=== PATIENT | male | born 1960 | race African-American/Black ===

== ENCOUNTER 2016-11-10 17:10 | Inpatient (IN) | payer MEDICARE, OTHER ==
[~2016-11-10] VITALS: Ht 170.2 cm; Wt 74.1 kg
[~2016-11-10 17:10] MED LIST: ALBU8.5H IH; AMLO10TA55 PO; ASPI-1061 PO; BECL8.7A6 IH; CARV12 PO; DOCU-119 PO; LISI-661 PO; MULT-1238 PO; PRAV20TA4 PO
[2016-11-10 17:45] LABS: ABG A-A DIFF O2 50.5 mmHg (10-20.0); ABG BASE EXCESS -3.5 mmol/L (-2.0-3.0); ABG HCO3 21.4 mmol/L (22.0-26.0); ABG OXYHEMOGLOBIN 92.8 % (94.0-100.0); ABG PCO2 45 mmHg (35-45); ABG PH 7.316 (7.35-7.450)
[2016-11-10] MEDS ORDERED: MethylPREDNISolone SOD SUCC 125 MG/2 ML VIAL IVP ONE (17:45)
[2016-11-10 17:46] LABS: ALLEN TEST, BLOOD GAS Positive; IPAP, BG 14 cm H2O
[2016-11-10 17:49] LABS: BASOPHILS # (AUTO) 0.07 K/uL (0.00-0.20); BASOPHILS % (AUTO) 0.9 % (0.0-2.0); EOSINOPHILS # (AUTO) 0.06 K/uL (0.00-0.70); EOSINOPHILS % (AUTO) 0.79 % (1.0-6.0); HEMATOCRIT 48.5 % (41-53); LYMPHOCYTES # (AUTO) 2.3 K/uL (1.0-4.8); LYMPHOCYTES % (AUTO) 30.1 % (22.0-44.0); MEAN CORPUSCULAR HEMOGLOBIN 32.2 pg (26.0-34.0); MEAN CORPUSCULAR HGB CONC 33.1 G/dL (31.0-37.0); MEAN CORPUSCULAR VOLUME 97 fL (80-100); MONOCYTES # (AUTO) 0.8 K/uL (0.1-1.0); MONOCYTES % (AUTO) 10.6 % (2.0-9.0); NEUTROPHILS # (AUTO) 4.4 K/uL (1.8-7.7); NEUTROPHILS % (AUTO) 57.6 % (40.0-70.0); PLATELET COUNT (AUTO) 282 K/uL (150-450); RED BLOOD CELL COUNT(AUTO) 4.98 MIL/uL (4.50-5.90); RED CELL DISTRIBUTION WIDTH 16.1 % (11.5-14.5); WHITE BLOOD COUNT (AUTO) 7.6 K/uL (4.5-11.0)
[2016-11-10 18:08] LABS: INR 0.9 (0.9-1.1)
[2016-11-10 18:15] LABS: B-TYPE NATRIURETIC PEPTIDE 6 pg/mL (0-100)
[2016-11-10 18:33] LABS: ALANINE AMINOTRANSFERASE 38 U/L (12-78); ALBUMIN 3.7 g/dL (3.4-5.0); ANION GAP 14 mmol/L (8-16); ASPARTATE AMINOTRANSFERASE 37 U/L (15-37); BILIRUBIN,TOTAL 0.3 mg/dL (0.1-1.0); CALCIUM, TOTAL 8.7 mg/dL (8.8-10.5); CARBON DIOXIDE 25 mmol/L (22-29); CHLORIDE 103 mmol/L (98-107); CREATINE KINASE MB 8.5 ng/mL (0-5); CREATINE KINASE, TOTAL 660 U/L (39-308); CREATININE 1.02 mg/dL (0.60-1.30); GLOMERULAR FILTR. RATE CALC > 60 mL/min (>60); SODIUM SERUM 142 mmol/L (136-145); TOTAL PROTEIN, SERUM 7.3 g/dL (6.4-8.2); UREA NITROGEN, BLOOD 7 mg/dL (7-18)
[2016-11-10 18:41] LABS: POTASSIUM 2.9 mmol/L (3.5-5.1)
[2016-11-10 19:51] LABS: APPEARANCE,URINE SLIGHTLY CLOUDY (CLEAR)
[2016-11-10 19:52] LABS: GLUCOSE, URINE (UA) NEGATIVE (NEGATIVE); KETONES,URINE NEGATIVE (NEGATIVE); OCCULT BLOOD,URINE SMALL (NEGATIVE); PROTEIN,URINE POS 1+ (NEGATIVE)
[2016-11-10 19:53] LABS: ADD UA MICROSCOPIC YES; LEUKOCYTE ESTERASE ,URINE NEGATIVE (NEGATIVE)
[2016-11-10 19:55] LABS: SQUAMOUS EPITHELIAL CELL,UR Few /LPF (None Seen)
[2016-11-10] MEDS ORDERED: ACETAMINOPHEN 325 MG TABLET PO PRN ×2 (20:00→20:30)
[2016-11-10] MEDS ORDERED: ONDANSETRON HCL 4 MG/2 ML VIAL IVP PRN ×2 (20:00→20:30)
[2016-11-10] MEDS ORDERED: 0.9% SODIUM CHLORIDE 10 ML SYRINGE IVP PRN (20:00)
[2016-11-10] MEDS: POTASSIUM CHL 10 MEQ/WATER 50 ML IV SCH ×4 (20:18→23:20)
[2016-11-10] MEDS ORDERED: BISACODYL 10 MG RECTAL RECTAL SUPPOSITORY PR PRN (20:30)
[2016-11-10] MEDS ORDERED: MAGNESIUM SULFATE 2 GM in DEXTROSE 5%-WATER 50 ML IV PRN (20:30)
[2016-11-10] MEDS ORDERED: ALBUTEROL SULFATE 2.5 MG/0.5 ML NEB SOLUTION NEB PRN (20:30)
[2016-11-10] MEDS ORDERED: MAGNESIUM OXIDE 400 MG TABLET PO PRN (20:30)
[2016-11-10] MEDS ORDERED: MAGNESIUM HYDROXIDE SUSPENSION 30 ML UDCUP PO PRN (20:30)
[2016-11-10] MEDS ORDERED: POTASSIUM CHLORIDE 20 MEQ ER TABLET PO PRN ×2 (20:30)
[2016-11-10] MEDS ORDERED: CloNIDine HCL 0.1 MG TABLET PO PRN (20:30)
[2016-11-10] MEDS ORDERED: MAGNESIUM SULFATE 4 GM/WATER 100 ML IV PRN (20:30)
[2016-11-10] MEDS ORDERED: IPRATROPIUM BROMIDE 0.5 MG/2.5 ML NEB SOLUTION NEB PRN (20:30)
[2016-11-10] MEDS ORDERED: POTASSIUM CHL 10 MEQ/WATER 50 ML IV PRN (20:30)
[2016-11-10] MEDS ORDERED: ZOLPIDEM TARTRATE 5 MG TABLET PO PRN (20:30)
[2016-11-10] MEDS: CARVEDILOL 12.5 MG TABLET PO SCH (22:15)
[2016-11-10] MEDS: PRAVASTATIN SODIUM 20 MG TABLET PO SCH (22:15)
[2016-11-10] MEDS: BECLOMETHASONE DIPR 40 MCG/PUFF 8.7 GM INHALER IH SCH (22:15)
[2016-11-10] MEDS: HEPARIN SODIUM,PORCINE 5,000 UNITS/ML VIAL SQ SCH (22:16)
[2016-11-11 07:43] LABS: EOSINOPHILS % (AUTO) 0 % (1.0-6.0); HEMATOCRIT 50.1 % (41-53); HEMOGLOBIN 16.2 g/dL (13.5-17.5); LYMPHOCYTES # (AUTO) 0.8 K/uL (1.0-4.8); LYMPHOCYTES % (AUTO) 8.2 % (22.0-44.0); MEAN CORPUSCULAR HEMOGLOBIN 31.8 pg (26.0-34.0); MEAN CORPUSCULAR HGB CONC 32.4 G/dL (31.0-37.0); MEAN CORPUSCULAR VOLUME 98 fL (80-100); MONOCYTES # (AUTO) 0.1 K/uL (0.1-1.0); NEUTROPHILS # (AUTO) 8.4 K/uL (1.8-7.7); PLATELET COUNT (AUTO) 269 K/uL (150-450); RED CELL DISTRIBUTION WIDTH 15.9 % (11.5-14.5); WHITE BLOOD COUNT (AUTO) 9.2 K/uL (4.5-11.0)
[2016-11-11 07:47] LABS: NEUTROPHILS % (AUTO) 90.8 % (40.0-70.0)
[2016-11-11 08:32] LABS: ALANINE AMINOTRANSFERASE 39 U/L (12-78); ALBUMIN 3.4 g/dL (3.4-5.0); ANION GAP 9 mmol/L (8-16); ASPARTATE AMINOTRANSFERASE 39 U/L (15-37); BILIRUBIN,TOTAL 0.7 mg/dL (0.1-1.0); CALCIUM, TOTAL 9.1 mg/dL (8.8-10.5); CARBON DIOXIDE 28 mmol/L (22-29); CHLORIDE 106 mmol/L (98-107); CHOL/HDL RATIO 1.9 (4.2-7.3); CREATININE 0.97 mg/dL (0.60-1.30); GLOMERULAR FILTR. RATE CALC > 60 mL/min (>60); POTASSIUM 4.6 mmol/L (3.5-5.1); SODIUM SERUM 143 mmol/L (136-145); THYROID STIMULATING HORMONE 0.33 uIU/mL (0.36-3.74); TOTAL PROTEIN, SERUM 7.2 g/dL (6.4-8.2); UREA NITROGEN, BLOOD 8 mg/dL (7-18)
[2016-11-11 09:01] VITALS: BP 136/79
[2016-11-11] MEDS: BECLOMETHASONE DIPR 40 MCG/PUFF 8.7 GM INHALER IH SCH ×2 (09:26→22:14)
[2016-11-11] MEDS: MethylPREDNISolone SOD SUCC 125 MG/2 ML VIAL IVP SCH ×3 (09:26→21:00)
[2016-11-11] MEDS: PANTOPRAZOLE SODIUM 40 MG DR TABLET PO SCH (09:28)
[2016-11-11] MEDS: ASPIRIN 81 MG EC TABLET PO SCH (09:28)
[2016-11-11] MEDS: AmLODIPine BESYLATE 10 MG TABLET PO SCH (09:28)
[2016-11-11] MEDS: CARVEDILOL 12.5 MG TABLET PO SCH ×2 (09:30→22:13)
[2016-11-11] MEDS: HEPARIN SODIUM,PORCINE 5,000 UNITS/ML VIAL SQ SCH ×2 (12:00→22:14)
[2016-11-11 14:05] VITALS: BP 141/92
[2016-11-11 18:55] VITALS: BP 132/81
[2016-11-11 21:46] VITALS: BP 144/86
[2016-11-11] MEDS: PRAVASTATIN SODIUM 20 MG TABLET PO SCH (22:13)
[2016-11-11 23:29] VITALS: BP 142/87
[2016-11-12 04:08] VITALS: BP 130/80
[2016-11-12 07:16] VITALS: BP 150/98
[2016-11-12] MEDS: BECLOMETHASONE DIPR 40 MCG/PUFF 8.7 GM INHALER IH SCH ×2 (07:29→21:27)
[2016-11-12] MEDS: OxyCODONE HCL/ACETAMINOPHEN 5-325 MG TABLET PO PRN ×2 (07:30→21:28)
[2016-11-12] MEDS: HEPARIN SODIUM,PORCINE 5,000 UNITS/ML VIAL SQ SCH ×2 (07:32→21:28)
[2016-11-12] MEDS: MethylPREDNISolone SOD SUCC 125 MG/2 ML VIAL IVP SCH ×3 (07:32→21:27)
[2016-11-12] MEDS: LISINOPRIL 10 MG TABLET PO SCH ×2 (09:00→11:54)
[2016-11-12 09:12] VITALS: BP 147/98
[2016-11-12] MEDS: AmLODIPine BESYLATE 10 MG TABLET PO SCH (09:13)
[2016-11-12] MEDS: PANTOPRAZOLE SODIUM 40 MG DR TABLET PO SCH (09:13)
[2016-11-12] MEDS: CARVEDILOL 12.5 MG TABLET PO SCH ×2 (09:13→21:27)
[2016-11-12] MEDS: ASPIRIN 81 MG EC TABLET PO SCH (09:14)
[2016-11-12 11:10] VITALS: BP 120/76
[2016-11-12 15:20] VITALS: BP 140/85
[2016-11-12 19:45] VITALS: BP 157/95
[2016-11-12] MEDS: PRAVASTATIN SODIUM 20 MG TABLET PO SCH (21:27)
[2016-11-13 00:33] VITALS: BP 120/78
[2016-11-13 05:47] VITALS: BP 135/76
[2016-11-13 07:17] VITALS: BP 151/92
[2016-11-13] MEDS: LISINOPRIL 10 MG TABLET PO SCH ×2 (09:00→09:17)
[2016-11-13] MEDS: BECLOMETHASONE DIPR 40 MCG/PUFF 8.7 GM INHALER IH SCH (09:17)
[2016-11-13] MEDS: ASPIRIN 81 MG EC TABLET PO SCH (09:17)
[2016-11-13] MEDS: PANTOPRAZOLE SODIUM 40 MG DR TABLET PO SCH (09:17)
[2016-11-13] MEDS: MethylPREDNISolone SOD SUCC 125 MG/2 ML VIAL IVP SCH ×2 (09:17→15:38)
[2016-11-13] MEDS: CARVEDILOL 12.5 MG TABLET PO SCH (09:17)
[2016-11-13] MEDS: AmLODIPine BESYLATE 10 MG TABLET PO SCH (09:17)
[2016-11-13] MEDS: HEPARIN SODIUM,PORCINE 5,000 UNITS/ML VIAL SQ SCH (09:18)
[2016-11-13 11:13] VITALS: BP 122/81
[2016-11-13] MEDS: OxyCODONE HCL/ACETAMINOPHEN 5-325 MG TABLET PO PRN (11:45)
[2016-11-13] MEDS ORDERED: PRED20 PO ×3 (15:18→15:20)
[2016-11-13] MEDS ORDERED: PRED10 PO ×2 (15:19→15:21)
[2016-11-13 15:36] VITALS: BP 143/78
== END 2016-11-13 16:55 | disposition home or self-care (01) | DRG 190 ==
LOC: EMS 17:13 → AHU 11-11 07:53 → UNDOADMIN 11-11 08:34 → AHU 11-11 08:34 → 5S 11-11 21:35
PROVIDERS: ADMIT Internal Medicine; ATTEND Internal Medicine
DX: J44.1 Chronic obstructive pulmonary disease with (acute) exacerbation (principal); J96.20 Acute and chronic respiratory failure, unspecified whether with hypoxia or hypercapnia; E83.51 Hypocalcemia; I10 Essential (primary) hypertension; E87.6 Hypokalemia; E78.5 Hyperlipidemia, unspecified; F12.10 Cannabis abuse, uncomplicated; F10.10 Alcohol abuse, uncomplicated; K59.00 Constipation, unspecified; E03.9 Hypothyroidism, unspecified; E78.00 Pure hypercholesterolemia, unspecified; J45.909 Unspecified asthma, uncomplicated; F17.200 Nicotine dependence, unspecified, uncomplicated; I73.9 Peripheral vascular disease, unspecified; Z88.0 Allergy status to penicillin; Z79.899 Other long term (current) drug therapy; Z79.51 Long term (current) use of inhaled steroids; Z90.49 Acquired absence of other specified parts of digestive tract; Z71.6 Tobacco abuse counseling; Z98.890 Other specified postprocedural states
CPT/HCPCS: 82306; 82805; 83735; 84443; 85379; 93005; 94640; 94660; 96361; 96374; 99285; J1644; J2930; J3480; J3535

== ENCOUNTER 2016-12-03 00:28 | Inpatient (IN) | payer MEDICARE, OTHER ==
[~2016-12-03] VITALS: Ht 167.6 cm; Wt 73.5 kg
[~2016-12-03 00:28] MED LIST changes: +PRED10 PO; +PRED20 PO
[2016-12-03] MEDS ORDERED: PRED20 PO (00:43)
[2016-12-03] MEDS ORDERED: MethylPREDNISolone SOD SUCC 125 MG/2 ML VIAL IVP ONE (01:00)
[2016-12-03] MEDS ORDERED: IPRATROPIUM BROMIDE 0.5 MG/2.5 ML NEB SOLUTION NEB ONE ×3 (01:00→03:45)
[2016-12-03] MEDS ORDERED: ALBUTEROL SULFATE 5 MG/ML 20 ML NEB SOLN [BULK] NEB ONE ×3 (01:00→03:45)
[2016-12-03] MEDS ORDERED: KETOROLAC TROMETHAMINE 30 MG/ML VIAL IM ONE (02:15)
[2016-12-03] MEDS ORDERED: MAGNESIUM SULFATE 2 GM in DEXTROSE 5%-WATER 50 ML IV ONE (04:00)
[2016-12-03 05:50] LABS: EOSINOPHILS % (AUTO) 0.1 % (1.0-6.0); HEMATOCRIT 46.4 % (41-53); LYMPHOCYTES # (AUTO) 0.3 K/uL (1.0-4.8); LYMPHOCYTES % (AUTO) 4.1 % (22.0-44.0); MEAN CORPUSCULAR HEMOGLOBIN 31.8 pg (26.0-34.0); MEAN CORPUSCULAR HGB CONC 32.4 G/dL (31.0-37.0); MEAN CORPUSCULAR VOLUME 98 fL (80-100); MONOCYTES # (AUTO) 0.1 K/uL (0.1-1.0); MONOCYTES % (AUTO) 0.6 % (2.0-9.0); NEUTROPHILS # (AUTO) 7.9 K/uL (1.8-7.7); PLATELET COUNT (AUTO) 237 K/uL (150-450); RED BLOOD CELL COUNT(AUTO) 4.73 MIL/uL (4.50-5.90); RED CELL DISTRIBUTION WIDTH 15.3 % (11.5-14.5); WHITE BLOOD COUNT (AUTO) 8.3 K/uL (4.5-11.0)
[2016-12-03 05:51] LABS: NEUTROPHILS % (AUTO) 95.2 % (40.0-70.0)
[2016-12-03 05:58] LABS: ANION GAP 13 mmol/L (8-16); CARBON DIOXIDE 24 mmol/L (22-29); CHLORIDE 101 mmol/L (98-107); CREATININE 1.37 mg/dL (0.60-1.30); GLOMERULAR FILTR. RATE CALC > 60 mL/min (>60); POTASSIUM 3.5 mmol/L (3.5-5.1); SODIUM SERUM 138 mmol/L (136-145); UREA NITROGEN, BLOOD 12 mg/dL (7-18)
[2016-12-03 06:22] LABS: ALANINE AMINOTRANSFERASE 33 U/L (12-78); ALBUMIN 3.2 g/dL (3.4-5.0); ASPARTATE AMINOTRANSFERASE 27 U/L (15-37); BILIRUBIN,TOTAL 0.2 mg/dL (0.1-1.0); CREATINE KINASE, TOTAL 363 U/L (39-308); TOTAL PROTEIN, SERUM 6.9 g/dL (6.4-8.2)
[2016-12-03] MEDS ORDERED: ACETAMINOPHEN 325 MG TABLET PO PRN ×2 (07:15→11:00)
[2016-12-03] MEDS ORDERED: MORPHINE SULFATE 2 MG/ML SYRINGE IVP PRN (10:45)
[2016-12-03] MEDS ORDERED: ALBUTEROL SULFATE 2.5 MG/0.5 ML NEB SOLUTION NEB SCH (11:00)
[2016-12-03] MEDS ORDERED: ZOLPIDEM TARTRATE 5 MG TABLET PO PRN (11:00)
[2016-12-03] MEDS ORDERED: MAGNESIUM HYDROXIDE SUSPENSION 30 ML UDCUP PO PRN (11:00)
[2016-12-03] MEDS ORDERED: IPRATROPIUM BROMIDE 0.5 MG/2.5 ML NEB SOLUTION NEB PRN (11:00)
[2016-12-03] MEDS ORDERED: ALBUTEROL SULFATE 2.5 MG/0.5 ML NEB SOLUTION NEB PRN (11:00)
[2016-12-03] MEDS ORDERED: ONDANSETRON HCL 4 MG/2 ML VIAL IVP PRN (11:00)
[2016-12-03] MEDS ORDERED: BISACODYL 10 MG RECTAL RECTAL SUPPOSITORY PR PRN (11:00)
[2016-12-03] MEDS ORDERED: IPRATROPIUM BROMIDE 0.5 MG/2.5 ML NEB SOLUTION NEB SCH (11:00)
[2016-12-03] MEDS: OxyCODONE HCL/ACETAMINOPHEN 5-325 MG TABLET PO PRN ×2 (11:20→17:54)
[2016-12-03 11:39] VITALS: BP 143/66
[2016-12-03] MEDS: MethylPREDNISolone SOD SUCC 125 MG/2 ML VIAL IVP SCH ×2 (12:57→17:46)
[2016-12-03 15:10] VITALS: BP 134/73
[2016-12-03] MEDS: BENZONATATE 100 MG CAPSULE PO SCH ×2 (17:47→21:01)
[2016-12-03] MEDS: HEPARIN SODIUM,PORCINE 5,000 UNITS/ML VIAL SQ SCH (17:47)
[2016-12-03 19:37] VITALS: BP 145/86
[2016-12-03] MEDS ORDERED: PRAVASTATIN SODIUM 20 MG TABLET PO SCH (21:00)
[2016-12-03] MEDS: IPRATROPIUM BROMIDE 0.5 MG/2.5 ML NEB SOLUTION NEB SCH (21:00)
[2016-12-03] MEDS: ALBUTEROL SULFATE 2.5 MG/0.5 ML NEB SOLUTION NEB SCH (21:00)
[2016-12-03] MEDS: DOCUSATE SODIUM 100 MG CAPSULE PO SCH (21:01)
[2016-12-03] MEDS: CARVEDILOL 12.5 MG TABLET PO SCH (21:01)
[2016-12-03] MEDS: GUAIFENESIN 600 MG PO SCH (21:01)
[2016-12-03 23:52] VITALS: BP 111/64
[2016-12-04] MEDS: MethylPREDNISolone SOD SUCC 125 MG/2 ML VIAL IVP SCH ×2 (01:43→06:34)
[2016-12-04] MEDS: HEPARIN SODIUM,PORCINE 5,000 UNITS/ML VIAL SQ SCH ×2 (01:43→08:44)
[2016-12-04] MEDS: IPRATROPIUM BROMIDE 0.5 MG/2.5 ML NEB SOLUTION NEB SCH ×2 (02:18→07:18)
[2016-12-04] MEDS: ALBUTEROL SULFATE 2.5 MG/0.5 ML NEB SOLUTION NEB SCH ×2 (02:18→07:18)
[2016-12-04] MEDS: OxyCODONE HCL/ACETAMINOPHEN 5-325 MG TABLET PO PRN ×2 (02:39→08:45)
[2016-12-04 04:39] VITALS: BP 119/69
[2016-12-04 07:26] VITALS: BP 151/98
[2016-12-04] MEDS: GUAIFENESIN 600 MG PO SCH (08:44)
[2016-12-04] MEDS: DOCUSATE SODIUM 100 MG CAPSULE PO SCH (08:45)
[2016-12-04] MEDS: CARVEDILOL 12.5 MG TABLET PO SCH (08:45)
[2016-12-04] MEDS: BENZONATATE 100 MG CAPSULE PO SCH (08:46)
[2016-12-04] MEDS ORDERED: LISINOPRIL 10 MG TABLET PO SCH (09:00)
[2016-12-04] MEDS ORDERED: PANTOPRAZOLE SODIUM 40 MG DR TABLET PO SCH (09:00)
[2016-12-04] MEDS ORDERED: AmLODIPine BESYLATE 10 MG TABLET PO SCH (09:00)
[2016-12-04] MEDS ORDERED: BECLOMETHASONE DIPR 40 MCG/PUFF 8.7 GM INHALER IH SCH (09:00)
[2016-12-04] MEDS ORDERED: ASPIRIN 81 MG EC TABLET PO SCH (09:00)
[2016-12-04 11:13] VITALS: BP 142/81
[2016-12-04] MEDS ORDERED: OMEP20 PO (12:56)
[2016-12-04] MEDS ORDERED: GUAIF600 PO (12:57)
== END 2016-12-04 13:15 | disposition home or self-care (01) | DRG 192 ==
LOC: EMS 00:29 → 5S 08:33
PROVIDERS: ADMIT Internal Medicine; ATTEND Internal Medicine
DX: J44.1 Chronic obstructive pulmonary disease with (acute) exacerbation (principal); E88.09 Other disorders of plasma-protein metabolism, not elsewhere classified; I10 Essential (primary) hypertension; E78.5 Hyperlipidemia, unspecified; F17.210 Nicotine dependence, cigarettes, uncomplicated; F12.90 Cannabis use, unspecified, uncomplicated; J45.909 Unspecified asthma, uncomplicated; E78.00 Pure hypercholesterolemia, unspecified; Z98.890 Other specified postprocedural states; Z79.82 Long term (current) use of aspirin; Z79.51 Long term (current) use of inhaled steroids; Z79.899 Other long term (current) drug therapy; Z72.89 Other problems related to lifestyle; Z88.0 Allergy status to penicillin; Z90.49 Acquired absence of other specified parts of digestive tract; Z82.5 Family history of asthma and other chronic lower respiratory diseases; Z82.49 Family history of ischemic heart disease and other diseases of the circulatory system; Z84.89 Family history of other specified conditions
CPT/HCPCS: 93005; 94640; 94644; 94645; 96365; 96366; 96372; 96375; 99285; J1644; J1885; J2930; J3475; J3535; J7060

== ENCOUNTER 2016-12-08 19:28 | Inpatient (IN) | payer MEDICARE, OTHER ==
[~2016-12-08] VITALS: Ht 167.6 cm; Wt 73.9 kg
[~2016-12-08 19:28] MED LIST changes: +GUAIF600 PO; +OMEP20 PO; -PRED10 PO
[2016-12-08] MEDS ORDERED: NITROGLYCERIN 0.4 MG SUBLINGUAL TABLET #25 SL ONE (19:30)
[2016-12-08] MEDS ORDERED: ALBUTEROL SULFATE 5 MG/ML 20 ML NEB SOLN [BULK] NEB ONE ×3 (19:35→20:45)
[2016-12-08] MEDS ORDERED: IPRATROPIUM BROMIDE 0.5 MG/2.5 ML NEB SOLUTION NEB ONE ×3 (19:35→20:45)
[2016-12-08] MEDS ORDERED: 0.9% SODIUM CHLORIDE 5 ML NEB SOLUTION NEB ONE ×2 (19:36→20:50)
[2016-12-08] MEDS ORDERED: MethylPREDNISolone SOD SUCC 125 MG/2 ML VIAL IVP ONE (19:45)
[2016-12-08] MEDS ORDERED: LORazepam 2 MG/ML VIAL IVP ONE (19:45)
[2016-12-08 19:52] LABS: GLUCOSE,POINT OF CARE 143 MG/DL (70-110)
[2016-12-08 20:01] LABS: BASOPHILS % (AUTO) 0.2 % (0.0-2.0); EOSINOPHILS % (AUTO) 0 % (1.0-6.0); HEMATOCRIT 49.8 % (41-53); HEMOGLOBIN 16.1 g/dL (13.5-17.5); LYMPHOCYTES % (AUTO) 15.6 % (22.0-44.0); MEAN CORPUSCULAR HEMOGLOBIN 31.8 pg (26.0-34.0); MEAN CORPUSCULAR HGB CONC 32.4 G/dL (31.0-37.0); MEAN CORPUSCULAR VOLUME 98 fL (80-100); MONOCYTES # (AUTO) 1.1 K/uL (0.1-1.0); MONOCYTES % (AUTO) 8.4 % (2.0-9.0); NEUTROPHILS # (AUTO) 9.5 K/uL (1.8-7.7); NEUTROPHILS % (AUTO) 75.8 % (40.0-70.0); PLATELET COUNT (AUTO) 363 K/uL (150-450); RED BLOOD CELL COUNT(AUTO) 5.07 MIL/uL (4.50-5.90); RED CELL DISTRIBUTION WIDTH 15.7 % (11.5-14.5); WHITE BLOOD COUNT (AUTO) 12.6 K/uL (4.5-11.0)
[2016-12-08 20:05] LABS: ANION GAP 9 mmol/L (8-16); CALCIUM, TOTAL 9.3 mg/dL (8.8-10.5); CARBON DIOXIDE 28 mmol/L (22-29); CHLORIDE 106 mmol/L (98-107); CREATININE 1.05 mg/dL (0.60-1.30); GLOMERULAR FILTR. RATE CALC > 60 mL/min (>60); POTASSIUM 3.6 mmol/L (3.5-5.1); SODIUM SERUM 143 mmol/L (136-145); UREA NITROGEN, BLOOD 16 mg/dL (7-18)
[2016-12-08 20:29] LABS: B-TYPE NATRIURETIC PEPTIDE 17 pg/mL (0-100)
[2016-12-08 20:36] LABS: ALANINE AMINOTRANSFERASE 48 U/L (12-78); ALBUMIN 3.7 g/dL (3.4-5.0); ASPARTATE AMINOTRANSFERASE 24 U/L (15-37); BILIRUBIN,TOTAL 0.2 mg/dL (0.1-1.0); CREATINE KINASE, TOTAL 260 U/L (39-308); TOTAL PROTEIN, SERUM 7.5 g/dL (6.4-8.2)
[2016-12-08 20:43] LABS: ABG A-A DIFF O2 252.7 mmHg (10-20.0); ABG BASE EXCESS 1.5 mmol/L (-2.0-3.0); ABG HCO3 24.6 mmol/L (22.0-26.0); ABG OXYHEMOGLOBIN 97.4 % (94.0-100.0); ABG PCO2 60 mmHg (35-45); ABG PH 7.292 (7.35-7.450); ALLEN TEST, BLOOD GAS POSITIVE; TEMPERATURE, FAHRENHEIT, BG 98.6 FAHREN (96.0-98.6)
[2016-12-08 20:44] LABS: IPAP, BG 22 cm H2O
[2016-12-08 20:57] LABS: LACTIC ACID 1.5 mmol/L (0.4-2.0)
[2016-12-08 21:06] LABS: INFLUENZA TYPE B NEGATIVE FOR TYPE B (NEGATIVE)
[2016-12-08] MEDS ORDERED: ACETAMINOPHEN 325 MG TABLET PO PRN ×2 (21:15→22:00)
[2016-12-08] MEDS ORDERED: 0.9% SODIUM CHLORIDE 10 ML SYRINGE IVP PRN (21:15)
[2016-12-08] MEDS ORDERED: ONDANSETRON HCL 4 MG/2 ML VIAL IVP PRN ×2 (21:15→22:00)
[2016-12-08 21:40] VITALS: BP 137/94
[2016-12-08] MEDS ORDERED: MAGNESIUM HYDROXIDE SUSPENSION 30 ML UDCUP PO PRN (22:00)
[2016-12-08] MEDS ORDERED: BISACODYL 10 MG RECTAL RECTAL SUPPOSITORY PR PRN (22:00)
[2016-12-08] MEDS ORDERED: GuaiFENesin/D-METHORPHAN/PHENYLEPH 5 ML LIQUID ORAL.SYG PO PRN (22:00)
[2016-12-08] MEDS ORDERED: ZOLPIDEM TARTRATE 5 MG TABLET PO PRN (22:00)
[2016-12-08] MEDS ORDERED: BENZOCAINE/MENTHOL LOZENGE [8 LOZENGES/PACKET] MM PRN (22:30)
[2016-12-08] MEDS ORDERED: SODIUM CHLORIDE 0.9% 250 ML IV ONE (23:03)
[2016-12-08] MEDS: LEVOFLOXACIN 500 MG/D5% WATER 100 ML IV SCH (23:15)
[2016-12-08 23:24] LABS: ABG A-A DIFF O2 95.7 mmHg (10-20.0); ABG BASE EXCESS 3.1 mmol/L (-2.0-3.0); ABG HCO3 26.2 mmol/L (22.0-26.0); ABG OXYHEMOGLOBIN 95.1 % (94.0-100.0); ABG PCO2 52 mmHg (35-45); ABG PH 7.359 (7.35-7.450); TEMPERATURE, FAHRENHEIT, BG 98.6 FAHREN (96.0-98.6)
[2016-12-09] VITALS (11 sets, daily range): BP systolic 124–153; BP diastolic 80–103
[2016-12-09 00:38] LABS: ALLEN TEST, BLOOD GAS Positive; IPAP, BG 20 cm H2O
[2016-12-09] MEDS: ALBUTEROL SULFATE 2.5 MG/0.5 ML NEB SOLUTION NEB PRN (03:03)
[2016-12-09] MEDS: IPRATROPIUM BROMIDE 0.5 MG/2.5 ML NEB SOLUTION NEB PRN (03:03)
[2016-12-09 03:56] LABS: APPEARANCE,URINE CLEAR (CLEAR); GLUCOSE, URINE (UA) NEGATIVE (NEGATIVE); KETONES,URINE NEGATIVE (NEGATIVE); LEUKOCYTE ESTERASE ,URINE NEGATIVE (NEGATIVE); OCCULT BLOOD,URINE NEGATIVE (NEGATIVE); PH,URINE 5.5 (5.0-8.0); PROTEIN,URINE SEE CONFIRM (NEGATIVE)
[2016-12-09] MEDS: OxyCODONE HCL/ACETAMINOPHEN 5-325 MG TABLET PO PRN ×3 (03:56→15:14)
[2016-12-09 03:57] LABS: ADD UA MICROSCOPIC YES
[2016-12-09 04:06] LABS: SULFOSALICYLIC ACID,URINE 1+ (Negative)
[2016-12-09 04:07] LABS: RBC,URINE 0-2 /HPF (0-2); WBC,URINE 0-2 /HPF (0-5)
[2016-12-09 04:08] LABS: HYALINE CASTS, URINE 0-2 /LPF (None Seen); SQUAMOUS EPITHELIAL CELL,UR Rare /LPF (None Seen)
[2016-12-09 05:17] LABS: BASOPHILS % (AUTO) 0.2 % (0.0-2.0); EOSINOPHILS % (AUTO) 0 % (1.0-6.0); HEMATOCRIT 46.5 % (41-53); HEMOGLOBIN 14.7 g/dL (13.5-17.5); LYMPHOCYTES # (AUTO) 0.6 K/uL (1.0-4.8); LYMPHOCYTES % (AUTO) 3.2 % (22.0-44.0); MEAN CORPUSCULAR HEMOGLOBIN 31.4 pg (26.0-34.0); MEAN CORPUSCULAR HGB CONC 31.6 G/dL (31.0-37.0); MEAN CORPUSCULAR VOLUME 99 fL (80-100); MONOCYTES # (AUTO) 0.3 K/uL (0.1-1.0); MONOCYTES % (AUTO) 1.7 % (2.0-9.0); NEUTROPHILS # (AUTO) 17.9 K/uL (1.8-7.7); PLATELET COUNT (AUTO) 364 K/uL (150-450); RED BLOOD CELL COUNT(AUTO) 4.68 MIL/uL (4.50-5.90); RED CELL DISTRIBUTION WIDTH 15.4 % (11.5-14.5); WHITE BLOOD COUNT (AUTO) 18.9 K/uL (4.5-11.0)
[2016-12-09 06:16] LABS: ANION GAP 8 mmol/L (8-16); CALCIUM, TOTAL 9.2 mg/dL (8.8-10.5); CARBON DIOXIDE 27 mmol/L (22-29); CHLORIDE 106 mmol/L (98-107); CREATININE 1.14 mg/dL (0.60-1.30); GLOMERULAR FILTR. RATE CALC > 60 mL/min (>60); POTASSIUM 4.7 mmol/L (3.5-5.1); SODIUM SERUM 141 mmol/L (136-145); UREA NITROGEN, BLOOD 18 mg/dL (7-18)
[2016-12-09 06:17] LABS: ALANINE AMINOTRANSFERASE 41 U/L (12-78); ALBUMIN 3.2 g/dL (3.4-5.0); ASPARTATE AMINOTRANSFERASE 23 U/L (15-37); BILIRUBIN,TOTAL 0.3 mg/dL (0.1-1.0); PHOSPHORUS 3.9 mg/dL (2.5-4.9); TOTAL PROTEIN, SERUM 6.9 g/dL (6.4-8.2)
[2016-12-09 06:37] LABS: NEUTROPHILS % (AUTO) 94.9 % (40.0-70.0)
[2016-12-09] MEDS: MethylPREDNISolone SOD SUCC 125 MG/2 ML VIAL IVP SCH ×3 (08:10→23:32)
[2016-12-09] MEDS: HEPARIN SODIUM,PORCINE 5,000 UNITS/ML VIAL SQ SCH ×2 (08:10→21:56)
[2016-12-09] MEDS: LISINOPRIL 10 MG TABLET PO SCH (08:11)
[2016-12-09] MEDS: PANTOPRAZOLE SODIUM 40 MG DR TABLET PO SCH (08:11)
[2016-12-09] MEDS: AmLODIPine BESYLATE 5 MG TABLET PO SCH (08:11)
[2016-12-09] MEDS: CARVEDILOL 12.5 MG TABLET PO SCH ×2 (08:11→21:54)
[2016-12-09] MEDS: ASPIRIN 81 MG EC TABLET PO SCH (08:11)
[2016-12-09] MEDS ORDERED: BECLOMETHASONE DIPR 40 MCG/PUFF 8.7 GM INHALER IH SCH (09:00)
[2016-12-09 11:42] LABS: ABG A-A DIFF O2 75.4 mmHg (10-20.0); ABG BASE EXCESS 3.2 mmol/L (-2.0-3.0); ABG HCO3 26.7 mmol/L (22.0-26.0); ABG OXYHEMOGLOBIN 97.4 % (94.0-100.0); ABG PCO2 48 mmHg (35-45); ABG PH 7.391 (7.35-7.450); TEMPERATURE, FAHRENHEIT, BG 98.7 FAHREN (96.0-98.6)
[2016-12-09 11:43] LABS: ALLEN TEST, BLOOD GAS Positive
[2016-12-09 11:45] LABS: IPAP, BG 16 cm H2O
[2016-12-09] MEDS: NICOTINE 7 MG/24 HOUR PATCH TD SCH ×2 (12:29→12:32)
[2016-12-09] MEDS: BUDESONIDE 0.5 MG/2 ML NEB SOLUTION NEB SCH (19:33)
[2016-12-09] MEDS: LEVOFLOXACIN 500 MG/D5% WATER 100 ML IV SCH (23:20)
[2016-12-09] MEDS: PRAVASTATIN SODIUM 20 MG TABLET PO SCH (23:20)
[2016-12-09] MEDS ORDERED: SODIUM CHLORIDE 0.9% 250 ML IV ONE (23:27)
[2016-12-10 00:06] VITALS: BP 117/84
[2016-12-10 04:10] VITALS: BP 130/87
[2016-12-10 06:56] LABS: BASOPHILS % (AUTO) 0.3 % (0.0-2.0); EOSINOPHILS % (AUTO) 0 % (1.0-6.0); HEMATOCRIT 41.1 % (41-53); HEMOGLOBIN 13.3 g/dL (13.5-17.5); LYMPHOCYTES # (AUTO) 1.1 K/uL (1.0-4.8); LYMPHOCYTES % (AUTO) 6.9 % (22.0-44.0); MEAN CORPUSCULAR HEMOGLOBIN 31.7 pg (26.0-34.0); MEAN CORPUSCULAR HGB CONC 32.3 G/dL (31.0-37.0); MEAN CORPUSCULAR VOLUME 98 fL (80-100); MONOCYTES # (AUTO) 0.5 K/uL (0.1-1.0); MONOCYTES % (AUTO) 3.3 % (2.0-9.0); NEUTROPHILS # (AUTO) 14.7 K/uL (1.8-7.7); PLATELET COUNT (AUTO) 345 K/uL (150-450); RED BLOOD CELL COUNT(AUTO) 4.19 MIL/uL (4.50-5.90); RED CELL DISTRIBUTION WIDTH 15.3 % (11.5-14.5); WHITE BLOOD COUNT (AUTO) 16.4 K/uL (4.5-11.0)
[2016-12-10 06:58] LABS: ALANINE AMINOTRANSFERASE 34 U/L (12-78); ALBUMIN 2.6 g/dL (3.4-5.0); ANION GAP 5 mmol/L (8-16); ASPARTATE AMINOTRANSFERASE 20 U/L (15-37); BILIRUBIN,TOTAL 0.2 mg/dL (0.1-1.0); CALCIUM, TOTAL 8.9 mg/dL (8.8-10.5); CARBON DIOXIDE 29 mmol/L (22-29); CHLORIDE 105 mmol/L (98-107); CREATININE 0.88 mg/dL (0.60-1.30); GLOMERULAR FILTR. RATE CALC > 60 mL/min (>60); POTASSIUM 4.3 mmol/L (3.5-5.1); SODIUM SERUM 139 mmol/L (136-145); UREA NITROGEN, BLOOD 23 mg/dL (7-18)
[2016-12-10 07:26] LABS: NEUTROPHILS % (AUTO) 89.5 % (40.0-70.0)
[2016-12-10 07:36] VITALS: BP 123/74
[2016-12-10] MEDS: MethylPREDNISolone SOD SUCC 125 MG/2 ML VIAL IVP SCH ×3 (08:31→23:57)
[2016-12-10] MEDS: AmLODIPine BESYLATE 5 MG TABLET PO SCH (08:32)
[2016-12-10] MEDS: PANTOPRAZOLE SODIUM 40 MG DR TABLET PO SCH (08:32)
[2016-12-10] MEDS: HEPARIN SODIUM,PORCINE 5,000 UNITS/ML VIAL SQ SCH ×2 (08:32→20:56)
[2016-12-10] MEDS: CARVEDILOL 12.5 MG TABLET PO SCH ×2 (08:32→20:56)
[2016-12-10] MEDS: ASPIRIN 81 MG EC TABLET PO SCH (08:32)
[2016-12-10] MEDS: LISINOPRIL 10 MG TABLET PO SCH (08:32)
[2016-12-10] MEDS: OxyCODONE HCL/ACETAMINOPHEN 5-325 MG TABLET PO PRN ×3 (08:42→20:23)
[2016-12-10] MEDS: BUDESONIDE 0.5 MG/2 ML NEB SOLUTION NEB SCH ×2 (08:57→21:10)
[2016-12-10 11:38] VITALS: BP 103/76
[2016-12-10 17:01] VITALS: BP 116/68
[2016-12-10 20:16] VITALS: BP 134/76
[2016-12-10] MEDS: PRAVASTATIN SODIUM 20 MG TABLET PO SCH (20:56)
[2016-12-10] MEDS: LEVOFLOXACIN 500 MG/D5% WATER 100 ML IV SCH (23:56)
[2016-12-11] VITALS (7 sets, daily range): BP systolic 116–128; BP diastolic 76–93
[2016-12-11] MEDS: NICOTINE 7 MG/24 HOUR PATCH TD SCH (08:16)
[2016-12-11] MEDS: CARVEDILOL 12.5 MG TABLET PO SCH ×2 (08:17→21:47)
[2016-12-11] MEDS: OxyCODONE HCL/ACETAMINOPHEN 5-325 MG TABLET PO PRN ×2 (08:17→19:24)
[2016-12-11] MEDS: ASPIRIN 81 MG EC TABLET PO SCH (08:17)
[2016-12-11] MEDS: LISINOPRIL 10 MG TABLET PO SCH (08:17)
[2016-12-11] MEDS: PANTOPRAZOLE SODIUM 40 MG DR TABLET PO SCH (08:17)
[2016-12-11] MEDS: AmLODIPine BESYLATE 5 MG TABLET PO SCH (08:17)
[2016-12-11] MEDS: MethylPREDNISolone SOD SUCC 125 MG/2 ML VIAL IVP SCH (08:18)
[2016-12-11] MEDS: HEPARIN SODIUM,PORCINE 5,000 UNITS/ML VIAL SQ SCH ×2 (08:18→21:47)
[2016-12-11] MEDS: BUDESONIDE 0.5 MG/2 ML NEB SOLUTION NEB SCH ×2 (08:53→21:03)
[2016-12-11] MEDS: ALBUTEROL SULFATE 2.5 MG/0.5 ML NEB SOLUTION NEB PRN (08:53)
[2016-12-11] MEDS: IPRATROPIUM BROMIDE 0.5 MG/2.5 ML NEB SOLUTION NEB PRN (08:54)
[2016-12-11] MEDS: MethylPREDNISolone SOD SUCC 40 MG/ML VIAL IVP SCH ×2 (15:36→23:29)
[2016-12-11] MEDS: PRAVASTATIN SODIUM 20 MG TABLET PO SCH (21:47)
[2016-12-11] MEDS: LEVOFLOXACIN 500 MG/D5% WATER 100 ML IV SCH (23:29)
[2016-12-12] VITALS (7 sets, daily range): BP systolic 101–133; BP diastolic 63–89
[2016-12-12] MEDS: HEPARIN SODIUM,PORCINE 5,000 UNITS/ML VIAL SQ SCH ×2 (08:44→20:49)
[2016-12-12] MEDS: MethylPREDNISolone SOD SUCC 40 MG/ML VIAL IVP SCH ×3 (08:44→23:14)
[2016-12-12] MEDS: LISINOPRIL 10 MG TABLET PO SCH (08:45)
[2016-12-12] MEDS: CARVEDILOL 12.5 MG TABLET PO SCH ×2 (08:45→20:49)
[2016-12-12] MEDS: AmLODIPine BESYLATE 5 MG TABLET PO SCH (08:45)
[2016-12-12] MEDS: NICOTINE 7 MG/24 HOUR PATCH TD SCH (08:45)
[2016-12-12] MEDS: ASPIRIN 81 MG EC TABLET PO SCH (08:45)
[2016-12-12] MEDS: PANTOPRAZOLE SODIUM 40 MG DR TABLET PO SCH (08:45)
[2016-12-12] MEDS: OxyCODONE HCL/ACETAMINOPHEN 5-325 MG TABLET PO PRN ×2 (08:51→20:49)
[2016-12-12] MEDS: BUDESONIDE 0.5 MG/2 ML NEB SOLUTION NEB SCH ×2 (10:16→19:19)
[2016-12-12] MEDS: IPRATROPIUM BROMIDE 0.5 MG/2.5 ML NEB SOLUTION NEB PRN (10:31)
[2016-12-12] MEDS: ALBUTEROL SULFATE 2.5 MG/0.5 ML NEB SOLUTION NEB PRN (10:31)
[2016-12-12] MEDS: ALBUTEROL SULFATE 2.5 MG/0.5 ML NEB SOLUTION NEB SCH ×3 (14:02→19:15)
[2016-12-12] MEDS: IPRATROPIUM BROMIDE 0.5 MG/2.5 ML NEB SOLUTION NEB SCH ×3 (14:02→19:14)
[2016-12-12] MEDS: PRAVASTATIN SODIUM 20 MG TABLET PO SCH (20:49)
[2016-12-12] MEDS: LEVOFLOXACIN 500 MG/D5% WATER 100 ML IV SCH (23:40)
[2016-12-13 03:41] VITALS: BP 124/74
[2016-12-13] MEDS: MethylPREDNISolone SOD SUCC 40 MG/ML VIAL IVP SCH ×2 (05:08→11:49)
[2016-12-13 07:07] VITALS: BP 134/86
[2016-12-13] MEDS: ASPIRIN 81 MG EC TABLET PO SCH (08:30)
[2016-12-13] MEDS: AmLODIPine BESYLATE 5 MG TABLET PO SCH (08:30)
[2016-12-13] MEDS: HEPARIN SODIUM,PORCINE 5,000 UNITS/ML VIAL SQ SCH ×2 (08:30→20:17)
[2016-12-13] MEDS: CARVEDILOL 12.5 MG TABLET PO SCH ×2 (08:30→20:18)
[2016-12-13] MEDS: OxyCODONE HCL/ACETAMINOPHEN 5-325 MG TABLET PO PRN ×2 (08:30→20:18)
[2016-12-13] MEDS: PANTOPRAZOLE SODIUM 40 MG DR TABLET PO SCH (08:30)
[2016-12-13] MEDS: LISINOPRIL 10 MG TABLET PO SCH (08:30)
[2016-12-13] MEDS: NICOTINE 7 MG/24 HOUR PATCH TD SCH (08:34)
[2016-12-13] MEDS ORDERED: PredniSONE 20 MG TABLET PO SCH (09:00)
[2016-12-13] MEDS: BUDESONIDE 0.5 MG/2 ML NEB SOLUTION NEB SCH ×2 (10:02→19:34)
[2016-12-13] MEDS: IPRATROPIUM BROMIDE 0.5 MG/2.5 ML NEB SOLUTION NEB SCH ×3 (10:02→19:34)
[2016-12-13] MEDS: ALBUTEROL SULFATE 2.5 MG/0.5 ML NEB SOLUTION NEB SCH ×3 (10:02→19:34)
[2016-12-13 10:39] VITALS: BP 121/74
[2016-12-13 14:38] VITALS: BP 108/67
[2016-12-13 19:20] VITALS: BP 122/69
[2016-12-13] MEDS: PRAVASTATIN SODIUM 20 MG TABLET PO SCH (20:19)
[2016-12-13] MEDS ORDERED: MethylPREDNISolone SOD SUCC 40 MG/ML VIAL IVP SCH (21:00)
[2016-12-13] MEDS: LEVOFLOXACIN 500 MG/D5% WATER 100 ML IV SCH (23:09)
[2016-12-13] MEDS ORDERED: SODIUM CHLORIDE 0.9% 250 ML IV ONE (23:12)
[2016-12-13 23:43] VITALS: BP 141/89
[2016-12-14 04:21] VITALS: BP 121/70
[2016-12-14] MEDS: ALBUTEROL SULFATE 2.5 MG/0.5 ML NEB SOLUTION NEB PRN (04:42)
[2016-12-14] MEDS: IPRATROPIUM BROMIDE 0.5 MG/2.5 ML NEB SOLUTION NEB PRN (04:42)
[2016-12-14] MEDS: OxyCODONE HCL/ACETAMINOPHEN 5-325 MG TABLET PO PRN ×3 (06:24→21:23)
[2016-12-14 06:53] LABS: BASOPHILS # (AUTO) 0.01 K/uL (0.00-0.20); EOSINOPHILS % (AUTO) 0 % (1.0-6.0); HEMOGLOBIN 14.5 g/dL (13.5-17.5); LYMPHOCYTES # (AUTO) 1.8 K/uL (1.0-4.8); LYMPHOCYTES % (AUTO) 6.1 % (22.0-44.0); MEAN CORPUSCULAR HEMOGLOBIN 32.5 pg (26.0-34.0); MEAN CORPUSCULAR HGB CONC 33.6 G/dL (31.0-37.0); MEAN CORPUSCULAR VOLUME 97 fL (80-100); MONOCYTES # (AUTO) 1.4 K/uL (0.1-1.0); MONOCYTES % (AUTO) 4.7 % (2.0-9.0); NEUTROPHILS # (AUTO) 26.1 K/uL (1.8-7.7); PLATELET COUNT (AUTO) 354 K/uL (150-450); RED BLOOD CELL COUNT(AUTO) 4.45 MIL/uL (4.50-5.90); RED CELL DISTRIBUTION WIDTH 15.7 % (11.5-14.5); WHITE BLOOD COUNT (AUTO) 29.3 K/uL (4.5-11.0)
[2016-12-14 06:56] LABS: NEUTROPHILS % (AUTO) 89.2 % (40.0-70.0); RBC MORPHOLOGY COMMENT NORMAL RBC MORPH
[2016-12-14 06:57] VITALS: BP 140/76
[2016-12-14 07:24] LABS: ALANINE AMINOTRANSFERASE 78 U/L (12-78); ALBUMIN 2.5 g/dL (3.4-5.0); ANION GAP 8 mmol/L (8-16); ASPARTATE AMINOTRANSFERASE 25 U/L (15-37); BILIRUBIN,TOTAL 0.2 mg/dL (0.1-1.0); CALCIUM, TOTAL 8.5 mg/dL (8.8-10.5); CARBON DIOXIDE 27 mmol/L (22-29); CHLORIDE 105 mmol/L (98-107); CREATININE 0.94 mg/dL (0.60-1.30); GLOMERULAR FILTR. RATE CALC > 60 mL/min (>60); POTASSIUM 3.9 mmol/L (3.5-5.1); SODIUM SERUM 140 mmol/L (136-145); TOTAL PROTEIN, SERUM 5.7 g/dL (6.4-8.2); UREA NITROGEN, BLOOD 21 mg/dL (7-18)
[2016-12-14] MEDS: LISINOPRIL 10 MG TABLET PO SCH (08:05)
[2016-12-14] MEDS: CARVEDILOL 12.5 MG TABLET PO SCH ×2 (08:05→21:17)
[2016-12-14] MEDS: PredniSONE 20 MG TABLET PO SCH (08:05)
[2016-12-14] MEDS: PANTOPRAZOLE SODIUM 40 MG DR TABLET PO SCH (08:05)
[2016-12-14] MEDS: AmLODIPine BESYLATE 5 MG TABLET PO SCH (08:05)
[2016-12-14] MEDS: ASPIRIN 81 MG EC TABLET PO SCH (08:05)
[2016-12-14] MEDS: HEPARIN SODIUM,PORCINE 5,000 UNITS/ML VIAL SQ SCH ×2 (08:06→21:17)
[2016-12-14] MEDS: NICOTINE 7 MG/24 HOUR PATCH TD SCH (08:06)
[2016-12-14] MEDS: IPRATROPIUM BROMIDE 0.5 MG/2.5 ML NEB SOLUTION NEB SCH ×4 (09:12→20:31)
[2016-12-14] MEDS: ALBUTEROL SULFATE 2.5 MG/0.5 ML NEB SOLUTION NEB SCH ×4 (09:12→20:31)
[2016-12-14] MEDS: BUDESONIDE 0.5 MG/2 ML NEB SOLUTION NEB SCH ×2 (09:21→20:31)
[2016-12-14 11:01] VITALS: BP 118/74
[2016-12-14] MEDS ORDERED: GuaiFENesin/CODEINE [SUGAR FREE] 200-20MG/10 ML SYRUP UDCUP PO PRN (14:15)
[2016-12-14 15:14] VITALS: BP 118/68
[2016-12-14 19:26] VITALS: BP 120/69
[2016-12-14] MEDS: PRAVASTATIN SODIUM 20 MG TABLET PO SCH (21:17)
[2016-12-14] MEDS: LEVOFLOXACIN 500 MG/D5% WATER 100 ML IV SCH (22:42)
[2016-12-15] VITALS: BP 123/71
[2016-12-15] MEDS: IPRATROPIUM BROMIDE 0.5 MG/2.5 ML NEB SOLUTION NEB PRN ×2 (03:17→13:12)
[2016-12-15] MEDS: ALBUTEROL SULFATE 2.5 MG/0.5 ML NEB SOLUTION NEB PRN ×2 (03:17→13:12)
[2016-12-15 04:13] VITALS: BP 119/68
[2016-12-15 07:12] LABS: BASOPHILS % (AUTO) 0.2 % (0.0-2.0); EOSINOPHILS % (AUTO) 0 % (1.0-6.0); HEMATOCRIT 43.3 % (41-53); HEMOGLOBIN 13.8 g/dL (13.5-17.5); LYMPHOCYTES # (AUTO) 3.4 K/uL (1.0-4.8); LYMPHOCYTES % (AUTO) 12.8 % (22.0-44.0); MEAN CORPUSCULAR HEMOGLOBIN 31.2 pg (26.0-34.0); MEAN CORPUSCULAR HGB CONC 31.9 G/dL (31.0-37.0); MEAN CORPUSCULAR VOLUME 98 fL (80-100); MONOCYTES # (AUTO) 0.5 K/uL (0.1-1.0); NEUTROPHILS # (AUTO) 22.7 K/uL (1.8-7.7); PLATELET COUNT (AUTO) 334 K/uL (150-450); RED BLOOD CELL COUNT(AUTO) 4.43 MIL/uL (4.50-5.90); RED CELL DISTRIBUTION WIDTH 15.5 % (11.5-14.5); WHITE BLOOD COUNT (AUTO) 26.7 K/uL (4.5-11.0)
[2016-12-15 07:25] VITALS: BP 131/77
[2016-12-15 07:37] LABS: ANION GAP 5 mmol/L (8-16); CALCIUM, TOTAL 8.6 mg/dL (8.8-10.5); CARBON DIOXIDE 31 mmol/L (22-29); CHLORIDE 103 mmol/L (98-107); CREATININE 1.21 mg/dL (0.60-1.30); GLOMERULAR FILTR. RATE CALC > 60 mL/min (>60); POTASSIUM 4.5 mmol/L (3.5-5.1); SODIUM SERUM 139 mmol/L (136-145); UREA NITROGEN, BLOOD 22 mg/dL (7-18)
[2016-12-15] MEDS: PredniSONE 20 MG TABLET PO SCH (08:02)
[2016-12-15] MEDS: ASPIRIN 81 MG EC TABLET PO SCH (08:02)
[2016-12-15] MEDS: LISINOPRIL 10 MG TABLET PO SCH (08:02)
[2016-12-15] MEDS: PANTOPRAZOLE SODIUM 40 MG DR TABLET PO SCH (08:02)
[2016-12-15] MEDS: CARVEDILOL 12.5 MG TABLET PO SCH (08:02)
[2016-12-15] MEDS: AmLODIPine BESYLATE 5 MG TABLET PO SCH (08:02)
[2016-12-15] MEDS: NICOTINE 7 MG/24 HOUR PATCH TD SCH (08:03)
[2016-12-15] MEDS: HEPARIN SODIUM,PORCINE 5,000 UNITS/ML VIAL SQ SCH (08:03)
[2016-12-15] MEDS: BUDESONIDE 0.5 MG/2 ML NEB SOLUTION NEB SCH (09:34)
[2016-12-15] MEDS: ALBUTEROL SULFATE 2.5 MG/0.5 ML NEB SOLUTION NEB SCH ×2 (09:34→13:09)
[2016-12-15] MEDS: IPRATROPIUM BROMIDE 0.5 MG/2.5 ML NEB SOLUTION NEB SCH ×2 (09:35→13:09)
[2016-12-15 09:55] LABS: RBC MORPHOLOGY COMMENT NORMAL RBC MORPH
[2016-12-15 11:43] VITALS: BP 116/70
[2016-12-15] MEDS: OxyCODONE HCL/ACETAMINOPHEN 5-325 MG TABLET PO PRN (13:23)
[2016-12-15] MEDS ORDERED: AMLO-511 PO (14:09)
[2016-12-15] MEDS ORDERED: PANT40TA25 PO (14:10)
[2016-12-15] MEDS ORDERED: BENZ1LOZ68 PO (14:12)
[2016-12-15] MEDS ORDERED: GUAI5SYR4 PO (14:13)
[2016-12-15] MEDS ORDERED: IPRNEB IH ×2 (14:13→16:47)
[2016-12-15 16:06] VITALS: BP 130/77
[2016-12-15] MEDS ORDERED: PRED20 PO ×2 (16:42→16:43)
[2016-12-15] MEDS ORDERED: PRED10 PO (16:43)
[2016-12-15] MEDS ORDERED: AUD NEB (16:46)
== END 2016-12-15 17:15 | disposition home or self-care (01) | DRG 871 ==
LOC: EMS 19:31 → ICU 21:06 → 5S 12-09 14:25 → 5N 12-12 05:40
PROVIDERS: ADMIT Internal Medicine; ATTEND Internal Medicine
PROC: 5A09457 Assistance with Respiratory Ventilation, 24-96 Consecutive Hours, Continuous Positive Airway Pressure (ICD-10-PCS; principal; 2016-12-08)
DX: A41.9 Sepsis, unspecified organism (principal); J96.01 Acute respiratory failure with hypoxia; J96.02 Acute respiratory failure with hypercapnia; J18.9 Pneumonia, unspecified organism; J44.1 Chronic obstructive pulmonary disease with (acute) exacerbation; J44.0 Chronic obstructive pulmonary disease with (acute) lower respiratory infection; E78.5 Hyperlipidemia, unspecified; K59.00 Constipation, unspecified; F12.10 Cannabis abuse, uncomplicated; E03.9 Hypothyroidism, unspecified; J20.9 Acute bronchitis, unspecified; E78.00 Pure hypercholesterolemia, unspecified; F17.210 Nicotine dependence, cigarettes, uncomplicated; F10.10 Alcohol abuse, uncomplicated; I11.0 Hypertensive heart disease with heart failure; I73.9 Peripheral vascular disease, unspecified; K59.09 Other constipation; Z90.49 Acquired absence of other specified parts of digestive tract; Z88.0 Allergy status to penicillin; Z98.890 Other specified postprocedural states; Z71.6 Tobacco abuse counseling; Z71.51 Drug abuse counseling and surveillance of drug abuser; Z79.51 Long term (current) use of inhaled steroids; Z79.82 Long term (current) use of aspirin; Z79.899 Other long term (current) drug therapy; Z83.6 Family history of other diseases of the respiratory system
CPT/HCPCS: 82805; 82962; 83605; 83735; 84100; 85379; 87040; 87070; 87081; 87205; 87804; 93005; 94640; 94644; 94645; 94660; 96374; 96375; 99291; G0480; J1644; J1956; J2060; J2920; J2930; J3535; J7050

== ENCOUNTER 2016-12-20 12:44 | Emergency (ER) | payer MEDICARE, OTHER ==
[~2016-12-20] VITALS: Ht 162.6 cm; Wt 73.6 kg
[~2016-12-20 12:44] MED LIST changes: +AMLO-511 PO; -AMLO10TA55 PO; +AUD NEB; +BENZ1LOZ68 PO; +GUAI5SYR4 PO; +IPRNEB IH; -OMEP20 PO; +PANT40TA25 PO; +PRED10 PO
[2016-12-20] MEDS ORDERED: ALBUTEROL SULFATE 2.5 MG/0.5 ML NEB SOLUTION NEB ONE (14:15)
[2016-12-20] MEDS ORDERED: IPRATROPIUM BROMIDE 0.5 MG/2.5 ML NEB SOLUTION NEB ONE (14:15)
[2016-12-20 14:35] LABS: BASOPHILS # (AUTO) 0.04 K/uL (0.00-0.20); BASOPHILS % (AUTO) 0.3 % (0.0-2.0); EOSINOPHILS % (AUTO) 0 % (1.0-6.0); HEMATOCRIT 43.4 % (41-53); HEMOGLOBIN 14.4 g/dL (13.5-17.5); LYMPHOCYTES # (AUTO) 0.7 K/uL (1.0-4.8); MEAN CORPUSCULAR HEMOGLOBIN 32.1 pg (26.0-34.0); MEAN CORPUSCULAR HGB CONC 33.2 G/dL (31.0-37.0); MEAN CORPUSCULAR VOLUME 97 fL (80-100); MONOCYTES # (AUTO) 0.3 K/uL (0.1-1.0); MONOCYTES % (AUTO) 2.1 % (2.0-9.0); NEUTROPHILS # (AUTO) 11.9 K/uL (1.8-7.7); PLATELET COUNT (AUTO) 248 K/uL (150-450); RED BLOOD CELL COUNT(AUTO) 4.49 MIL/uL (4.50-5.90); RED CELL DISTRIBUTION WIDTH 16.4 % (11.5-14.5); WHITE BLOOD COUNT (AUTO) 12.8 K/uL (4.5-11.0)
[2016-12-20 14:38] LABS: NEUTROPHILS % (AUTO) 92.6 % (40.0-70.0)
[2016-12-20 14:48] LABS: ANION GAP 6 mmol/L (8-16); CALCIUM, TOTAL 8.6 mg/dL (8.8-10.5); CARBON DIOXIDE 30 mmol/L (22-29); CHLORIDE 106 mmol/L (98-107); CREATININE 1.03 mg/dL (0.60-1.30); GLOMERULAR FILTR. RATE CALC > 60 mL/min (>60); SODIUM SERUM 142 mmol/L (136-145); UREA NITROGEN, BLOOD 19 mg/dL (7-18)
[2016-12-20 15:05] LABS: B-TYPE NATRIURETIC PEPTIDE 24 pg/mL (0-100)
[2016-12-20 15:12] LABS: ALANINE AMINOTRANSFERASE 65 U/L (12-78); ALBUMIN 2.8 g/dL (3.4-5.0); ASPARTATE AMINOTRANSFERASE 24 U/L (15-37); BILIRUBIN,TOTAL 0.2 mg/dL (0.1-1.0); CREATINE KINASE MB 3.8 ng/mL (0-5); CREATINE KINASE, TOTAL 144 U/L (39-308); TOTAL PROTEIN, SERUM 5.8 g/dL (6.4-8.2)
[2016-12-20 16:09] LABS: APPEARANCE,URINE CLEAR (CLEAR); GLUCOSE, URINE (UA) 100 mg/dL (NEGATIVE); KETONES,URINE NEGATIVE (NEGATIVE); LEUKOCYTE ESTERASE ,URINE NEGATIVE (NEGATIVE); OCCULT BLOOD,URINE NEGATIVE (NEGATIVE); PROTEIN,URINE TRACE (NEGATIVE)
[2016-12-20 16:19] LABS: RBC,URINE None Seen /HPF (0-2); WBC,URINE 0-2 /HPF (0-5)
[2016-12-20 17:58] VITALS: BP 127/76
== END 2016-12-20 18:30 | disposition home or self-care (01) ==
LOC: EMS 12:46
DX: R60.0 Localized edema (principal); E78.00 Pure hypercholesterolemia, unspecified; I10 Essential (primary) hypertension; J45.909 Unspecified asthma, uncomplicated; J44.9 Chronic obstructive pulmonary disease, unspecified; F12.90 Cannabis use, unspecified, uncomplicated; Z79.82 Long term (current) use of aspirin; Z88.0 Allergy status to penicillin
CPT/HCPCS: 51702; 71020; 93005; 93041; 93971; 94640; 99285

== ENCOUNTER 2016-12-22 03:05 | Inpatient (IN) | payer MEDICARE, OTHER ==
[~2016-12-22] VITALS: Ht 162.6 cm; Wt 78.8 kg
[2016-12-22] MEDS ORDERED: FLUT1BLS PO (03:13)
[2016-12-22] MEDS ORDERED: AMLO10TA55 PO (03:13)
[2016-12-22] MEDS ORDERED: OXYC-522 PO (03:13)
[2016-12-22] MEDS ORDERED: UMEC62.5 PO (03:13)
[2016-12-22] MEDS ORDERED: ATOR40TA71 PO (03:13)
[2016-12-22] MEDS ORDERED: 0.9% SODIUM CHLORIDE 15 ML NEB SOLUTION NEB ONE (03:18)
[2016-12-22] MEDS ORDERED: IPRATROPIUM BROMIDE 0.5 MG/2.5 ML NEB SOLUTION NEB ONE ×2 (03:18→03:30)
[2016-12-22] MEDS ORDERED: MethylPREDNISolone SOD SUCC 125 MG/2 ML VIAL IVP ONE (03:30)
[2016-12-22] MEDS ORDERED: ALBUTEROL SULFATE 5 MG/ML 20 ML NEB SOLN [BULK] NEB ONE (03:30)
[2016-12-22 03:53] LABS: ABG A-A DIFF O2 118.5 mmHg (10-20.0); ABG BASE EXCESS 7.4 mmol/L (-2.0-3.0); ABG HCO3 29.4 mmol/L (22.0-26.0); ABG OXYHEMOGLOBIN 97.2 % (94.0-100.0); ABG PCO2 57 mmHg (35-45); ABG PH 7.372 (7.35-7.450); TEMPERATURE, FAHRENHEIT, BG 97.4 FAHREN (96.0-98.6)
[2016-12-22 03:55] LABS: ALLEN TEST, BLOOD GAS Positive; IPAP, BG 18 cm H2O
[2016-12-22 04:07] LABS: BASOPHILS # (AUTO) 0.07 K/uL (0.00-0.20); BASOPHILS % (AUTO) 0.5 % (0.0-2.0); EOSINOPHILS # (AUTO) 0.01 K/uL (0.00-0.70); EOSINOPHILS % (AUTO) 0.07 % (1.0-6.0); HEMATOCRIT 45.3 % (41-53); HEMOGLOBIN 14.8 g/dL (13.5-17.5); LYMPHOCYTES # (AUTO) 2.7 K/uL (1.0-4.8); LYMPHOCYTES % (AUTO) 20.7 % (22.0-44.0); MEAN CORPUSCULAR HEMOGLOBIN 31.9 pg (26.0-34.0); MEAN CORPUSCULAR HGB CONC 32.7 G/dL (31.0-37.0); MEAN CORPUSCULAR VOLUME 98 fL (80-100); MONOCYTES # (AUTO) 0.9 K/uL (0.1-1.0); MONOCYTES % (AUTO) 6.8 % (2.0-9.0); NEUTROPHILS # (AUTO) 9.3 K/uL (1.8-7.7); NEUTROPHILS % (AUTO) 71.9 % (40.0-70.0); PLATELET COUNT (AUTO) 245 K/uL (150-450); RED BLOOD CELL COUNT(AUTO) 4.65 MIL/uL (4.50-5.90); RED CELL DISTRIBUTION WIDTH 16.4 % (11.5-14.5)
[2016-12-22 04:16] LABS: ANION GAP 4 mmol/L (8-16); CALCIUM, TOTAL 8.6 mg/dL (8.8-10.5); CARBON DIOXIDE 34 mmol/L (22-29); CHLORIDE 104 mmol/L (98-107); CREATININE 0.99 mg/dL (0.60-1.30); GLOMERULAR FILTR. RATE CALC > 60 mL/min (>60); POTASSIUM 3.9 mmol/L (3.5-5.1); SODIUM SERUM 142 mmol/L (136-145); UREA NITROGEN, BLOOD 19 mg/dL (7-18)
[2016-12-22 04:41] LABS: ALANINE AMINOTRANSFERASE 64 U/L (12-78); ASPARTATE AMINOTRANSFERASE 25 U/L (15-37); BILIRUBIN,TOTAL 0.3 mg/dL (0.1-1.0); CREATINE KINASE MB 3.8 ng/mL (0-5); CREATINE KINASE, TOTAL 146 U/L (39-308); TOTAL PROTEIN, SERUM 6.1 g/dL (6.4-8.2)
[2016-12-22 04:54] LABS: B-TYPE NATRIURETIC PEPTIDE 11 pg/mL (0-100)
[2016-12-22] MEDS ORDERED: ACETAMINOPHEN 325 MG TABLET PO PRN (06:00)
[2016-12-22] MEDS ORDERED: MAGNESIUM HYDROXIDE SUSPENSION 30 ML UDCUP PO PRN (06:00)
[2016-12-22] MEDS ORDERED: ONDANSETRON HCL 4 MG/2 ML VIAL IVP PRN (06:00)
[2016-12-22] MEDS ORDERED: BISACODYL 10 MG RECTAL RECTAL SUPPOSITORY PR PRN (06:00)
[2016-12-22] MEDS ORDERED: ZOLPIDEM TARTRATE 5 MG TABLET PO PRN (06:00)
[2016-12-22 06:20] VITALS: BP 124/89
[2016-12-22] MEDS: IPRATROPIUM BROMIDE 0.5 MG/2.5 ML NEB SOLUTION NEB SCH ×3 (07:17→20:34)
[2016-12-22] MEDS: ALBUTEROL SULFATE 2.5 MG/0.5 ML NEB SOLUTION NEB SCH ×3 (07:17→20:34)
[2016-12-22 08:00] VITALS: BP 118/77
[2016-12-22] MEDS ORDERED: FLUTICASONE/VILANTEROL 200-25 MCG/INH INHALER [14] IH SCH (09:00)
[2016-12-22] MEDS: PANTOPRAZOLE SODIUM 40 MG DR TABLET PO SCH (09:13)
[2016-12-22] MEDS: OxyCODONE HCL/ACETAMINOPHEN 5-325 MG TABLET PO PRN ×3 (09:14→20:37)
[2016-12-22] MEDS: MethylPREDNISolone SOD SUCC 125 MG/2 ML VIAL IVP SCH ×4 (09:14→20:35)
[2016-12-22] MEDS: ASPIRIN 81 MG EC TABLET PO SCH (09:14)
[2016-12-22] MEDS: HEPARIN SODIUM,PORCINE 5,000 UNITS/ML VIAL SQ SCH ×2 (09:14→20:35)
[2016-12-22] MEDS: AmLODIPine BESYLATE 10 MG TABLET PO SCH (09:14)
[2016-12-22] MEDS: ATORVASTATIN CALCIUM 40 MG TABLET PO SCH (10:19)
[2016-12-22 10:47] LABS: ABG A-A DIFF O2 118.2 mmHg (10-20.0); ABG BASE EXCESS -0.3 mmol/L (-2.0-3.0); ABG HCO3 24.1 mmol/L (22.0-26.0); ABG OXYHEMOGLOBIN 90.6 % (94.0-100.0); ABG PCO2 41 mmHg (35-45); ABG PH 7.399 (7.35-7.450); TEMPERATURE, FAHRENHEIT, BG 97.8 FAHREN (96.0-98.6)
[2016-12-22 10:48] LABS: ALLEN TEST, BLOOD GAS Positive
[2016-12-22 12:00] VITALS: BP 144/91
[2016-12-22 16:00] VITALS: BP 124/78
[2016-12-22] MEDS ORDERED: 0.9% SODIUM CHLORIDE 10 ML SYRINGE IVP PRN (17:00)
[2016-12-22 19:10] LABS: APPEARANCE,URINE CLEAR (CLEAR); GLUCOSE, URINE (UA) 500 mg/dL (NEGATIVE); KETONES,URINE NEGATIVE (NEGATIVE); LEUKOCYTE ESTERASE ,URINE NEGATIVE (NEGATIVE); OCCULT BLOOD,URINE NEGATIVE (NEGATIVE); PROTEIN,URINE TRACE (NEGATIVE)
[2016-12-22 19:20] LABS: ADD UA MICROSCOPIC YES
[2016-12-22 19:39] LABS: RBC,URINE None Seen /HPF (0-2); SQUAMOUS EPITHELIAL CELL,UR Rare /LPF (None Seen); WBC,URINE 0-2 /HPF (0-5)
[2016-12-22] MEDS: BUDESONIDE 0.5 MG/2 ML NEB SOLUTION NEB SCH (20:34)
[2016-12-22 20:40] VITALS: BP 128/65
[2016-12-22 23:53] VITALS: BP 116/75
[2016-12-23] MEDS: GuaiFENesin/D-METHORPHAN/PHENYLEPH 5 ML LIQUID ORAL.SYG PO PRN (02:15)
[2016-12-23] MEDS: ALBUTEROL SULFATE 2.5 MG/0.5 ML NEB SOLUTION NEB SCH ×4 (02:39→20:24)
[2016-12-23] MEDS: IPRATROPIUM BROMIDE 0.5 MG/2.5 ML NEB SOLUTION NEB SCH ×4 (02:39→20:24)
[2016-12-23 04:33] VITALS: BP 143/84
[2016-12-23 06:06] LABS: EOSINOPHILS % (AUTO) 0.01 % (1.0-6.0); HEMATOCRIT 39.9 % (41-53); HEMOGLOBIN 13.3 g/dL (13.5-17.5); LYMPHOCYTES # (AUTO) 1.1 K/uL (1.0-4.8); LYMPHOCYTES % (AUTO) 7.2 % (22.0-44.0); MEAN CORPUSCULAR HEMOGLOBIN 32.5 pg (26.0-34.0); MEAN CORPUSCULAR HGB CONC 33.4 G/dL (31.0-37.0); MEAN CORPUSCULAR VOLUME 97 fL (80-100); MONOCYTES # (AUTO) 0.3 K/uL (0.1-1.0); MONOCYTES % (AUTO) 2.1 % (2.0-9.0); NEUTROPHILS # (AUTO) 14.1 K/uL (1.8-7.7); PLATELET COUNT (AUTO) 219 K/uL (150-450); RED CELL DISTRIBUTION WIDTH 15.9 % (11.5-14.5); WHITE BLOOD COUNT (AUTO) 15.5 K/uL (4.5-11.0)
[2016-12-23 06:37] LABS: ALANINE AMINOTRANSFERASE 60 U/L (12-78); ALBUMIN 2.5 g/dL (3.4-5.0); ANION GAP 8 mmol/L (8-16); ASPARTATE AMINOTRANSFERASE 21 U/L (15-37); BILIRUBIN,TOTAL 0.3 mg/dL (0.1-1.0); CARBON DIOXIDE 30 mmol/L (22-29); CHLORIDE 105 mmol/L (98-107); CHOL/HDL RATIO 1.9 (4.2-7.3); CREATININE 0.86 mg/dL (0.60-1.30); GLOMERULAR FILTR. RATE CALC > 60 mL/min (>60); PHOSPHORUS 3.1 mg/dL (2.5-4.9); POTASSIUM 4.3 mmol/L (3.5-5.1); SODIUM SERUM 143 mmol/L (136-145); THYROID STIMULATING HORMONE 0.13 uIU/mL (0.36-3.74); TOTAL PROTEIN, SERUM 5.6 g/dL (6.4-8.2); UREA NITROGEN, BLOOD 20 mg/dL (7-18)
[2016-12-23 06:58] LABS: NEUTROPHILS % (AUTO) 90.7 % (40.0-70.0); RBC MORPHOLOGY COMMENT NORMAL RBC MORPH
[2016-12-23 07:55] VITALS: BP 150/87
[2016-12-23] MEDS: PANTOPRAZOLE SODIUM 40 MG DR TABLET PO SCH (07:56)
[2016-12-23] MEDS: ASPIRIN 81 MG EC TABLET PO SCH (07:56)
[2016-12-23] MEDS: ATORVASTATIN CALCIUM 40 MG TABLET PO SCH (07:56)
[2016-12-23] MEDS: HEPARIN SODIUM,PORCINE 5,000 UNITS/ML VIAL SQ SCH ×2 (07:56→19:56)
[2016-12-23] MEDS: MethylPREDNISolone SOD SUCC 125 MG/2 ML VIAL IVP SCH ×4 (07:56→19:56)
[2016-12-23] MEDS: AmLODIPine BESYLATE 10 MG TABLET PO SCH (07:57)
[2016-12-23] MEDS: BUDESONIDE 0.5 MG/2 ML NEB SOLUTION NEB SCH ×2 (09:15→20:24)
[2016-12-23 12:00] VITALS: BP 152/80
[2016-12-23 15:43] VITALS: BP 107/66
[2016-12-23] MEDS: OxyCODONE HCL/ACETAMINOPHEN 5-325 MG TABLET PO PRN ×2 (15:46→19:56)
[2016-12-23] MEDS ORDERED: BARIUM SULFATE 0.1% SUSPENSION 450 ML BOTTLE ONE (17:28)
[2016-12-23] MEDS ORDERED: SODIUM CHLORIDE 0.9% 100 ML ONE (18:42)
[2016-12-23] MEDS ORDERED: IOVERSOL 350 MG/ML 100 ML VIAL ONE (18:42)
[2016-12-23 19:27] VITALS: BP 127/66
[2016-12-23 19:38] VITALS: BP 134/83
[2016-12-24 00:43] VITALS: BP 134/80
[2016-12-24] MEDS: GuaiFENesin/D-METHORPHAN/PHENYLEPH 5 ML LIQUID ORAL.SYG PO PRN ×2 (00:46→08:37)
[2016-12-24] MEDS: OxyCODONE HCL/ACETAMINOPHEN 5-325 MG TABLET PO PRN ×2 (00:46→08:37)
[2016-12-24] MEDS: BENZOCAINE/MENTHOL LOZENGE [8 LOZENGES/PACKET] MM PRN ×2 (00:47→08:38)
[2016-12-24] MEDS: ALBUTEROL SULFATE 2.5 MG/0.5 ML NEB SOLUTION NEB SCH ×2 (02:23→09:27)
[2016-12-24] MEDS: IPRATROPIUM BROMIDE 0.5 MG/2.5 ML NEB SOLUTION NEB SCH ×2 (02:24→09:28)
[2016-12-24 04:45] VITALS: BP 129/83
[2016-12-24 07:28] LABS: EOSINOPHILS % (AUTO) 0 % (1.0-6.0); HEMATOCRIT 43.9 % (41-53); HEMOGLOBIN 13.9 g/dL (13.5-17.5); LYMPHOCYTES # (AUTO) 0.9 K/uL (1.0-4.8); LYMPHOCYTES % (AUTO) 4.5 % (22.0-44.0); MEAN CORPUSCULAR HEMOGLOBIN 31.1 pg (26.0-34.0); MEAN CORPUSCULAR HGB CONC 31.6 G/dL (31.0-37.0); MEAN CORPUSCULAR VOLUME 98 fL (80-100); MONOCYTES # (AUTO) 1.1 K/uL (0.1-1.0); MONOCYTES % (AUTO) 5.5 % (2.0-9.0); NEUTROPHILS # (AUTO) 18.6 K/uL (1.8-7.7); PLATELET COUNT (AUTO) 233 K/uL (150-450); RED BLOOD CELL COUNT(AUTO) 4.46 MIL/uL (4.50-5.90); RED CELL DISTRIBUTION WIDTH 15.9 % (11.5-14.5); WHITE BLOOD COUNT (AUTO) 20.7 K/uL (4.5-11.0)
[2016-12-24 07:37] LABS: ANION GAP 3 mmol/L (8-16); CALCIUM, TOTAL 9.2 mg/dL (8.8-10.5); CARBON DIOXIDE 34 mmol/L (22-29); CHLORIDE 104 mmol/L (98-107); CREATININE 0.94 mg/dL (0.60-1.30); GLOMERULAR FILTR. RATE CALC > 60 mL/min (>60); POTASSIUM 5.1 mmol/L (3.5-5.1); SODIUM SERUM 141 mmol/L (136-145); UREA NITROGEN, BLOOD 19 mg/dL (7-18)
[2016-12-24 07:43] LABS: ALANINE AMINOTRANSFERASE 65 U/L (12-78); ALBUMIN 2.9 g/dL (3.4-5.0); ASPARTATE AMINOTRANSFERASE 26 U/L (15-37); BILIRUBIN,TOTAL 0.2 mg/dL (0.1-1.0)
[2016-12-24] MEDS ORDERED: PredniSONE 20 MG TABLET PO ONE (07:45)
[2016-12-24 07:46] VITALS: BP 93/63
[2016-12-24 07:50] VITALS: BP 138/97
[2016-12-24] MEDS: HEPARIN SODIUM,PORCINE 5,000 UNITS/ML VIAL SQ SCH (08:35)
[2016-12-24] MEDS: MethylPREDNISolone SOD SUCC 125 MG/2 ML VIAL IVP SCH (08:36)
[2016-12-24] MEDS: AmLODIPine BESYLATE 10 MG TABLET PO SCH (08:36)
[2016-12-24] MEDS: ASPIRIN 81 MG EC TABLET PO SCH (08:36)
[2016-12-24] MEDS: ATORVASTATIN CALCIUM 40 MG TABLET PO SCH (08:36)
[2016-12-24] MEDS: PANTOPRAZOLE SODIUM 40 MG DR TABLET PO SCH (08:39)
[2016-12-24] MEDS: BUDESONIDE 0.5 MG/2 ML NEB SOLUTION NEB SCH (09:27)
[2016-12-24] MEDS ORDERED: PRED20 PO ×3 (09:30→09:33)
== END 2016-12-24 11:00 | disposition home or self-care (01) | DRG 189 ==
LOC: EMS 03:06 → ICU 05:28 → 6N 20:21
PROVIDERS: ADMIT Internal Medicine; ATTEND Internal Medicine
PROC: 5A09357 Assistance with Respiratory Ventilation, Less than 24 Consecutive Hours, Continuous Positive Airway Pressure (ICD-10-PCS; principal; 2016-12-22)
DX: J96.01 Acute respiratory failure with hypoxia (principal); E44.0 Moderate protein-calorie malnutrition; J44.1 Chronic obstructive pulmonary disease with (acute) exacerbation; F10.10 Alcohol abuse, uncomplicated; F17.210 Nicotine dependence, cigarettes, uncomplicated; I10 Essential (primary) hypertension; E78.5 Hyperlipidemia, unspecified; K59.00 Constipation, unspecified; F12.10 Cannabis abuse, uncomplicated; E21.3 Hyperparathyroidism, unspecified; E03.9 Hypothyroidism, unspecified; E78.00 Pure hypercholesterolemia, unspecified; G89.29 Other chronic pain; I73.9 Peripheral vascular disease, unspecified; J45.909 Unspecified asthma, uncomplicated; Z98.890 Other specified postprocedural states; J96.02 Acute respiratory failure with hypercapnia; Z90.49 Acquired absence of other specified parts of digestive tract; Z88.0 Allergy status to penicillin; Z79.82 Long term (current) use of aspirin; Z79.1 Long term (current) use of non-steroidal anti-inflammatories (NSAID); Z79.51 Long term (current) use of inhaled steroids; Z79.899 Other long term (current) drug therapy; Z71.6 Tobacco abuse counseling; Z71.51 Drug abuse counseling and surveillance of drug abuser; Z71.41 Alcohol abuse counseling and surveillance of alcoholic; Z68.29 Body mass index [BMI] 29.0-29.9, adult; Z83.6 Family history of other diseases of the respiratory system
CPT/HCPCS: 71260; 80307; 82306; 82805; 83735; 84100; 84443; 87040; 87081; 93005; 94640; 94644; 94660; 96374; 99291; J1644; J2930; J7050

== ENCOUNTER 2017-01-07 02:53 | Inpatient (IN) | payer MEDICARE, OTHER ==
[~2017-01-07] VITALS: Ht 167.6 cm; Wt 76.4 kg
[~2017-01-07 02:53] MED LIST changes: -AMLO-511 PO; +AMLO10TA55 PO; +ATOR40TA71 PO; -BECL8.7A6 IH; -BENZ1LOZ68 PO; -CARV12 PO; -DOCU-119 PO; +FLUT1BLS PO; -GUAI5SYR4 PO; -GUAIF600 PO; -LISI-661 PO; -MULT-1238 PO; -PANT40TA25 PO; -PRAV20TA4 PO; -PRED10 PO; +UMEC62.5 PO
[2017-01-07] MEDS ORDERED: MethylPREDNISolone SOD SUCC 125 MG/2 ML VIAL IVP ONE (03:30)
[2017-01-07] MEDS ORDERED: IPRATROPIUM BROMIDE 0.5 MG/2.5 ML NEB SOLUTION NEB ONE ×3 (03:30→05:45)
[2017-01-07] MEDS ORDERED: ALBUTEROL SULFATE 5 MG/ML 20 ML NEB SOLN [BULK] NEB ONE ×3 (03:30→05:45)
[2017-01-07] MEDS ORDERED: 0.9% SODIUM CHLORIDE 15 ML NEB SOLUTION NEB ONE ×2 (03:41→05:42)
[2017-01-07] MEDS ORDERED: ONDANSETRON HCL 4 MG/2 ML VIAL IVP PRN (05:45)
[2017-01-07] MEDS ORDERED: 0.9% SODIUM CHLORIDE 10 ML SYRINGE IVP PRN (05:45)
[2017-01-07] MEDS ORDERED: ACETAMINOPHEN 325 MG TABLET PO PRN ×2 (05:45→08:00)
[2017-01-07 06:08] LABS: ANION GAP 11 mmol/L (8-16); CALCIUM, TOTAL 8.9 mg/dL (8.8-10.5); CARBON DIOXIDE 29 mmol/L (22-29); CHLORIDE 105 mmol/L (98-107); CREATININE 0.94 mg/dL (0.60-1.30); GLOMERULAR FILTR. RATE CALC > 60 mL/min (>60); POTASSIUM 3.6 mmol/L (3.5-5.1); SODIUM SERUM 145 mmol/L (136-145); UREA NITROGEN, BLOOD 10 mg/dL (7-18)
[2017-01-07 06:09] LABS: BASOPHILS % (AUTO) 0.4 % (0.0-2.0); HEMATOCRIT 46.9 % (41-53); HEMOGLOBIN 14.8 g/dL (13.5-17.5); LYMPHOCYTES # (AUTO) 2.3 K/uL (1.0-4.8); LYMPHOCYTES % (AUTO) 25.2 % (22.0-44.0); MEAN CORPUSCULAR HEMOGLOBIN 30.9 pg (26.0-34.0); MEAN CORPUSCULAR HGB CONC 31.5 G/dL (31.0-37.0); MEAN CORPUSCULAR VOLUME 98 fL (80-100); MONOCYTES # (AUTO) 0.9 K/uL (0.1-1.0); MONOCYTES % (AUTO) 10.1 % (2.0-9.0); NEUTROPHILS # (AUTO) 5.9 K/uL (1.8-7.7); NEUTROPHILS % (AUTO) 63.3 % (40.0-70.0); PLATELET COUNT (AUTO) 297 K/uL (150-450); RED BLOOD CELL COUNT(AUTO) 4.79 MIL/uL (4.50-5.90); RED CELL DISTRIBUTION WIDTH 16.2 % (11.5-14.5); WHITE BLOOD COUNT (AUTO) 9.3 K/uL (4.5-11.0)
[2017-01-07 06:14] LABS: ALANINE AMINOTRANSFERASE 60 U/L (12-78); ALBUMIN 3.4 g/dL (3.4-5.0); ASPARTATE AMINOTRANSFERASE 38 U/L (15-37); BILIRUBIN,TOTAL 0.4 mg/dL (0.1-1.0); TOTAL PROTEIN, SERUM 7.1 g/dL (6.4-8.2)
[2017-01-07 07:59] VITALS: BP 124/76
[2017-01-07] MEDS ORDERED: MAGNESIUM HYDROXIDE SUSPENSION 30 ML UDCUP PO PRN (08:00)
[2017-01-07] MEDS: PANTOPRAZOLE SODIUM 40 MG DR TABLET PO SCH (09:37)
[2017-01-07] MEDS: AmLODIPine BESYLATE 10 MG TABLET PO SCH (09:37)
[2017-01-07] MEDS: HEPARIN SODIUM,PORCINE 5,000 UNITS/ML VIAL SQ SCH ×3 (09:37→23:34)
[2017-01-07] MEDS: OxyCODONE HCL/ACETAMINOPHEN 5-325 MG TABLET PO PRN ×3 (09:37→23:34)
[2017-01-07] MEDS: DOCUSATE SODIUM 100 MG CAPSULE PO SCH ×2 (09:37→20:26)
[2017-01-07] MEDS: IPRATROPIUM BROMIDE 0.5 MG/2.5 ML NEB SOLUTION NEB SCH ×4 (10:59→22:39)
[2017-01-07] MEDS: ALBUTEROL SULFATE 2.5 MG/0.5 ML NEB SOLUTION NEB SCH ×4 (11:00→22:38)
[2017-01-07 11:18] VITALS: BP 139/78
[2017-01-07] MEDS: MethylPREDNISolone SOD SUCC 125 MG/2 ML VIAL IVP SCH ×3 (11:22→23:33)
[2017-01-07 15:03] VITALS: BP 122/78
[2017-01-07 19:09] VITALS: BP 133/91
[2017-01-07 23:27] VITALS: BP 125/79
[2017-01-08] MEDS: IPRATROPIUM BROMIDE 0.5 MG/2.5 ML NEB SOLUTION NEB SCH ×6 (03:23→23:35)
[2017-01-08] MEDS: ALBUTEROL SULFATE 2.5 MG/0.5 ML NEB SOLUTION NEB SCH ×6 (03:23→23:35)
[2017-01-08] MEDS: MethylPREDNISolone SOD SUCC 125 MG/2 ML VIAL IVP SCH ×4 (05:22→23:46)
[2017-01-08 07:26] VITALS: BP 125/80
[2017-01-08] MEDS: PANTOPRAZOLE SODIUM 40 MG DR TABLET PO SCH (08:02)
[2017-01-08] MEDS: DOCUSATE SODIUM 100 MG CAPSULE PO SCH ×2 (08:02→20:27)
[2017-01-08] MEDS: AmLODIPine BESYLATE 10 MG TABLET PO SCH (08:02)
[2017-01-08] MEDS: HEPARIN SODIUM,PORCINE 5,000 UNITS/ML VIAL SQ SCH ×3 (08:03→23:46)
[2017-01-08] MEDS: OxyCODONE HCL/ACETAMINOPHEN 5-325 MG TABLET PO PRN ×3 (08:03→19:35)
[2017-01-08 11:22] VITALS: BP 128/81
[2017-01-08 15:57] VITALS: BP 130/82
[2017-01-08 19:47] VITALS: BP 145/81
[2017-01-08 23:43] VITALS: BP 143/83
[2017-01-08 23:44] VITALS: BP 143/83
[2017-01-09] MEDS: ALBUTEROL SULFATE 2.5 MG/0.5 ML NEB SOLUTION NEB SCH ×4 (03:46→16:40)
[2017-01-09] MEDS: IPRATROPIUM BROMIDE 0.5 MG/2.5 ML NEB SOLUTION NEB SCH ×4 (03:46→16:40)
[2017-01-09] MEDS: MethylPREDNISolone SOD SUCC 125 MG/2 ML VIAL IVP SCH ×3 (06:08→17:15)
[2017-01-09] MEDS: OxyCODONE HCL/ACETAMINOPHEN 5-325 MG TABLET PO PRN ×2 (06:13→16:53)
[2017-01-09 06:15] VITALS: BP 153/91
[2017-01-09 07:46] VITALS: BP 146/90
[2017-01-09] MEDS: PANTOPRAZOLE SODIUM 40 MG DR TABLET PO SCH (08:08)
[2017-01-09] MEDS: AmLODIPine BESYLATE 10 MG TABLET PO SCH (08:08)
[2017-01-09] MEDS: DOCUSATE SODIUM 100 MG CAPSULE PO SCH (08:08)
[2017-01-09] MEDS: HEPARIN SODIUM,PORCINE 5,000 UNITS/ML VIAL SQ SCH ×2 (08:08→16:56)
[2017-01-09 15:37] VITALS: BP 125/90
== END 2017-01-09 19:13 | disposition home or self-care (01) | DRG 189 ==
LOC: EMS 02:54 → 6N 06:38
PROVIDERS: ADMIT Internal Medicine; ATTEND Internal Medicine
DX: J96.01 Acute respiratory failure with hypoxia (principal); J44.1 Chronic obstructive pulmonary disease with (acute) exacerbation; I10 Essential (primary) hypertension; F17.210 Nicotine dependence, cigarettes, uncomplicated; E78.5 Hyperlipidemia, unspecified; J45.909 Unspecified asthma, uncomplicated; F12.90 Cannabis use, unspecified, uncomplicated; Z72.89 Other problems related to lifestyle; Z71.6 Tobacco abuse counseling; Z88.0 Allergy status to penicillin; Z91.19 Patient's noncompliance with other medical treatment and regimen; Z79.899 Other long term (current) drug therapy
CPT/HCPCS: 94640; 94644; 96374; 99285; J1644; J2930

== ENCOUNTER 2017-05-26 08:31 | Emergency (ER) | payer OTHER ==
[~2017-05-26] VITALS: Ht 167.6 cm; Wt 76.8 kg
[~2017-05-26 08:31] MED LIST changes: -ALBU8.5H IH; +ALBU8.5H8 IH; -ASPI-1061 PO; +ASPI81TA33 PO
[2017-05-26 09:37] LABS: GLUCOSE,POINT OF CARE 92 MG/DL (70-110)
[2017-05-26 10:10] LABS: BASOPHILS # (AUTO) 0.05 K/uL (0.00-0.20); BASOPHILS % (AUTO) 0.9 % (0.0-2.0); EOSINOPHILS # (AUTO) 0.02 K/uL (0.00-0.70); HEMOGLOBIN 17.6 g/dL (13.5-17.5); LYMPHOCYTES # (AUTO) 1.4 K/uL (1.0-4.8); LYMPHOCYTES % (AUTO) 24.3 % (22.0-44.0); MEAN CORPUSCULAR HEMOGLOBIN 31.8 pg (26.0-34.0); MEAN CORPUSCULAR HGB CONC 33.1 G/dL (31.0-37.0); MEAN CORPUSCULAR VOLUME 96 fL (80-100); MONOCYTES # (AUTO) 0.4 K/uL (0.1-1.0); MONOCYTES % (AUTO) 6.1 % (2.0-9.0); NEUTROPHILS # (AUTO) 3.9 K/uL (1.8-7.7); NEUTROPHILS % (AUTO) 68.3 % (40.0-70.0); PLATELET COUNT (AUTO) 252 K/uL (150-450); RED BLOOD CELL COUNT(AUTO) 5.53 MIL/uL (4.50-5.90); RED CELL DISTRIBUTION WIDTH 16.5 % (11.5-14.5); WHITE BLOOD COUNT (AUTO) 5.7 K/uL (4.5-11.0)
[2017-05-26 10:13] LABS: APPEARANCE,URINE CLEAR (CLEAR); GLUCOSE, URINE (UA) NEGATIVE (NEGATIVE); KETONES,URINE NEGATIVE (NEGATIVE); LEUKOCYTE ESTERASE ,URINE NEGATIVE (NEGATIVE); OCCULT BLOOD,URINE NEGATIVE (NEGATIVE); PROTEIN,URINE NEGATIVE (NEGATIVE)
[2017-05-26 10:16] LABS: RBC,URINE None Seen /HPF (0-2); SQUAMOUS EPITHELIAL CELL,UR Rare /LPF (None Seen); WBC,URINE None Seen /HPF (0-5)
[2017-05-26 10:24] LABS: ANION GAP 11 mmol/L (8-16); CARBON DIOXIDE 27 mmol/L (22-29); CHLORIDE 104 mmol/L (98-107); CREATININE 0.91 mg/dL (0.60-1.30); GLOMERULAR FILTR. RATE CALC > 60 mL/min (>60); POTASSIUM 4.6 mmol/L (3.5-5.1); SODIUM SERUM 142 mmol/L (136-145); UREA NITROGEN, BLOOD 7 mg/dL (7-18)
[2017-05-26 10:30] LABS: ALANINE AMINOTRANSFERASE 29 U/L (12-78); ALBUMIN 4.1 g/dL (3.4-5.0); ASPARTATE AMINOTRANSFERASE 37 U/L (15-37); BILIRUBIN,TOTAL 0.6 mg/dL (0.1-1.0); TOTAL PROTEIN, SERUM 7.9 g/dL (6.4-8.2)
[2017-05-26 11:26] VITALS: BP 127/84
== END 2017-05-26 11:40 | disposition home or self-care (01) ==
LOC: EMS 08:33
DX: I10 Essential (primary) hypertension (principal); E78.00 Pure hypercholesterolemia, unspecified; J44.9 Chronic obstructive pulmonary disease, unspecified; J45.909 Unspecified asthma, uncomplicated; F12.90 Cannabis use, unspecified, uncomplicated; F17.210 Nicotine dependence, cigarettes, uncomplicated; Z88.0 Allergy status to penicillin
CPT/HCPCS: 82948; 82962; 93005; 99285

== ENCOUNTER 2018-08-31 14:02 | Inpatient (IN) | payer OTHER ==
[~2018-08-31] VITALS: Ht 172.7 cm; Wt 81.6 kg
[~2018-08-31 14:02] MED LIST changes: -ASPI81TA33 PO; +ASPI81TA87 PO; -PRED20 PO
[2018-08-31] MEDS ORDERED: METOCLOPRAMIDE HCL 5 MG/ML 2 ML VIAL IVP ONE (15:30)
[2018-08-31 16:12] LABS: BASOPHILS % (AUTO) 0.4 % (0.0-2.0); EOSINOPHILS % (AUTO) 0.3 % (1.0-6.0); HEMOGLOBIN 17.3 g/dL (13.5-17.5); LYMPHOCYTES # (AUTO) 1.2 K/uL (1.0-4.8); LYMPHOCYTES % (AUTO) 16.4 % (22.0-44.0); MEAN CORPUSCULAR HEMOGLOBIN 32.2 pg (26.0-34.0); MEAN CORPUSCULAR HGB CONC 33.3 G/dL (31.0-37.0); MEAN CORPUSCULAR VOLUME 97 fL (80-100); MONOCYTES # (AUTO) 0.7 K/uL (0.1-1.0); MONOCYTES % (AUTO) 9.2 % (2.0-9.0); NEUTROPHILS # (AUTO) 5.6 K/uL (1.8-7.7); NEUTROPHILS % (AUTO) 73.7 % (40.0-70.0); PLATELET COUNT (AUTO) 284 K/uL (150-450); RED BLOOD CELL COUNT(AUTO) 5.38 MIL/uL (4.50-5.90); RED CELL DISTRIBUTION WIDTH 15.9 % (11.5-14.5)
[2018-08-31 16:26] LABS: ANION GAP 7 mmol/L (8-16); CALCIUM, TOTAL 9.4 mg/dL (8.8-10.5); CARBON DIOXIDE 34 mmol/L (22-29); CHLORIDE 100 mmol/L (98-107); CREATININE 0.88 mg/dL (0.60-1.30); GLOMERULAR FILTR. RATE CALC > 60 mL/min (>60); GLUCOSE,RANDOM 91 mg/dL (70-110); POTASSIUM 3.8 mmol/L (3.5-5.1); SODIUM SERUM 141 mmol/L (136-145); UREA NITROGEN, BLOOD 14 mg/dL (7-18)
[2018-08-31 16:32] LABS: ALANINE AMINOTRANSFERASE 46 U/L (12-78); ALBUMIN 3.8 g/dL (3.4-5.0); ALKALINE PHOSPHATASE 75 U/L (46-116); ASPARTATE AMINOTRANSFERASE 66 U/L (15-37); BILIRUBIN,TOTAL 0.5 mg/dL (0.1-1.0); TOTAL PROTEIN, SERUM 7.6 g/dL (6.4-8.2)
[2018-08-31] MEDS ORDERED: METOCLOPRAMIDE HCL 10 MG TABLET PO ONE (17:00)
[2018-08-31] MEDS ORDERED: ALBUTEROL SULFATE 5 MG/ML 20 ML NEB SOLN [BULK] NEB ONE (18:45)
[2018-08-31] MEDS ORDERED: MethylPREDNISolone SOD SUCC 125 MG/2 ML VIAL IVP ONE (18:45)
[2018-08-31] MEDS ORDERED: IPRATROPIUM BROMIDE 0.5 MG/2.5 ML NEB SOLUTION NEB ONE (18:45)
[2018-08-31] MEDS ORDERED: ACETAMINOPHEN 325 MG TABLET PO ONE (18:45)
[2018-08-31] MEDS ORDERED: ONDANSETRON HCL 4 MG/2 ML VIAL IVP PRN ×2 (19:00→21:15)
[2018-08-31] MEDS ORDERED: ACETAMINOPHEN 325 MG TABLET PO PRN ×2 (19:00→21:15)
[2018-08-31] MEDS ORDERED: 0.9% SODIUM CHLORIDE 10 ML SYRINGE IVP PRN (19:00)
[2018-08-31 19:01] LABS: LIPASE 135 U/L (73-393)
[2018-08-31 19:13] LABS: APPEARANCE,URINE CLEAR (CLEAR); BILIRUBIN,URINE NEGATIVE (NEGATIVE); GLUCOSE, URINE (UA) NEGATIVE (NEGATIVE); KETONES,URINE TRACE mg/dL (NEGATIVE); LEUKOCYTE ESTERASE ,URINE NEGATIVE (NEGATIVE); NITRATE,URINE NEGATIVE (NEGATIVE); OCCULT BLOOD,URINE NEGATIVE (NEGATIVE); PROTEIN,URINE POS 1+ (NEGATIVE)
[2018-08-31 19:23] LABS: BACTERIA,URINE None Seen /HPF (None Seen); RBC,URINE 0-2 /HPF (0-2); SQUAMOUS EPITHELIAL CELL,UR Rare /LPF (None Seen); WBC,URINE 0-2 /HPF (0-5)
[2018-08-31] MEDS ORDERED: ALBUTEROL SULFATE 2.5 MG/0.5 ML NEB SOLUTION NEB PRN (21:15)
[2018-08-31] MEDS ORDERED: MORPHINE SULFATE 4 MG/ML SYRINGE IVP PRN (21:15)
[2018-08-31] MEDS ORDERED: IPRATROPIUM BROMIDE 0.5 MG/2.5 ML NEB SOLUTION NEB PRN (21:15)
[2018-08-31] MEDS ORDERED: HYDROCODONE/ACETAMINOPHEN 5-325 MG TABLET PO PRN (21:15)
[2018-08-31] MEDS ORDERED: MAGNESIUM HYDROXIDE SUSPENSION 30 ML UDCUP PO PRN (21:15)
[2018-08-31] MEDS ORDERED: ZOLPIDEM TARTRATE 5 MG TABLET PO PRN (21:15)
[2018-08-31] MEDS ORDERED: BISACODYL 10 MG RECTAL RECTAL SUPPOSITORY PR PRN (21:15)
[2018-08-31] MEDS ORDERED: AZITHROMYCIN 500 MG/NS 250 ML IV SCH (22:00)
[2018-08-31 22:58] VITALS: BP 140/83
[2018-08-31] MEDS: MethylPREDNISolone SOD SUCC 125 MG/2 ML VIAL IVP SCH (23:30)
[2018-08-31] MEDS: HEPARIN SODIUM,PORCINE 5,000 UNITS/ML VIAL SQ SCH (23:30)
[2018-09-01] MEDS ORDERED: ALBUTEROL SULFATE 2.5 MG/0.5 ML NEB SOLUTION NEB SCH
[2018-09-01] MEDS ORDERED: IPRATROPIUM BROMIDE 0.5 MG/2.5 ML NEB SOLUTION NEB SCH
[2018-09-01 01:03] VITALS: BP 133/81
[2018-09-01] MEDS: ALBUTEROL SULFATE 2.5 MG/0.5 ML NEB SOLUTION NEB SCH ×2 (02:01→08:06)
[2018-09-01] MEDS: IPRATROPIUM BROMIDE 0.5 MG/2.5 ML NEB SOLUTION NEB SCH ×2 (02:02→08:05)
[2018-09-01] MEDS: MethylPREDNISolone SOD SUCC 125 MG/2 ML VIAL IVP SCH ×2 (05:04→11:47)
[2018-09-01 05:30] VITALS: BP 118/78
[2018-09-01 06:47] LABS: BASOPHILS % (AUTO) 0.1 % (0.0-2.0); EOSINOPHILS % (AUTO) 0 % (1.0-6.0); HEMATOCRIT 47.4 % (41-53); LYMPHOCYTES # (AUTO) 0.7 K/uL (1.0-4.8); LYMPHOCYTES % (AUTO) 12.1 % (22.0-44.0); MEAN CORPUSCULAR HEMOGLOBIN 32.6 pg (26.0-34.0); MEAN CORPUSCULAR HGB CONC 33.7 G/dL (31.0-37.0); MEAN CORPUSCULAR VOLUME 97 fL (80-100); MONOCYTES % (AUTO) 0.8 % (2.0-9.0); NEUTROPHILS # (AUTO) 5.1 K/uL (1.8-7.7); PLATELET COUNT (AUTO) 293 K/uL (150-450); RED CELL DISTRIBUTION WIDTH 15.6 % (11.5-14.5)
[2018-09-01 06:59] LABS: ALANINE AMINOTRANSFERASE 48 U/L (12-78); ALBUMIN 3.3 g/dL (3.4-5.0); ALKALINE PHOSPHATASE 67 U/L (46-116); ANION GAP 6 mmol/L (8-16); ASPARTATE AMINOTRANSFERASE 60 U/L (15-37); BILIRUBIN,TOTAL 0.6 mg/dL (0.1-1.0); CALCIUM, TOTAL 8.8 mg/dL (8.8-10.5); CARBON DIOXIDE 30 mmol/L (22-29); CHLORIDE 101 mmol/L (98-107); GLOMERULAR FILTR. RATE CALC > 60 mL/min (>60); GLUCOSE,RANDOM 127 mg/dL (70-110); POTASSIUM 4.1 mmol/L (3.5-5.1); SODIUM SERUM 137 mmol/L (136-145); TOTAL PROTEIN, SERUM 6.8 g/dL (6.4-8.2); UREA NITROGEN, BLOOD 15 mg/dL (7-18)
[2018-09-01 07:12] VITALS: BP 124/73
[2018-09-01 08:30] LABS: AMPHET/METH SCREEN,URINE NEGATIVE (NEGATIVE); BARBITURATE SCREEN, URINE NEGATIVE (NEGATIVE); BENZODIAZEPINES SCREEN,URINE NEGATIVE (NEGATIVE); CANNABINOID SCREEN,URINE POSITIVE (NEGATIVE); COCAINE SCREEN,URINE NEGATIVE (NEGATIVE); METHADONE SCREEN, URINE NEGATIVE (NEGATIVE); OPIATE SCREEN,URINE POSITIVE (NEGATIVE)
[2018-09-01 08:33] LABS: PHENCYCLIDINE SCREEN,URINE NEGATIVE (NEGATIVE)
[2018-09-01] MEDS: HEPARIN SODIUM,PORCINE 5,000 UNITS/ML VIAL SQ SCH (08:54)
[2018-09-01] MEDS ORDERED: BENZONATATE 100 MG CAPSULE PO SCH (09:00)
[2018-09-01] MEDS ORDERED: AmLODIPine BESYLATE 10 MG TABLET PO SCH (09:00)
[2018-09-01] MEDS ORDERED: PANTOPRAZOLE SODIUM 40 MG DR TABLET PO SCH (09:00)
[2018-09-01] MEDS ORDERED: DOCUSATE SODIUM 100 MG CAPSULE PO SCH (09:00)
[2018-09-01] MEDS ORDERED: ATORVASTATIN CALCIUM 40 MG TABLET PO SCH (09:00)
[2018-09-01] MEDS ORDERED: FLUTICASONE/VILANTEROL 200-25 MCG/INH INHALER [14] IH SCH (09:00)
[2018-09-01] MEDS ORDERED: ASPIRIN 81 MG EC TABLET PO SCH (09:00)
[2018-09-01] MEDS ORDERED: GuaiFENesin SR 600 MG ER TABLET PO SCH (09:00)
[2018-09-01 11:12] VITALS: BP 148/87
== END 2018-09-01 13:40 | disposition home or self-care (01) | DRG 192 ==
LOC: EMS 14:03 → 5S 20:17 → 5N 21:32 → 5S 21:33
PROVIDERS: ADMIT Internal Medicine; ATTEND Internal Medicine
DX: J44.1 Chronic obstructive pulmonary disease with (acute) exacerbation (principal); R11.2 Nausea with vomiting, unspecified; I10 Essential (primary) hypertension; E78.5 Hyperlipidemia, unspecified; E78.00 Pure hypercholesterolemia, unspecified; Z87.891 Personal history of nicotine dependence; Z79.899 Other long term (current) drug therapy; Z79.82 Long term (current) use of aspirin; Z88.0 Allergy status to penicillin
CPT/HCPCS: 70450; 74022; 80307; 94640; 96374; G0378; J0456; J1644; J2765; J2930

== ENCOUNTER 2018-11-03 13:22 | Emergency (ER) | payer OTHER ==
[~2018-11-03] VITALS: Ht 167.6 cm; Wt 78.6 kg
[2018-11-03 16:14] LABS: ANION GAP 9 mmol/L (8-16); CALCIUM, TOTAL 9.9 mg/dL (8.8-10.5); CARBON DIOXIDE 27 mmol/L (22-29); CHLORIDE 107 mmol/L (98-107); CREATININE 0.93 mg/dL (0.60-1.30); GLOMERULAR FILTR. RATE CALC > 60 mL/min (>60); GLUCOSE,RANDOM 79 mg/dL (70-110); POTASSIUM 4.4 mmol/L (3.5-5.1); SODIUM SERUM 143 mmol/L (136-145); UREA NITROGEN, BLOOD 15 mg/dL (7-18)
[2018-11-03 16:19] LABS: ALANINE AMINOTRANSFERASE 33 U/L (12-78); ALBUMIN 3.5 g/dL (3.4-5.0); ALKALINE PHOSPHATASE 75 U/L (46-116); ASPARTATE AMINOTRANSFERASE 30 U/L (15-37); BILIRUBIN,TOTAL 0.2 mg/dL (0.1-1.0)
[2018-11-03 16:35] LABS: BASOPHILS % (AUTO) 0.5 % (0.0-2.0); HEMATOCRIT 48.3 % (41-53); LYMPHOCYTES # (AUTO) 1.8 K/uL (1.0-4.8); LYMPHOCYTES % (AUTO) 28.4 % (22.0-44.0); MEAN CORPUSCULAR HEMOGLOBIN 31.7 pg (26.0-34.0); MEAN CORPUSCULAR HGB CONC 33.1 G/dL (31.0-37.0); MEAN CORPUSCULAR VOLUME 96 fL (80-100); MONOCYTES # (AUTO) 0.6 K/uL (0.1-1.0); MONOCYTES % (AUTO) 9.3 % (2.0-9.0); NEUTROPHILS # (AUTO) 3.8 K/uL (1.8-7.7); NEUTROPHILS % (AUTO) 60.8 % (40.0-70.0); PLATELET COUNT (AUTO) 304 K/uL (150-450); RED BLOOD CELL COUNT(AUTO) 5.04 MIL/uL (4.50-5.90); RED CELL DISTRIBUTION WIDTH 14.8 % (11.5-14.5)
[2018-11-03 17:48] VITALS: BP 128/88
== END 2018-11-03 17:49 | disposition home or self-care (01) ==
LOC: EMS 13:23
DX: R11.0 Nausea (principal); F17.210 Nicotine dependence, cigarettes, uncomplicated; F12.90 Cannabis use, unspecified, uncomplicated; E78.00 Pure hypercholesterolemia, unspecified; J44.9 Chronic obstructive pulmonary disease, unspecified; Z88.0 Allergy status to penicillin; Z79.899 Other long term (current) drug therapy
CPT/HCPCS: 93005

== ENCOUNTER 2019-01-22 20:39 | Emergency (ER) | payer OTHER ==
[~2019-01-22] VITALS: Ht 167.6 cm; Wt 75.0 kg
[2019-01-22] MEDS ORDERED: CARISOPRODOL 350 MG TABLET PO ONE (22:00)
[2019-01-22] MEDS ORDERED: KETOROLAC TROMETHAMINE 60 MG/2 ML VIAL IM ONE (22:00)
[2019-01-22] MEDS ORDERED: HYDROCODONE/ACETAMINOPHEN 5-325 MG TABLET PO ONE (22:00)
[2019-01-23 01:29] VITALS: BP 145/88
== END 2019-01-23 02:00 | disposition home or self-care (01) ==
LOC: EMS 20:40
DX: S63.501A Unspecified sprain of right wrist, initial encounter (principal); I10 Essential (primary) hypertension; M54.5 Low back pain; M54.6 Pain in thoracic spine; E78.00 Pure hypercholesterolemia, unspecified; J43.9 Emphysema, unspecified; F12.90 Cannabis use, unspecified, uncomplicated; F17.210 Nicotine dependence, cigarettes, uncomplicated; Z88.0 Allergy status to penicillin; Z79.899 Other long term (current) drug therapy; Z98.890 Other specified postprocedural states; X50.9XXA Other and unspecified overexertion or strenuous movements or postures, initial encounter; X50.0XXA Overexertion from strenuous movement or load, initial encounter; Y93.89 Activity, other specified; Y92.89 Other specified places as the place of occurrence of the external cause; Y99.8 Other external cause status
CPT/HCPCS: 29125; 73090; 96372; 99283; J1885

== ENCOUNTER 2019-11-14 23:35 | Inpatient (IN) | payer OTHER ==
[~2019-11-14] VITALS: Ht 167.6 cm; Wt 82.4 kg
[~2019-11-14 23:35] MED LIST changes: -AUD NEB; -FLUT1BLS PO; -IPRNEB IH; -UMEC62.5 PO
[2019-11-14] MEDS ORDERED: IPRATROPIUM BROMIDE 0.5 MG/2.5 ML NEB SOLUTION NEB ONE (23:49)
[2019-11-14] MEDS ORDERED: 0.9% SODIUM CHLORIDE 5 ML NEB SOLUTION NEB ONE (23:49)
[2019-11-14] MEDS ORDERED: ALBUTEROL SULFATE 5 MG/ML 20 ML NEB SOLN [BULK] NEB ONE (23:49)
[2019-11-14 23:56] LABS: HEMATOCRIT 51.4 % (41-53); HEMOGLOBIN 16.7 g/dL (13.5-17.5); MEAN CORPUSCULAR HGB CONC 32.4 G/dL (31.0-37.0); MEAN CORPUSCULAR VOLUME 93 fL (80-100); MONOCYTES # (AUTO) 0.7 K/uL (0.1-1.0)
[2019-11-15 00:02] LABS: ANION GAP 8 mmol/L (8-16); CALCIUM, TOTAL 9.2 mg/dL (8.8-10.5); CARBON DIOXIDE 33 mmol/L (22-29); CHLORIDE 102 mmol/L (98-107); CREATININE 1.19 mg/dL (0.60-1.30); GLOMERULAR FILTR. RATE CALC > 60 mL/min (>60); GLUCOSE,RANDOM 124 mg/dL (70-110); POTASSIUM 3.9 mmol/L (3.5-5.1); SODIUM SERUM 143 mmol/L (136-145); UREA NITROGEN, BLOOD 18 mg/dL (7-18)
[2019-11-15 00:04] LABS: BASOPHILS % (AUTO) 0.1 % (0.0-2.0); EOSINOPHILS % (AUTO) 0.1 % (1.0-6.0); LYMPHOCYTES # (AUTO) 0.9 K/uL (1.0-4.8); LYMPHOCYTES % (AUTO) 11.4 % (22.0-44.0); MEAN CORPUSCULAR HEMOGLOBIN 30.2 pg (26.0-34.0); MONOCYTES % (AUTO) 8.9 % (2.0-9.0); NEUTROPHILS # (AUTO) 6.6 K/uL (1.8-7.7); NEUTROPHILS % (AUTO) 79.5 % (40.0-70.0); PLATELET COUNT (AUTO) 273 K/uL (150-450); RED BLOOD CELL COUNT(AUTO) 5.51 MIL/uL (4.50-5.90); RED CELL DISTRIBUTION WIDTH 16.6 % (11.5-14.5)
[2019-11-15] MEDS ORDERED: ALBUTEROL SULFATE 5 MG/ML 20 ML NEB SOLN [BULK] NEB ONE (00:15)
[2019-11-15] MEDS ORDERED: IPRATROPIUM BROMIDE 0.5 MG/2.5 ML NEB SOLUTION NEB ONE (00:15)
[2019-11-15 00:16] LABS: D-DIMER 0.59 mg/L FEU (0.00-0.50); PROTHROMBIN TIME 9.9 SEC (9.4-11.6)
[2019-11-15 00:20] LABS: B-TYPE NATRIURETIC PEPTIDE 24 pg/mL (0-100)
[2019-11-15 00:24] LABS: ABG A-A DIFF O2 248.8 mmHg (10-20.0); ABG BASE EXCESS 4.8 mmol/L (-2.0-3.0); ABG CARBOXYHEMOGLOBIN 1.7 % (0.0-1.5); ABG HCO3 26.7 mmol/L (22.0-26.0); ABG METHEMOGLOBIN 0.4 % (0.0-1.5); ABG OXYGEN CONTENT 24.1 mL/dL (15.0-23.0); ABG OXYGEN SATURATION 99.8 % (95.0-98.0); ABG OXYHEMOGLOBIN 97.7 % (94.0-100.0); ABG PCO2 66 mmHg (35-45); ABG PH 7.297 (7.35-7.450); ABG TOTAL HEMOGLOBIN 16.8 G/dL (12.0-18.0); PO2, ARTERIAL BG 398.7 mmHg (79.0-87.0); SOURCE, BLOOD GAS ARTERIAL; TEMPERATURE, FAHRENHEIT, BG 98.6 FAHREN (96.0-98.6)
[2019-11-15 00:26] LABS: O2 DEVICE,BLOOD GAS BIPAP (ROOM AIR); SITE, BLOOD GAS RT RADIAL
[2019-11-15 00:27] LABS: ALANINE AMINOTRANSFERASE 49 U/L (12-78); ALBUMIN 3.8 g/dL (3.4-5.0); ALKALINE PHOSPHATASE 68 U/L (46-116); ASPARTATE AMINOTRANSFERASE 55 U/L (15-37); BILIRUBIN,TOTAL 0.3 mg/dL (0.1-1.0); TOTAL PROTEIN, SERUM 8.1 g/dL (6.4-8.2)
[2019-11-15 00:28] LABS: CREATINE KINASE, TOTAL ONLY 1653 U/L (39-308)
[2019-11-15 00:54] LABS: INFLUENZA TYPE A NEGATIVE FOR TYPE A (NEGATIVE); INFLUENZA TYPE B NEGATIVE FOR TYPE B (NEGATIVE)
[2019-11-15] MEDS ORDERED: SODIUM CHLORIDE 0.9% 100 ML ONE (01:52)
[2019-11-15] MEDS ORDERED: IOVERSOL 350 MG/ML 100 ML VIAL ONE (01:52)
[2019-11-15] MEDS ORDERED: CefTRIAXone 1 GM/DEXTROSE 50 ML IV ONE (02:45)
[2019-11-15] MEDS ORDERED: AZITHROMYCIN 500 MG/NS 250 ML IV ONE (02:45)
[2019-11-15] MEDS ORDERED: METOPROLOL TARTRATE 50 MG TABLET PO ONE (04:45)
[2019-11-15] MEDS ORDERED: BUMETANIDE 1 MG TABLET PO ONE (04:45)
[2019-11-15] MEDS ORDERED: ONDANSETRON HCL 4 MG/2 ML VIAL IVP PRN (05:00)
[2019-11-15] MEDS ORDERED: 0.9% SODIUM CHLORIDE 10 ML SYRINGE IVP PRN (05:00)
[2019-11-15] MEDS ORDERED: ACETAMINOPHEN 325 MG TABLET PO PRN (05:00)
[2019-11-15 06:00] VITALS: BP 151/96
[2019-11-15 08:00] VITALS: BP 150/90
[2019-11-15] MEDS ORDERED: ALBUTEROL SULFATE 2.5 MG/0.5 ML NEB SOLUTION NEB PRN (10:45)
[2019-11-15] MEDS ORDERED: IPRATROPIUM BROMIDE 0.5 MG/2.5 ML NEB SOLUTION NEB PRN (10:45)
[2019-11-15 12:00] VITALS: BP 141/74
[2019-11-15] MEDS: HydrALAZINE HCL 20 MG/ML VIAL IVP PRN (13:27)
[2019-11-15] MEDS ORDERED: 0.9% SODIUM CHLORIDE 5 ML NEB SOLUTION NEB ONE ×2 (13:47→14:23)
[2019-11-15] MEDS ORDERED: IPRATROPIUM BROMIDE 0.5 MG/2.5 ML NEB SOLUTION NEB SCH (14:00)
[2019-11-15] MEDS ORDERED: ALBUTEROL SULFATE 2.5 MG/0.5 ML NEB SOLUTION NEB SCH (14:00)
[2019-11-15] MEDS ORDERED: RAPID SEQUENCE KIT [RSI] 1 EACH KIT ONE (14:11)
[2019-11-15] MEDS ORDERED: MethylPREDNISolone SOD SUCC 125 MG/2 ML VIAL ONE (14:20)
[2019-11-15] MEDS ORDERED: MethylPREDNISolone SOD SUCC 125 MG/2 ML VIAL IVP ONE ×2 (14:30)
[2019-11-15] MEDS ORDERED: VECURONIUM BROMIDE 10 MG/VIAL IVP ONE (15:45)
[2019-11-15] MEDS ORDERED: ETOMIDATE 2 MG/ML 10 ML VIAL IVP ONE (15:45)
[2019-11-15 15:53] LABS: SITE, BLOOD GAS RT RADIAL; SOURCE, BLOOD GAS ARTERIAL
[2019-11-15 15:54] LABS: ABG BASE EXCESS -0.1 mmol/L (-2.0-3.0); ABG HCO3 23.2 mmol/L (22.0-26.0); ABG PCO2 54 mmHg (35-45); ABG PH 7.306 (7.35-7.450); PO2, ARTERIAL BG 79.9 mmHg (79.0-87.0)
[2019-11-15 15:55] LABS: ABG CARBOXYHEMOGLOBIN 0.4 % (0.0-1.5); ABG METHEMOGLOBIN 0.3 % (0.0-1.5); ABG OXYGEN CONTENT 23.1 mL/dL (15.0-23.0); ABG OXYHEMOGLOBIN 95.3 % (94.0-100.0); ABG TOTAL HEMOGLOBIN 17.2 G/dL (12.0-18.0); O2 DEVICE,BLOOD GAS BIPAP (ROOM AIR)
[2019-11-15 15:56] LABS: PRESSURE SUPPORT, BG 11 cm H2O; SPONTANEOUS VT, BG 635 ml
[2019-11-15 16:00] VITALS: BP 205/95
[2019-11-15] MEDS: PROPOFOL 1000 MG/ISO-OSM 100 ML IV PRN ×3 (16:19→22:40)
[2019-11-15 16:49] LABS: ABG A-A DIFF O2 318.2 mmHg (10-20.0); ABG BASE EXCESS -0.4 mmol/L (-2.0-3.0); ABG CARBOXYHEMOGLOBIN 0.2 % (0.0-1.5); ABG HCO3 22.4 mmol/L (22.0-26.0); ABG METHEMOGLOBIN 0.2 % (0.0-1.5); ABG OXYGEN CONTENT 23.8 mL/dL (15.0-23.0); ABG OXYGEN SATURATION 98.7 % (95.0-98.0); ABG OXYHEMOGLOBIN 98.3 % (94.0-100.0); ABG PCO2 70 mmHg (35-45); ABG PH 7.213 (7.35-7.450); ABG TOTAL HEMOGLOBIN 17.1 G/dL (12.0-18.0); PO2, ARTERIAL BG 142.4 mmHg (79.0-87.0); SITE, BLOOD GAS RT RADIAL; SOURCE, BLOOD GAS ARTERIAL; TEMPERATURE, FAHRENHEIT, BG 98.6 FAHREN (96.0-98.6)
[2019-11-15 16:50] LABS: O2 DEVICE,BLOOD GAS VENTILATOR (ROOM AIR); PEEP,BG 5 cm H2O; VT, ABG 450 ml
[2019-11-15] MEDS: FentaNYL CITRATE PF 500 MCG in DEXTROSE 5%-WATER 90 ML IV PRN ×2 (17:28→21:42)
[2019-11-15 17:31] LABS: BASOPHILS % (AUTO) 0.1 % (0.0-2.0); EOSINOPHILS % (AUTO) 0 % (1.0-6.0); HEMATOCRIT 50.8 % (41-53); HEMOGLOBIN 16.5 g/dL (13.5-17.5); LYMPHOCYTES # (AUTO) 0.9 K/uL (1.0-4.8); LYMPHOCYTES % (AUTO) 12.8 % (22.0-44.0); MEAN CORPUSCULAR HEMOGLOBIN 30.5 pg (26.0-34.0); MEAN CORPUSCULAR HGB CONC 32.6 G/dL (31.0-37.0); MEAN CORPUSCULAR VOLUME 94 fL (80-100); MONOCYTES # (AUTO) 0.3 K/uL (0.1-1.0); MONOCYTES % (AUTO) 4.3 % (2.0-9.0); NEUTROPHILS # (AUTO) 5.9 K/uL (1.8-7.7); NEUTROPHILS % (AUTO) 82.8 % (40.0-70.0); PLATELET COUNT (AUTO) 276 K/uL (150-450); RED BLOOD CELL COUNT(AUTO) 5.42 MIL/uL (4.50-5.90); RED CELL DISTRIBUTION WIDTH 16.9 % (11.5-14.5)
[2019-11-15 17:34] LABS: ANION GAP 15 mmol/L (8-16); CALCIUM, TOTAL 9.6 mg/dL (8.8-10.5); CARBON DIOXIDE 24 mmol/L (22-29); CHLORIDE 103 mmol/L (98-107); CREATININE 1.12 mg/dL (0.60-1.30); GLOMERULAR FILTR. RATE CALC > 60 mL/min (>60); GLUCOSE,RANDOM 143 mg/dL (70-110); POTASSIUM 3.7 mmol/L (3.5-5.1); SODIUM SERUM 142 mmol/L (136-145); UREA NITROGEN, BLOOD 25 mg/dL (7-18)
[2019-11-15] MEDS: MethylPREDNISolone SOD SUCC 125 MG/2 ML VIAL IVP SCH (18:16)
[2019-11-15] MEDS: IPRATROPIUM BROMIDE 0.5 MG/2.5 ML NEB SOLUTION NEB SCH ×2 (19:42→22:56)
[2019-11-15] MEDS: ALBUTEROL SULFATE 2.5 MG/0.5 ML NEB SOLUTION NEB SCH ×2 (19:42→22:56)
[2019-11-15 20:00] VITALS: BP 113/57
[2019-11-15] MEDS ORDERED: SODIUM CHLORIDE 0.9% 50 ML ONE (21:28)
[2019-11-16] VITALS: BP 115/58
[2019-11-16] MEDS: MethylPREDNISolone SOD SUCC 125 MG/2 ML VIAL IVP SCH ×4 (00:14→17:46)
[2019-11-16] MEDS: PROPOFOL 1000 MG/ISO-OSM 100 ML IV PRN ×6 (02:38→21:45)
[2019-11-16] MEDS: FentaNYL CITRATE PF 500 MCG in DEXTROSE 5%-WATER 90 ML IV PRN ×5 (02:38→20:49)
[2019-11-16 04:00] VITALS: BP 97/59
[2019-11-16 05:05] LABS: BASOPHILS % (AUTO) 0.4 % (0.0-2.0); EOSINOPHILS % (AUTO) 0 % (1.0-6.0); HEMATOCRIT 45.4 % (41-53); HEMOGLOBIN 14.8 g/dL (13.5-17.5); LYMPHOCYTES # (AUTO) 0.7 K/uL (1.0-4.8); LYMPHOCYTES % (AUTO) 12.5 % (22.0-44.0); MEAN CORPUSCULAR HEMOGLOBIN 30.6 pg (26.0-34.0); MEAN CORPUSCULAR HGB CONC 32.7 G/dL (31.0-37.0); MEAN CORPUSCULAR VOLUME 94 fL (80-100); MONOCYTES # (AUTO) 0.4 K/uL (0.1-1.0); NEUTROPHILS # (AUTO) 4.8 K/uL (1.8-7.7); NEUTROPHILS % (AUTO) 81.1 % (40.0-70.0); PLATELET COUNT (AUTO) 224 K/uL (150-450); RED BLOOD CELL COUNT(AUTO) 4.84 MIL/uL (4.50-5.90); RED CELL DISTRIBUTION WIDTH 16.6 % (11.5-14.5)
[2019-11-16 05:22] LABS: ALBUMIN 3.2 g/dL (3.4-5.0); BILIRUBIN,TOTAL 0.2 mg/dL (0.1-1.0); CREATININE 1.97 mg/dL (0.60-1.30); TOTAL PROTEIN, SERUM 6.8 g/dL (6.4-8.2)
[2019-11-16 08:00] VITALS: BP 134/72
[2019-11-16] MEDS: IPRATROPIUM BROMIDE 0.5 MG/2.5 ML NEB SOLUTION NEB SCH ×5 (08:50→22:38)
[2019-11-16] MEDS: ALBUTEROL SULFATE 2.5 MG/0.5 ML NEB SOLUTION NEB SCH ×5 (08:50→22:38)
[2019-11-16 10:40] LABS: ABG A-A DIFF O2 227.6 mmHg (10-20.0); ABG CARBOXYHEMOGLOBIN 0.5 % (0.0-1.5); ABG HCO3 25.6 mmol/L (22.0-26.0); ABG METHEMOGLOBIN 0.3 % (0.0-1.5); ABG OXYGEN CONTENT 20.7 mL/dL (15.0-23.0); ABG OXYGEN SATURATION 91.6 % (95.0-98.0); ABG OXYHEMOGLOBIN 90.9 % (94.0-100.0); ABG PCO2 57 mmHg (35-45); ABG PH 7.327 (7.35-7.450); ABG TOTAL HEMOGLOBIN 16.2 G/dL (12.0-18.0); PO2, ARTERIAL BG 65.7 mmHg (79.0-87.0); SOURCE, BLOOD GAS ARTERIAL; TEMPERATURE, FAHRENHEIT, BG 97.9 FAHREN (96.0-98.6)
[2019-11-16 10:42] LABS: O2 DEVICE,BLOOD GAS VENTILATOR (ROOM AIR); SITE, BLOOD GAS RT RADIAL; VT, ABG 450 ml
[2019-11-16 10:43] LABS: PEEP,BG 5 cm H2O
[2019-11-16 12:00] VITALS: BP 103/57
[2019-11-16 16:00] VITALS: BP 135/62
[2019-11-16 20:00] VITALS: BP 104/52
[2019-11-16] MEDS: FAMOTIDINE 10 MG/ML 2 ML VIAL IVP SCH (21:28)
[2019-11-17] VITALS: BP 109/55
[2019-11-17] MEDS: HEPARIN SODIUM,PORCINE 5,000 UNITS/ML VIAL SQ SCH ×3 (00:31→15:39)
[2019-11-17] MEDS: MethylPREDNISolone SOD SUCC 125 MG/2 ML VIAL IVP SCH ×4 (00:47→17:35)
[2019-11-17] MEDS: FentaNYL CITRATE PF 500 MCG in DEXTROSE 5%-WATER 90 ML IV PRN ×6 (00:52→22:04)
[2019-11-17] MEDS: PROPOFOL 1000 MG/ISO-OSM 100 ML IV PRN ×8 (01:26→23:38)
[2019-11-17 04:00] VITALS: BP 110/56
[2019-11-17 05:41] LABS: BASOPHILS % (AUTO) 0.1 % (0.0-2.0); EOSINOPHILS % (AUTO) 0 % (1.0-6.0); HEMATOCRIT 43.6 % (41-53); HEMOGLOBIN 14.5 g/dL (13.5-17.5); LYMPHOCYTES # (AUTO) 0.5 K/uL (1.0-4.8); LYMPHOCYTES % (AUTO) 6.5 % (22.0-44.0); MEAN CORPUSCULAR HEMOGLOBIN 30.9 pg (26.0-34.0); MEAN CORPUSCULAR HGB CONC 33.2 G/dL (31.0-37.0); MEAN CORPUSCULAR VOLUME 93 fL (80-100); MONOCYTES # (AUTO) 0.6 K/uL (0.1-1.0); MONOCYTES % (AUTO) 7.7 % (2.0-9.0); NEUTROPHILS # (AUTO) 6.7 K/uL (1.8-7.7); RED BLOOD CELL COUNT(AUTO) 4.68 MIL/uL (4.50-5.90); RED CELL DISTRIBUTION WIDTH 16.5 % (11.5-14.5)
[2019-11-17 05:48] LABS: CALCIUM, TOTAL 8.5 mg/dL (8.8-10.5); CREATININE 2.01 mg/dL (0.60-1.30); POTASSIUM 4.1 mmol/L (3.5-5.1)
[2019-11-17 06:58] LABS: NEUTROPHILS % (AUTO) 85.7 % (40.0-70.0)
[2019-11-17 07:00] LABS: PLATELET COUNT (AUTO) 216 K/uL (150-450)
[2019-11-17] MEDS: IPRATROPIUM BROMIDE 0.5 MG/2.5 ML NEB SOLUTION NEB SCH ×5 (07:39→23:13)
[2019-11-17] MEDS: ALBUTEROL SULFATE 2.5 MG/0.5 ML NEB SOLUTION NEB SCH ×5 (07:39→23:13)
[2019-11-17] MEDS: FAMOTIDINE 10 MG/ML 2 ML VIAL IVP SCH ×2 (07:55→20:18)
[2019-11-17 08:00] VITALS: BP 106/59
[2019-11-17 08:32] LABS: ABG A-A DIFF O2 305.6 mmHg (10-20.0); ABG BASE EXCESS 1.7 mmol/L (-2.0-3.0); ABG CARBOXYHEMOGLOBIN 0.5 % (0.0-1.5); ABG HCO3 25.1 mmol/L (22.0-26.0); ABG METHEMOGLOBIN 0.3 % (0.0-1.5); ABG OXYGEN CONTENT 19.4 mL/dL (15.0-23.0); ABG OXYGEN SATURATION 92.2 % (95.0-98.0); ABG OXYHEMOGLOBIN 91.5 % (94.0-100.0); ABG PCO2 49 mmHg (35-45); ABG TOTAL HEMOGLOBIN 15.1 G/dL (12.0-18.0); PO2, ARTERIAL BG 68.2 mmHg (79.0-87.0); SITE, BLOOD GAS RT RADIAL; SOURCE, BLOOD GAS ARTERIAL; TEMPERATURE, FAHRENHEIT, BG 98.6 FAHREN (96.0-98.6)
[2019-11-17 08:33] LABS: O2 DEVICE,BLOOD GAS VENTILATOR (ROOM AIR); PEEP,BG 5 cm H2O; VT, ABG 450 ml
[2019-11-17 12:00] VITALS: BP 104/57
[2019-11-17 14:03] LABS: APPEARANCE,URINE CLEAR (CLEAR); BILIRUBIN,URINE NEGATIVE (NEGATIVE); GLUCOSE, URINE (UA) NEGATIVE (NEGATIVE); KETONES,URINE NEGATIVE (NEGATIVE); LEUKOCYTE ESTERASE ,URINE NEGATIVE (NEGATIVE); NITRATE,URINE NEGATIVE (NEGATIVE); OCCULT BLOOD,URINE NEGATIVE (NEGATIVE); PROTEIN,URINE NEGATIVE (NEGATIVE); UROBILINOGEN,URINE 0.2 mg/dL (<=1.0)
[2019-11-17 14:09] LABS: AMPHET/METH SCREEN,URINE NEGATIVE (NEGATIVE); BARBITURATE SCREEN, URINE NEGATIVE (NEGATIVE); BENZODIAZEPINES SCREEN,URINE NEGATIVE (NEGATIVE); CANNABINOID SCREEN,URINE NEGATIVE (NEGATIVE); COCAINE SCREEN,URINE NEGATIVE (NEGATIVE); METHADONE SCREEN, URINE NEGATIVE (NEGATIVE); OPIATE SCREEN,URINE NEGATIVE (NEGATIVE)
[2019-11-17 14:25] LABS: PHENCYCLIDINE SCREEN,URINE NEGATIVE (NEGATIVE)
[2019-11-17] MEDS: RINGERS SOLUTION,LACTATED 1,000 ML IV SCH (14:45)
[2019-11-17 16:00] VITALS: BP 105/55
[2019-11-17 20:00] VITALS: BP 139/94
[2019-11-17] MEDS: AMINO ACIDS/PROTEIN HYDROLYS 30 ML TUBE PO SCH (21:00)
[2019-11-18] VITALS: BP 148/97
[2019-11-18] MEDS: HEPARIN SODIUM,PORCINE 5,000 UNITS/ML VIAL SQ SCH ×5 (00:08→17:20)
[2019-11-18] MEDS: MethylPREDNISolone SOD SUCC 125 MG/2 ML VIAL IVP SCH ×4 (00:08→17:20)
[2019-11-18] MEDS: FentaNYL CITRATE PF 500 MCG in DEXTROSE 5%-WATER 90 ML IV PRN ×6 (01:29→23:54)
[2019-11-18] MEDS: PROPOFOL 1000 MG/ISO-OSM 100 ML IV PRN ×6 (03:37→21:59)
[2019-11-18] MEDS: RINGERS SOLUTION,LACTATED 1,000 ML IV SCH ×2 (03:53→19:08)
[2019-11-18 04:00] VITALS: BP 123/77
[2019-11-18] MEDS ORDERED: IPRATROPIUM BROMIDE 0.5 MG/2.5 ML NEB SOLUTION NEB PRN (04:15)
[2019-11-18] MEDS ORDERED: ALBUTEROL SULFATE 2.5 MG/0.5 ML NEB SOLUTION NEB PRN (04:15)
[2019-11-18] MEDS ORDERED: ONDANSETRON HCL 4 MG/2 ML VIAL IVP PRN (04:15)
[2019-11-18 08:00] VITALS: BP 116/75
[2019-11-18] MEDS: FAMOTIDINE 10 MG/ML 2 ML VIAL IVP SCH ×2 (09:04→20:59)
[2019-11-18] MEDS: AMINO ACIDS/PROTEIN HYDROLYS 30 ML TUBE PO SCH ×4 (09:05→21:38)
[2019-11-18] MEDS: IPRATROPIUM BROMIDE 0.5 MG/2.5 ML NEB SOLUTION NEB SCH ×4 (11:14→22:44)
[2019-11-18] MEDS: ALBUTEROL SULFATE 2.5 MG/0.5 ML NEB SOLUTION NEB SCH ×4 (11:14→22:44)
[2019-11-18 12:00] VITALS: BP 141/92
[2019-11-18 12:15] LABS: ABG A-A DIFF O2 427.4 mmHg (10-20.0); ABG BASE EXCESS 4.2 mmol/L (-2.0-3.0); ABG CARBOXYHEMOGLOBIN 0.6 % (0.0-1.5); ABG HCO3 25.6 mmol/L (22.0-26.0); ABG METHEMOGLOBIN 0.3 % (0.0-1.5); ABG OXYGEN CONTENT 21.8 mL/dL (15.0-23.0); ABG OXYGEN SATURATION 98.3 % (95.0-98.0); ABG OXYHEMOGLOBIN 97.4 % (94.0-100.0); ABG PH 7.222 (7.35-7.450); ABG TOTAL HEMOGLOBIN 15.8 G/dL (12.0-18.0); PO2, ARTERIAL BG 133.6 mmHg (79.0-87.0); SOURCE, BLOOD GAS ARTERIAL; TEMPERATURE, FAHRENHEIT, BG 98.2 FAHREN (96.0-98.6)
[2019-11-18 12:16] LABS: ABG PCO2 79 mmHg (35-45); SITE, BLOOD GAS LFT RADIAL
[2019-11-18 12:17] LABS: O2 DEVICE,BLOOD GAS VENTILATOR (ROOM AIR); PEEP,BG 5 cm H2O; VT, ABG 450 ml
[2019-11-18 14:46] LABS: EOSINOPHILS % (AUTO) 0 % (1.0-6.0); HEMATOCRIT 48.7 % (41-53); HEMOGLOBIN 15.7 g/dL (13.5-17.5); LYMPHOCYTES # (AUTO) 0.5 K/uL (1.0-4.8); LYMPHOCYTES % (AUTO) 5.8 % (22.0-44.0); MEAN CORPUSCULAR HEMOGLOBIN 30.6 pg (26.0-34.0); MEAN CORPUSCULAR HGB CONC 32.2 G/dL (31.0-37.0); MEAN CORPUSCULAR VOLUME 95 fL (80-100); MONOCYTES # (AUTO) 0.4 K/uL (0.1-1.0); MONOCYTES % (AUTO) 4.6 % (2.0-9.0); NEUTROPHILS # (AUTO) 8.3 K/uL (1.8-7.7); PLATELET COUNT (AUTO) 185 K/uL (150-450); RED BLOOD CELL COUNT(AUTO) 5.14 MIL/uL (4.50-5.90); RED CELL DISTRIBUTION WIDTH 16.7 % (11.5-14.5)
[2019-11-18 14:51] LABS: NEUTROPHILS % (AUTO) 89.6 % (40.0-70.0)
[2019-11-18 15:05] LABS: ALBUMIN 3.3 g/dL (3.4-5.0); BILIRUBIN,TOTAL 0.3 mg/dL (0.1-1.0); CALCIUM, TOTAL 8.5 mg/dL (8.8-10.5); CREATININE 1.84 mg/dL (0.60-1.30); MAGNESIUM 3.4 mg/dL (1.80-2.40); PHOSPHORUS 6.3 mg/dL (2.5-4.9); POTASSIUM 5.1 mmol/L (3.5-5.1); TOTAL PROTEIN, SERUM 7.4 g/dL (6.4-8.2)
[2019-11-18] MEDS ORDERED: MAA ALBUMIN AGGREGATED TC99M/UD<10MCL ISOTOPE 1 EA INJ INJ ONE (15:15)
[2019-11-18 16:00] VITALS: BP 162/89
[2019-11-18 19:46] LABS: CREATININE,URINE RANDOM 109.5 mg/dL (30.0-125.0)
[2019-11-18 20:00] VITALS: BP 108/69
[2019-11-18] MEDS: BUDESONIDE 0.5 MG/2 ML NEB SOLUTION NEB SCH (22:44)
[2019-11-19] VITALS (10 sets, daily range): BP systolic 96–187; BP diastolic 64–110
[2019-11-19] MEDS: HEPARIN SODIUM,PORCINE 5,000 UNITS/ML VIAL SQ SCH ×4 (00:42→08:21)
[2019-11-19] MEDS: MethylPREDNISolone SOD SUCC 125 MG/2 ML VIAL IVP SCH ×4 (00:42→18:54)
[2019-11-19] MEDS: PROPOFOL 1000 MG/ISO-OSM 100 ML IV PRN ×6 (02:03→22:16)
[2019-11-19] MEDS: ALBUTEROL SULFATE 2.5 MG/0.5 ML NEB SOLUTION NEB SCH ×6 (02:57→23:15)
[2019-11-19] MEDS: IPRATROPIUM BROMIDE 0.5 MG/2.5 ML NEB SOLUTION NEB SCH ×6 (02:57→23:15)
[2019-11-19] MEDS: FentaNYL CITRATE PF 500 MCG in DEXTROSE 5%-WATER 90 ML IV PRN ×6 (04:31→22:17)
[2019-11-19 06:42] LABS: BASOPHILS % (AUTO) 0.1 % (0.0-2.0); EOSINOPHILS % (AUTO) 0 % (1.0-6.0); HEMATOCRIT 40.8 % (41-53); HEMOGLOBIN 13.5 g/dL (13.5-17.5); LYMPHOCYTES # (AUTO) 0.6 K/uL (1.0-4.8); LYMPHOCYTES % (AUTO) 8.7 % (22.0-44.0); MEAN CORPUSCULAR HEMOGLOBIN 30.8 pg (26.0-34.0); MEAN CORPUSCULAR HGB CONC 33.1 G/dL (31.0-37.0); MEAN CORPUSCULAR VOLUME 93 fL (80-100); MONOCYTES # (AUTO) 0.4 K/uL (0.1-1.0); MONOCYTES % (AUTO) 6.1 % (2.0-9.0); NEUTROPHILS # (AUTO) 6.1 K/uL (1.8-7.7); NEUTROPHILS % (AUTO) 85.1 % (40.0-70.0); PLATELET COUNT (AUTO) 169 K/uL (150-450); RED BLOOD CELL COUNT(AUTO) 4.38 MIL/uL (4.50-5.90); RED CELL DISTRIBUTION WIDTH 16.2 % (11.5-14.5)
[2019-11-19 06:51] LABS: CALCIUM, TOTAL 8.3 mg/dL (8.8-10.5); CREATININE 1.85 mg/dL (0.60-1.30); MAGNESIUM 3.2 mg/dL (1.80-2.40); PHOSPHORUS 3.1 mg/dL (2.5-4.9); POTASSIUM 4.6 mmol/L (3.5-5.1)
[2019-11-19] MEDS: BUDESONIDE 0.5 MG/2 ML NEB SOLUTION NEB SCH ×2 (08:15→19:58)
[2019-11-19] MEDS: FAMOTIDINE 10 MG/ML 2 ML VIAL IVP SCH ×2 (08:49→21:15)
[2019-11-19] MEDS: AMINO ACIDS/PROTEIN HYDROLYS 30 ML TUBE PO SCH ×4 (09:09→21:15)
[2019-11-19] MEDS: RINGERS SOLUTION,LACTATED 1,000 ML IV SCH (09:09)
[2019-11-19] MEDS: SODIUM CHLORIDE 0.45% 1,000 ML IV SCH (14:23)
[2019-11-19] MEDS ORDERED: HEPARIN SODIUM,PORCINE 5,000 UNITS/ML VIAL IVP ONE (17:30)
[2019-11-19 19:04] LABS: BASOPHILS % (AUTO) 0.1 % (0.0-2.0); EOSINOPHILS % (AUTO) 0 % (1.0-6.0); HEMATOCRIT 43.1 % (41-53); HEMOGLOBIN 14.3 g/dL (13.5-17.5); LYMPHOCYTES # (AUTO) 0.6 K/uL (1.0-4.8); LYMPHOCYTES % (AUTO) 5.4 % (22.0-44.0); MEAN CORPUSCULAR HEMOGLOBIN 30.7 pg (26.0-34.0); MEAN CORPUSCULAR HGB CONC 33.2 G/dL (31.0-37.0); MEAN CORPUSCULAR VOLUME 92 fL (80-100); MONOCYTES # (AUTO) 1.2 K/uL (0.1-1.0); MONOCYTES % (AUTO) 10.8 % (2.0-9.0); NEUTROPHILS # (AUTO) 9.1 K/uL (1.8-7.7); NEUTROPHILS % (AUTO) 83.7 % (40.0-70.0); PLATELET COUNT (AUTO) 186 K/uL (150-450); RED BLOOD CELL COUNT(AUTO) 4.67 MIL/uL (4.50-5.90); RED CELL DISTRIBUTION WIDTH 15.9 % (11.5-14.5)
[2019-11-19] MEDS: HEPARIN SODIUM 25000 UNITS/D5W 250 ML IV PRN (19:32)
[2019-11-20] VITALS: BP 92/57
[2019-11-20] MEDS: MethylPREDNISolone SOD SUCC 125 MG/2 ML VIAL IVP SCH ×5 (00:34→23:10)
[2019-11-20 01:47] LABS: PROTHROMBIN TIME 10.6 SEC (9.4-11.6)
[2019-11-20] MEDS: HEPARIN SODIUM,PORCINE 5,000 UNITS/ML VIAL IVP PRN (02:00)
[2019-11-20] MEDS: FentaNYL CITRATE PF 500 MCG in DEXTROSE 5%-WATER 90 ML IV PRN ×8 (02:02→23:05)
[2019-11-20] MEDS: PROPOFOL 1000 MG/ISO-OSM 100 ML IV PRN ×6 (03:05→22:20)
[2019-11-20] MEDS: IPRATROPIUM BROMIDE 0.5 MG/2.5 ML NEB SOLUTION NEB SCH ×6 (03:37→22:54)
[2019-11-20] MEDS: ALBUTEROL SULFATE 2.5 MG/0.5 ML NEB SOLUTION NEB SCH ×6 (03:37→22:54)
[2019-11-20 04:00] VITALS: BP 116/74
[2019-11-20 05:48] LABS: EOSINOPHILS % (AUTO) 0 % (1.0-6.0); HEMATOCRIT 42.3 % (41-53); HEMOGLOBIN 13.8 g/dL (13.5-17.5); LYMPHOCYTES # (AUTO) 0.7 K/uL (1.0-4.8); LYMPHOCYTES % (AUTO) 5.9 % (22.0-44.0); MEAN CORPUSCULAR HEMOGLOBIN 30.2 pg (26.0-34.0); MEAN CORPUSCULAR HGB CONC 32.6 G/dL (31.0-37.0); MEAN CORPUSCULAR VOLUME 93 fL (80-100); MONOCYTES # (AUTO) 0.9 K/uL (0.1-1.0); MONOCYTES % (AUTO) 7.7 % (2.0-9.0); NEUTROPHILS # (AUTO) 10.2 K/uL (1.8-7.7); PLATELET COUNT (AUTO) 186 K/uL (150-450); RED BLOOD CELL COUNT(AUTO) 4.56 MIL/uL (4.50-5.90); RED CELL DISTRIBUTION WIDTH 16.2 % (11.5-14.5)
[2019-11-20 06:00] LABS: NEUTROPHILS % (AUTO) 86.4 % (40.0-70.0)
[2019-11-20 06:15] LABS: ALBUMIN 2.6 g/dL (3.4-5.0); BILIRUBIN,TOTAL 0.3 mg/dL (0.1-1.0); CALCIUM, TOTAL 8.4 mg/dL (8.8-10.5); CREATININE 1.79 mg/dL (0.60-1.30); MAGNESIUM 3.4 mg/dL (1.80-2.40); POTASSIUM 4.3 mmol/L (3.5-5.1); TOTAL PROTEIN, SERUM 6.1 g/dL (6.4-8.2)
[2019-11-20] MEDS: BUDESONIDE 0.5 MG/2 ML NEB SOLUTION NEB SCH ×2 (07:51→20:01)
[2019-11-20 08:00] VITALS: BP 140/98
[2019-11-20] MEDS: FAMOTIDINE 10 MG/ML 2 ML VIAL IVP SCH ×2 (09:49→20:26)
[2019-11-20] MEDS: SODIUM CHLORIDE 0.45% 1,000 ML IV SCH (09:49)
[2019-11-20] MEDS: AMINO ACIDS/PROTEIN HYDROLYS 30 ML TUBE PO SCH ×4 (10:11→20:26)
[2019-11-20 12:00] VITALS: BP 155/90
[2019-11-20 16:00] VITALS: BP 97/66
[2019-11-20 20:00] VITALS: BP 134/81
[2019-11-20] MEDS: BISACODYL 10 MG RECTAL RECTAL SUPPOSITORY PR PRN (23:05)
[2019-11-21] VITALS: BP 102/65
[2019-11-21] MEDS: PROPOFOL 1000 MG/ISO-OSM 100 ML IV PRN ×7 (01:44→23:05)
[2019-11-21] MEDS: FentaNYL CITRATE PF 500 MCG in DEXTROSE 5%-WATER 90 ML IV PRN ×8 (02:12→23:56)
[2019-11-21 04:00] VITALS: BP 106/70
[2019-11-21] MEDS: IPRATROPIUM BROMIDE 0.5 MG/2.5 ML NEB SOLUTION NEB SCH ×6 (04:06→22:38)
[2019-11-21] MEDS: ALBUTEROL SULFATE 2.5 MG/0.5 ML NEB SOLUTION NEB SCH ×6 (04:06→22:38)
[2019-11-21 05:18] LABS: BASOPHILS % (AUTO) 0.2 % (0.0-2.0); EOSINOPHILS % (AUTO) 0 % (1.0-6.0); HEMATOCRIT 42.6 % (41-53); HEMOGLOBIN 13.8 g/dL (13.5-17.5); LYMPHOCYTES # (AUTO) 0.9 K/uL (1.0-4.8); LYMPHOCYTES % (AUTO) 5.8 % (22.0-44.0); MEAN CORPUSCULAR HGB CONC 32.4 G/dL (31.0-37.0); MEAN CORPUSCULAR VOLUME 93 fL (80-100); MONOCYTES # (AUTO) 0.8 K/uL (0.1-1.0); MONOCYTES % (AUTO) 5.7 % (2.0-9.0); PLATELET COUNT (AUTO) 202 K/uL (150-450); RED BLOOD CELL COUNT(AUTO) 4.61 MIL/uL (4.50-5.90); RED CELL DISTRIBUTION WIDTH 16.1 % (11.5-14.5)
[2019-11-21 05:19] LABS: NEUTROPHILS % (AUTO) 88.3 % (40.0-70.0)
[2019-11-21] MEDS: MethylPREDNISolone SOD SUCC 125 MG/2 ML VIAL IVP SCH ×3 (05:31→17:29)
[2019-11-21 05:33] LABS: ALBUMIN 2.6 g/dL (3.4-5.0); BILIRUBIN,TOTAL 0.6 mg/dL (0.1-1.0); CREATININE 1.61 mg/dL (0.60-1.30); POTASSIUM 4.2 mmol/L (3.5-5.1); TOTAL PROTEIN, SERUM 6.1 g/dL (6.4-8.2)
[2019-11-21] MEDS: HEPARIN SODIUM,PORCINE 5,000 UNITS/ML VIAL IVP PRN (06:32)
[2019-11-21 08:00] VITALS: BP 117/70
[2019-11-21 08:46] LABS: ABG A-A DIFF O2 255.7 mmHg (10-20.0); ABG CARBOXYHEMOGLOBIN 0.2 % (0.0-1.5); ABG HCO3 28.2 mmol/L (22.0-26.0); ABG METHEMOGLOBIN 0.3 % (0.0-1.5); ABG OXYGEN SATURATION 92.8 % (95.0-98.0); ABG OXYHEMOGLOBIN 92.3 % (94.0-100.0); ABG PCO2 34 mmHg (35-45); ABG TOTAL HEMOGLOBIN 13.9 G/dL (12.0-18.0); PO2, ARTERIAL BG 63.3 mmHg (79.0-87.0); SOURCE, BLOOD GAS ARTERIAL; TEMPERATURE, FAHRENHEIT, BG 98.1 FAHREN (96.0-98.6)
[2019-11-21 08:50] LABS: SITE, BLOOD GAS LFT RADIAL
[2019-11-21 08:51] LABS: INSPIRATORY TIME, BG 0.8 SEC; O2 DEVICE,BLOOD GAS VENTILATOR (ROOM AIR); PEEP,BG 5 cm H2O; SPONTANEOUS VT, BG 689 ml; VENT MODE, BG Press. Control Vent (ROOM AIR); VT, ABG 689 ml
[2019-11-21] MEDS: AMINO ACIDS/PROTEIN HYDROLYS 30 ML TUBE PO SCH ×4 (09:21→18:10)
[2019-11-21] MEDS: FAMOTIDINE 10 MG/ML 2 ML VIAL IVP SCH ×2 (09:21→21:55)
[2019-11-21] MEDS: HEPARIN SODIUM 25000 UNITS/D5W 250 ML IV PRN ×2 (11:14→23:53)
[2019-11-21 12:00] VITALS: BP 174/101
[2019-11-21] MEDS: BISACODYL 10 MG RECTAL RECTAL SUPPOSITORY PR PRN (14:36)
[2019-11-21 16:00] VITALS: BP 156/85
[2019-11-21 20:00] VITALS: BP 134/85
[2019-11-21] MEDS: MethylPREDNISolone SOD SUCC 40 MG/ML VIAL IVP SCH (23:54)
[2019-11-22] VITALS: BP 112/72
[2019-11-22] MEDS: PROPOFOL 1000 MG/ISO-OSM 100 ML IV PRN ×7 (02:27→23:53)
[2019-11-22] MEDS: FentaNYL CITRATE PF 500 MCG in DEXTROSE 5%-WATER 90 ML IV PRN ×8 (02:31→23:53)
[2019-11-22 04:00] VITALS: BP 105/65
[2019-11-22] MEDS: IPRATROPIUM BROMIDE 0.5 MG/2.5 ML NEB SOLUTION NEB SCH ×6 (04:14→23:05)
[2019-11-22] MEDS: ALBUTEROL SULFATE 2.5 MG/0.5 ML NEB SOLUTION NEB SCH ×6 (04:14→23:05)
[2019-11-22 05:29] LABS: BASOPHILS % (AUTO) 0.1 % (0.0-2.0); EOSINOPHILS % (AUTO) 0.1 % (1.0-6.0); HEMATOCRIT 41.6 % (41-53); HEMOGLOBIN 13.6 g/dL (13.5-17.5); LYMPHOCYTES # (AUTO) 0.9 K/uL (1.0-4.8); LYMPHOCYTES % (AUTO) 4.8 % (22.0-44.0); MEAN CORPUSCULAR HEMOGLOBIN 30.4 pg (26.0-34.0); MEAN CORPUSCULAR HGB CONC 32.6 G/dL (31.0-37.0); MEAN CORPUSCULAR VOLUME 93 fL (80-100); MONOCYTES # (AUTO) 1.3 K/uL (0.1-1.0); MONOCYTES % (AUTO) 6.6 % (2.0-9.0); NEUTROPHILS # (AUTO) 17.1 K/uL (1.8-7.7); PLATELET COUNT (AUTO) 210 K/uL (150-450); RED BLOOD CELL COUNT(AUTO) 4.46 MIL/uL (4.50-5.90); RED CELL DISTRIBUTION WIDTH 16.3 % (11.5-14.5)
[2019-11-22] MEDS: MethylPREDNISolone SOD SUCC 40 MG/ML VIAL IVP SCH ×4 (05:34→23:53)
[2019-11-22 05:48] LABS: ALBUMIN 2.3 g/dL (3.4-5.0); CALCIUM, TOTAL 8.4 mg/dL (8.8-10.5); CREATININE 1.69 mg/dL (0.60-1.30); MAGNESIUM 3.4 mg/dL (1.80-2.40); PHOSPHORUS 4.5 mg/dL (2.5-4.9); POTASSIUM 4.2 mmol/L (3.5-5.1)
[2019-11-22 05:52] LABS: NEUTROPHILS % (AUTO) 88.4 % (40.0-70.0)
[2019-11-22] MEDS: HEPARIN SODIUM 25000 UNITS/D5W 250 ML IV PRN ×2 (06:59→18:25)
[2019-11-22 08:00] VITALS: BP 111/66
[2019-11-22] MEDS: MULTIVITAMINS WITH MINERALS, THERAPEUTIC 15 ML UDCUP NG SCH (08:23)
[2019-11-22] MEDS: FAMOTIDINE 10 MG/ML 2 ML VIAL IVP SCH ×2 (08:23→20:42)
[2019-11-22 09:11] LABS: ABG CARBOXYHEMOGLOBIN 0.5 % (0.0-1.5); ABG HCO3 27.2 mmol/L (22.0-26.0); ABG METHEMOGLOBIN 0.3 % (0.0-1.5); ABG OXYGEN CONTENT 17.5 mL/dL (15.0-23.0); ABG OXYGEN SATURATION 94.1 % (95.0-98.0); ABG OXYHEMOGLOBIN 93.3 % (94.0-100.0); ABG PCO2 36 mmHg (35-45); ABG PH 7.481 (7.35-7.450); ABG TOTAL HEMOGLOBIN 13.3 G/dL (12.0-18.0); PO2, ARTERIAL BG 71.7 mmHg (79.0-87.0); SOURCE, BLOOD GAS ARTERIAL; TEMPERATURE, FAHRENHEIT, BG 98.6 FAHREN (96.0-98.6)
[2019-11-22 09:12] LABS: O2 DEVICE,BLOOD GAS VENTILATOR (ROOM AIR); PEEP,BG 5 cm H2O; SITE, BLOOD GAS RT RADIAL; SPONTANEOUS VT, BG 512 ml; VENT MODE, BG Press. Control Vent (ROOM AIR)
[2019-11-22] MEDS: AMINO ACIDS/PROTEIN HYDROLYS 30 ML TUBE PO SCH ×4 (10:17→18:24)
[2019-11-22 12:00] VITALS: BP 127/79
[2019-11-22] MEDS ORDERED: MAGNESIUM HYDROXIDE SUSPENSION 30 ML UDCUP PO PRN (13:15)
[2019-11-22 16:00] VITALS: BP 103/60
[2019-11-22 20:00] VITALS: BP 95/67
[2019-11-23] VITALS (8 sets, daily range): BP systolic 105–157; BP diastolic 62–92
[2019-11-23] MEDS: IPRATROPIUM BROMIDE 0.5 MG/2.5 ML NEB SOLUTION NEB SCH ×6 (03:05→22:43)
[2019-11-23] MEDS: ALBUTEROL SULFATE 2.5 MG/0.5 ML NEB SOLUTION NEB SCH ×6 (03:05→22:43)
[2019-11-23] MEDS: FentaNYL CITRATE PF 500 MCG in DEXTROSE 5%-WATER 90 ML IV PRN ×5 (04:07→22:05)
[2019-11-23] MEDS: PROPOFOL 1000 MG/ISO-OSM 100 ML IV PRN ×5 (04:07→21:43)
[2019-11-23] MEDS: MethylPREDNISolone SOD SUCC 40 MG/ML VIAL IVP SCH ×3 (05:45→18:07)
[2019-11-23] MEDS: BUDESONIDE 0.5 MG/2 ML NEB SOLUTION NEB SCH ×2 (08:34→22:00)
[2019-11-23] MEDS: MORPHINE SULFATE 2 MG/ML SYRINGE IVP PRN ×2 (08:37→21:44)
[2019-11-23 09:38] LABS: BASOPHILS % (AUTO) 0.1 % (0.0-2.0); EOSINOPHILS % (AUTO) 0.1 % (1.0-6.0); HEMATOCRIT 40.3 % (41-53); HEMOGLOBIN 13.4 g/dL (13.5-17.5); LYMPHOCYTES # (AUTO) 0.5 K/uL (1.0-4.8); LYMPHOCYTES % (AUTO) 3.1 % (22.0-44.0); MEAN CORPUSCULAR HEMOGLOBIN 30.9 pg (26.0-34.0); MEAN CORPUSCULAR HGB CONC 33.1 G/dL (31.0-37.0); MEAN CORPUSCULAR VOLUME 93 fL (80-100); MONOCYTES # (AUTO) 1.3 K/uL (0.1-1.0); MONOCYTES % (AUTO) 7.8 % (2.0-9.0); NEUTROPHILS # (AUTO) 14.4 K/uL (1.8-7.7); PLATELET COUNT (AUTO) 232 K/uL (150-450); RED BLOOD CELL COUNT(AUTO) 4.33 MIL/uL (4.50-5.90); RED CELL DISTRIBUTION WIDTH 16.4 % (11.5-14.5)
[2019-11-23 09:47] LABS: NEUTROPHILS % (AUTO) 88.9 % (40.0-70.0)
[2019-11-23 09:52] LABS: ALBUMIN 2.4 g/dL (3.4-5.0); BILIRUBIN,TOTAL 1.5 mg/dL (0.1-1.0); CREATININE 1.46 mg/dL (0.60-1.30); MAGNESIUM 3.5 mg/dL (1.80-2.40); PHOSPHORUS 4.6 mg/dL (2.5-4.9); POTASSIUM 4.7 mmol/L (3.5-5.1); TOTAL PROTEIN, SERUM 6.1 g/dL (6.4-8.2)
[2019-11-23] MEDS: AMINO ACIDS/PROTEIN HYDROLYS 30 ML TUBE PO SCH ×4 (10:23→18:07)
[2019-11-23] MEDS: FAMOTIDINE 10 MG/ML 2 ML VIAL IVP SCH ×2 (10:23→21:43)
[2019-11-23] MEDS: MULTIVITAMINS WITH MINERALS, THERAPEUTIC 15 ML UDCUP NG SCH (10:23)
[2019-11-23 11:45] LABS: ABG BASE EXCESS 3.2 mmol/L (-2.0-3.0); ABG CARBOXYHEMOGLOBIN 0.5 % (0.0-1.5); ABG HCO3 27.4 mmol/L (22.0-26.0); ABG METHEMOGLOBIN 0.3 % (0.0-1.5); ABG OXYGEN CONTENT 17.6 mL/dL (15.0-23.0); ABG OXYGEN SATURATION 92.6 % (95.0-98.0); ABG OXYHEMOGLOBIN 91.9 % (94.0-100.0); ABG PCO2 35 mmHg (35-45); ABG PH 7.499 (7.35-7.450); ABG TOTAL HEMOGLOBIN 13.6 G/dL (12.0-18.0); O2 DEVICE,BLOOD GAS VENTILATOR (ROOM AIR); PEEP,BG 5 cm H2O; PO2, ARTERIAL BG 64.6 mmHg (79.0-87.0); SITE, BLOOD GAS RT RADIAL; SOURCE, BLOOD GAS ARTERIAL; TEMPERATURE, FAHRENHEIT, BG 98.5 FAHREN (96.0-98.6)
[2019-11-23 11:46] LABS: VENT MODE, BG Press. Control Vent (ROOM AIR)
[2019-11-23] MEDS: DEXMEDETOMIDINE HCL 200 MCG in SODIUM CHLORIDE 0.9% 48 ML IV PRN (16:36)
[2019-11-23] MEDS: LACTULOSE 20 GM/30 ML SOLUTION UDCUP PO PRN (21:44)
[2019-11-23] MEDS: HEPARIN SODIUM 25000 UNITS/D5W 250 ML IV PRN (22:54)
[2019-11-24] VITALS (8 sets, daily range): BP systolic 110–187; BP diastolic 65–111
[2019-11-24] MEDS: MethylPREDNISolone SOD SUCC 40 MG/ML VIAL IVP SCH ×4 (00:57→21:27)
[2019-11-24] MEDS: MORPHINE SULFATE 2 MG/ML SYRINGE IVP PRN ×4 (01:18→21:27)
[2019-11-24] MEDS: PROPOFOL 1000 MG/ISO-OSM 100 ML IV PRN ×7 (01:18→21:29)
[2019-11-24] MEDS: FentaNYL CITRATE PF 500 MCG in DEXTROSE 5%-WATER 90 ML IV PRN ×3 (02:08→10:48)
[2019-11-24] MEDS: IPRATROPIUM BROMIDE 0.5 MG/2.5 ML NEB SOLUTION NEB SCH ×6 (03:29→22:52)
[2019-11-24] MEDS: ALBUTEROL SULFATE 2.5 MG/0.5 ML NEB SOLUTION NEB SCH ×6 (03:29→22:51)
[2019-11-24] MEDS: LACTULOSE 20 GM/30 ML SOLUTION UDCUP PO PRN ×2 (05:10→08:54)
[2019-11-24 06:36] LABS: BASOPHILS % (AUTO) 0.1 % (0.0-2.0); EOSINOPHILS % (AUTO) 0.1 % (1.0-6.0); HEMOGLOBIN 13.5 g/dL (13.5-17.5); LYMPHOCYTES # (AUTO) 0.4 K/uL (1.0-4.8); MEAN CORPUSCULAR HEMOGLOBIN 30.2 pg (26.0-34.0); MEAN CORPUSCULAR HGB CONC 32.2 G/dL (31.0-37.0); MEAN CORPUSCULAR VOLUME 94 fL (80-100); MONOCYTES # (AUTO) 1.4 K/uL (0.1-1.0); MONOCYTES % (AUTO) 7.9 % (2.0-9.0); NEUTROPHILS # (AUTO) 16.4 K/uL (1.8-7.7); PLATELET COUNT (AUTO) 254 K/uL (150-450); RED BLOOD CELL COUNT(AUTO) 4.47 MIL/uL (4.50-5.90); RED CELL DISTRIBUTION WIDTH 16.5 % (11.5-14.5)
[2019-11-24 06:49] LABS: ALBUMIN 2.4 g/dL (3.4-5.0); BILIRUBIN,TOTAL 1.4 mg/dL (0.1-1.0); CALCIUM, TOTAL 8.3 mg/dL (8.8-10.5); CREATININE 1.45 mg/dL (0.60-1.30); POTASSIUM 5.1 mmol/L (3.5-5.1); TOTAL PROTEIN, SERUM 6.3 g/dL (6.4-8.2)
[2019-11-24 07:02] LABS: NEUTROPHILS % (AUTO) 89.9 % (40.0-70.0)
[2019-11-24] MEDS: BUDESONIDE 0.5 MG/2 ML NEB SOLUTION NEB SCH ×2 (07:58→20:15)
[2019-11-24] MEDS: FAMOTIDINE 10 MG/ML 2 ML VIAL IVP SCH ×2 (08:29→21:28)
[2019-11-24] MEDS: MULTIVITAMINS WITH MINERALS, THERAPEUTIC 15 ML UDCUP NG SCH (08:29)
[2019-11-24] MEDS: AMINO ACIDS/PROTEIN HYDROLYS 30 ML TUBE PO SCH ×4 (10:10→17:15)
[2019-11-24 10:40] LABS: ABG A-A DIFF O2 176.4 mmHg (10-20.0); ABG BASE EXCESS 3.6 mmol/L (-2.0-3.0); ABG CARBOXYHEMOGLOBIN 0.6 % (0.0-1.5); ABG HCO3 25.8 mmol/L (22.0-26.0); ABG METHEMOGLOBIN 0.3 % (0.0-1.5); ABG OXYGEN CONTENT 18.2 mL/dL (15.0-23.0); ABG OXYGEN SATURATION 91.4 % (95.0-98.0); ABG OXYHEMOGLOBIN 90.6 % (94.0-100.0); ABG PCO2 65 mmHg (35-45); ABG PH 7.283 (7.35-7.450); ABG TOTAL HEMOGLOBIN 14.3 G/dL (12.0-18.0); PO2, ARTERIAL BG 70.1 mmHg (79.0-87.0); SOURCE, BLOOD GAS ARTERIAL; TEMPERATURE, FAHRENHEIT, BG 98.6 FAHREN (96.0-98.6)
[2019-11-24 10:44] LABS: O2 DEVICE,BLOOD GAS VENTILATOR (ROOM AIR); SITE, BLOOD GAS RT RADIAL; VT, ABG 500 ml
[2019-11-24 10:45] LABS: PEEP,BG 5 cm H2O
[2019-11-24] MEDS: HEPARIN SODIUM,PORCINE 5,000 UNITS/ML VIAL IVP PRN ×2 (12:02→18:15)
[2019-11-24] MEDS: DEXMEDETOMIDINE HCL 200 MCG in SODIUM CHLORIDE 0.9% 48 ML IV PRN ×2 (13:29→18:52)
[2019-11-24 15:17] LABS: ABG A-A DIFF O2 200.4 mmHg (10-20.0); ABG BASE EXCESS 4.9 mmol/L (-2.0-3.0); ABG CARBOXYHEMOGLOBIN 0.6 % (0.0-1.5); ABG HCO3 27.7 mmol/L (22.0-26.0); ABG METHEMOGLOBIN 0.3 % (0.0-1.5); ABG OXYGEN CONTENT 17.1 mL/dL (15.0-23.0); ABG OXYGEN SATURATION 90.5 % (95.0-98.0); ABG OXYHEMOGLOBIN 89.7 % (94.0-100.0); ABG PCO2 52 mmHg (35-45); ABG TOTAL HEMOGLOBIN 13.6 G/dL (12.0-18.0); PO2, ARTERIAL BG 61.4 mmHg (79.0-87.0); SOURCE, BLOOD GAS ARTERIAL; TEMPERATURE, FAHRENHEIT, BG 98.6 FAHREN (96.0-98.6)
[2019-11-24 16:01] LABS: O2 DEVICE,BLOOD GAS VENTILATOR (ROOM AIR); PEEP,BG 5 cm H2O; SITE, BLOOD GAS RT RADIAL; VT, ABG 500 ml
[2019-11-24] MEDS ORDERED: SODIUM CHLORIDE 0.9% 250 ML IV ONE (20:57)
[2019-11-24] MEDS: HEPARIN SODIUM 25000 UNITS/D5W 250 ML IV PRN (22:57)
[2019-11-25] VITALS: BP 121/70
[2019-11-25] MEDS: PROPOFOL 1000 MG/ISO-OSM 100 ML IV PRN ×4 (01:41→19:46)
[2019-11-25] MEDS: MORPHINE SULFATE 2 MG/ML SYRINGE IVP PRN (01:42)
[2019-11-25] MEDS: IPRATROPIUM BROMIDE 0.5 MG/2.5 ML NEB SOLUTION NEB SCH ×6 (03:20→22:44)
[2019-11-25] MEDS: ALBUTEROL SULFATE 2.5 MG/0.5 ML NEB SOLUTION NEB SCH ×6 (03:20→22:44)
[2019-11-25 04:00] VITALS: BP 167/87
[2019-11-25 06:08] LABS: BASOPHILS % (AUTO) 0.3 % (0.0-2.0); EOSINOPHILS % (AUTO) 0 % (1.0-6.0); HEMATOCRIT 40.5 % (41-53); HEMOGLOBIN 12.9 g/dL (13.5-17.5); LYMPHOCYTES # (AUTO) 0.7 K/uL (1.0-4.8); LYMPHOCYTES % (AUTO) 4.2 % (22.0-44.0); MEAN CORPUSCULAR HEMOGLOBIN 30.2 pg (26.0-34.0); MEAN CORPUSCULAR HGB CONC 31.9 G/dL (31.0-37.0); MEAN CORPUSCULAR VOLUME 95 fL (80-100); MONOCYTES # (AUTO) 1.9 K/uL (0.1-1.0); MONOCYTES % (AUTO) 11.9 % (2.0-9.0); NEUTROPHILS # (AUTO) 13.3 K/uL (1.8-7.7); NEUTROPHILS % (AUTO) 83.6 % (40.0-70.0); PLATELET COUNT (AUTO) 275 K/uL (150-450); RED BLOOD CELL COUNT(AUTO) 4.28 MIL/uL (4.50-5.90); RED CELL DISTRIBUTION WIDTH 16.8 % (11.5-14.5)
[2019-11-25 06:21] LABS: ALANINE AMINOTRANSFERASE 267 U/L (12-78); ALBUMIN 2.2 g/dL (3.4-5.0); ALKALINE PHOSPHATASE 42 U/L (46-116); ANION GAP 5 mmol/L (8-16); ASPARTATE AMINOTRANSFERASE 93 U/L (15-37); BILIRUBIN,TOTAL 0.7 mg/dL (0.1-1.0); CALCIUM, TOTAL 8.5 mg/dL (8.8-10.5); CARBON DIOXIDE 31 mmol/L (22-29); CHLORIDE 104 mmol/L (98-107); CREATININE 1.42 mg/dL (0.60-1.30); GLOMERULAR FILTR. RATE CALC > 60 mL/min (>60); GLUCOSE,RANDOM 120 mg/dL (70-110); PHOSPHORUS 4.2 mg/dL (2.5-4.9); POTASSIUM 5.2 mmol/L (3.5-5.1); SODIUM SERUM 140 mmol/L (136-145); TOTAL PROTEIN, SERUM 5.8 g/dL (6.4-8.2); UREA NITROGEN, BLOOD 75 mg/dL (7-18)
[2019-11-25] MEDS: BUDESONIDE 0.5 MG/2 ML NEB SOLUTION NEB SCH ×2 (07:19→20:03)
[2019-11-25 08:00] VITALS: BP 119/73
[2019-11-25 08:33] LABS: ABG A-A DIFF O2 204.3 mmHg (10-20.0); ABG BASE EXCESS 5.7 mmol/L (-2.0-3.0); ABG CARBOXYHEMOGLOBIN 0.5 % (0.0-1.5); ABG HCO3 28.8 mmol/L (22.0-26.0); ABG METHEMOGLOBIN 0.3 % (0.0-1.5); ABG OXYGEN CONTENT 18.1 mL/dL (15.0-23.0); ABG OXYGEN SATURATION 92.4 % (95.0-98.0); ABG OXYHEMOGLOBIN 91.7 % (94.0-100.0); ABG PCO2 45 mmHg (35-45); ABG PH 7.443 (7.35-7.450); PO2, ARTERIAL BG 65.8 mmHg (79.0-87.0); SOURCE, BLOOD GAS ARTERIAL; TEMPERATURE, FAHRENHEIT, BG 98.6 FAHREN (96.0-98.6)
[2019-11-25 08:34] LABS: O2 DEVICE,BLOOD GAS VENTILATOR (ROOM AIR); PEEP,BG 5 cm H2O; SITE, BLOOD GAS RT RADIAL; VT, ABG 500 ml
[2019-11-25] MEDS: DEXMEDETOMIDINE HCL 200 MCG in SODIUM CHLORIDE 0.9% 48 ML IV PRN ×3 (08:38→18:43)
[2019-11-25] MEDS: MULTIVITAMINS WITH MINERALS, THERAPEUTIC 15 ML UDCUP NG SCH (08:46)
[2019-11-25] MEDS: MethylPREDNISolone SOD SUCC 40 MG/ML VIAL IVP SCH ×2 (08:46→21:28)
[2019-11-25] MEDS: FAMOTIDINE 10 MG/ML 2 ML VIAL IVP SCH ×2 (08:47→21:28)
[2019-11-25] MEDS: AMINO ACIDS/PROTEIN HYDROLYS 30 ML TUBE PO SCH ×4 (09:03→17:10)
[2019-11-25 12:00] VITALS: BP 137/75
[2019-11-25 16:00] VITALS: BP 163/92
[2019-11-25] MEDS ORDERED: FentaNYL CITRATE PF 500 MCG in DEXTROSE 5%-WATER 90 ML IV PRN (16:08)
[2019-11-25] MEDS ORDERED: SODIUM CHLORIDE 0.9% 250 ML IV ONE (17:01)
[2019-11-25] MEDS: FentaNYL CITRATE PF 500 MCG in DEXTROSE 5%-WATER 90 ML IV PRN ×2 (17:51→21:28)
[2019-11-25 20:00] VITALS: BP 127/79
[2019-11-25] MEDS: DOCUSATE SODIUM 100 MG/10 ML LIQUID UDCUP NG SCH (21:28)
[2019-11-25] MEDS: HEPARIN SODIUM 25000 UNITS/D5W 250 ML IV PRN (23:29)
[2019-11-26] VITALS: BP 123/76
[2019-11-26] MEDS: PROPOFOL 1000 MG/ISO-OSM 100 ML IV PRN ×5 (01:24→23:05)
[2019-11-26] MEDS: IPRATROPIUM BROMIDE 0.5 MG/2.5 ML NEB SOLUTION NEB SCH ×6 (01:54→23:45)
[2019-11-26] MEDS: ALBUTEROL SULFATE 2.5 MG/0.5 ML NEB SOLUTION NEB SCH ×6 (01:54→23:44)
[2019-11-26] MEDS: DEXMEDETOMIDINE HCL 200 MCG in SODIUM CHLORIDE 0.9% 48 ML IV PRN ×3 (02:09→21:20)
[2019-11-26 04:00] VITALS: BP 140/89
[2019-11-26] MEDS: HydrALAZINE HCL 20 MG/ML VIAL IVP PRN (04:23)
[2019-11-26] MEDS: MORPHINE SULFATE 2 MG/ML SYRINGE IVP PRN (05:39)
[2019-11-26] MEDS: FentaNYL CITRATE PF 500 MCG in DEXTROSE 5%-WATER 90 ML IV PRN ×3 (06:14→17:35)
[2019-11-26 06:22] LABS: HEMATOCRIT 45.1 % (41-53); HEMOGLOBIN 14.5 g/dL (13.5-17.5); MEAN CORPUSCULAR HEMOGLOBIN 30.2 pg (26.0-34.0); MEAN CORPUSCULAR HGB CONC 32.2 G/dL (31.0-37.0); MEAN CORPUSCULAR VOLUME 94 fL (80-100); PLATELET COUNT (AUTO) 300 K/uL (150-450); RED BLOOD CELL COUNT(AUTO) 4.81 MIL/uL (4.50-5.90); RED CELL DISTRIBUTION WIDTH 16.6 % (11.5-14.5)
[2019-11-26 07:21] LABS: BAND NEUTROPHILS % (MANUAL) 2 % (0-5); LYMPHOCYTES % (MANUAL) 4 % (22-44); MONOCYTES % (MANUAL) 3 % (2-9); MYELOCYTES % 1 % (0-0); REACTIVE LYMPHOCYTES 3 % (0-0); SEGMENTED NEUTROPHILS % 87 % (40-70)
[2019-11-26] MEDS: HEPARIN SODIUM,PORCINE 5,000 UNITS/ML VIAL IVP PRN (07:33)
[2019-11-26] MEDS: BUDESONIDE 0.5 MG/2 ML NEB SOLUTION NEB SCH ×2 (07:33→20:08)
[2019-11-26 08:00] VITALS: BP 119/76
[2019-11-26] MEDS: FAMOTIDINE 10 MG/ML 2 ML VIAL IVP SCH ×2 (08:19→21:43)
[2019-11-26] MEDS: MethylPREDNISolone SOD SUCC 40 MG/ML VIAL IVP SCH ×2 (08:20→21:43)
[2019-11-26] MEDS: DOCUSATE SODIUM 100 MG/10 ML LIQUID UDCUP NG SCH ×2 (08:20→21:43)
[2019-11-26] MEDS: MULTIVITAMINS WITH MINERALS, THERAPEUTIC 15 ML UDCUP NG SCH (08:20)
[2019-11-26 09:07] LABS: ABG A-A DIFF O2 189.7 mmHg (10-20.0); ABG CARBOXYHEMOGLOBIN 0.5 % (0.0-1.5); ABG HCO3 26.5 mmol/L (22.0-26.0); ABG METHEMOGLOBIN 0.3 % (0.0-1.5); ABG OXYGEN CONTENT 19.9 mL/dL (15.0-23.0); ABG OXYGEN SATURATION 95.2 % (95.0-98.0); ABG OXYHEMOGLOBIN 94.4 % (94.0-100.0); ABG PCO2 46 mmHg (35-45); ABG PH 7.397 (7.35-7.450); PO2, ARTERIAL BG 78.5 mmHg (79.0-87.0); SOURCE, BLOOD GAS ARTERIAL; TEMPERATURE, FAHRENHEIT, BG 98.6 FAHREN (96.0-98.6)
[2019-11-26 09:08] LABS: PEEP,BG 5 cm H2O; SPONTANEOUS VT, BG 540 ml
[2019-11-26 09:10] LABS: ANION GAP 7 mmol/L (8-16); CALCIUM, TOTAL 8.7 mg/dL (8.8-10.5); CARBON DIOXIDE 29 mmol/L (22-29); CHLORIDE 107 mmol/L (98-107); CREATININE 1.16 mg/dL (0.60-1.30); GLOMERULAR FILTR. RATE CALC > 60 mL/min (>60); GLUCOSE,RANDOM 120 mg/dL (70-110); PHOSPHORUS 3.6 mg/dL (2.5-4.9); POTASSIUM 5.1 mmol/L (3.5-5.1); SODIUM SERUM 143 mmol/L (136-145); UREA NITROGEN, BLOOD 69 mg/dL (7-18)
[2019-11-26 09:11] LABS: O2 DEVICE,BLOOD GAS VENTILATOR (ROOM AIR); SITE, BLOOD GAS RT RADIAL; VT, ABG 500 ml
[2019-11-26] MEDS: AMINO ACIDS/PROTEIN HYDROLYS 30 ML TUBE PO SCH ×4 (09:50→17:17)
[2019-11-26 12:00] VITALS: BP 136/79
[2019-11-26 16:00] VITALS: BP 122/76
[2019-11-26 20:00] VITALS: BP 133/74
[2019-11-26] MEDS ORDERED: DEXMEDETOMIDINE HCL IV PRN (20:30)
[2019-11-26] MEDS ORDERED: SODIUM CHLORIDE 0.9% IV PRN (20:30)
[2019-11-26] MEDS: HEPARIN SODIUM 25000 UNITS/D5W 250 ML IV PRN (21:30)
[2019-11-27] VITALS: BP 125/76
[2019-11-27 04:00] VITALS: BP 131/81
[2019-11-27] MEDS: IPRATROPIUM BROMIDE 0.5 MG/2.5 ML NEB SOLUTION NEB SCH ×6 (04:08→23:24)
[2019-11-27] MEDS: ALBUTEROL SULFATE 2.5 MG/0.5 ML NEB SOLUTION NEB SCH ×6 (04:08→23:24)
[2019-11-27] MEDS: PROPOFOL 1000 MG/ISO-OSM 100 ML IV PRN ×3 (04:12→20:06)
[2019-11-27] MEDS: FentaNYL CITRATE PF 500 MCG in DEXTROSE 5%-WATER 90 ML IV PRN ×2 (06:46→15:34)
[2019-11-27] MEDS: DEXMEDETOMIDINE HCL 200 MCG in SODIUM CHLORIDE 0.9% 48 ML IV PRN (06:48)
[2019-11-27 08:00] VITALS: BP 120/66
[2019-11-27] MEDS: BUDESONIDE 0.5 MG/2 ML NEB SOLUTION NEB SCH ×2 (08:03→20:02)
[2019-11-27] MEDS: FAMOTIDINE 10 MG/ML 2 ML VIAL IVP SCH ×2 (08:40→20:06)
[2019-11-27] MEDS: DOCUSATE SODIUM 100 MG/10 ML LIQUID UDCUP NG SCH ×2 (08:40→20:05)
[2019-11-27] MEDS: MULTIVITAMINS WITH MINERALS, THERAPEUTIC 15 ML UDCUP NG SCH (08:40)
[2019-11-27] MEDS: MethylPREDNISolone SOD SUCC 40 MG/ML VIAL IVP SCH ×2 (08:41→20:06)
[2019-11-27 10:51] LABS: ABG A-A DIFF O2 202.2 mmHg (10-20.0); ABG BASE EXCESS 1.4 mmol/L (-2.0-3.0); ABG CARBOXYHEMOGLOBIN 0.4 % (0.0-1.5); ABG HCO3 25.4 mmol/L (22.0-26.0); ABG METHEMOGLOBIN 0.3 % (0.0-1.5); ABG OXYGEN CONTENT 18.2 mL/dL (15.0-23.0); ABG OXYGEN SATURATION 93.2 % (95.0-98.0); ABG OXYHEMOGLOBIN 92.5 % (94.0-100.0); ABG PCO2 42 mmHg (35-45); ABG PH 7.407 (7.35-7.450); PO2, ARTERIAL BG 70.4 mmHg (79.0-87.0); SOURCE, BLOOD GAS ARTERIAL; TEMPERATURE, FAHRENHEIT, BG 98.6 FAHREN (96.0-98.6)
[2019-11-27 10:56] LABS: SITE, BLOOD GAS RT RADIAL
[2019-11-27 10:57] LABS: O2 DEVICE,BLOOD GAS VENTILATOR (ROOM AIR); PEEP,BG 5 cm H2O; VT, ABG 500 ml
[2019-11-27 11:05] LABS: BASOPHILS % (AUTO) 0.4 % (0.0-2.0); EOSINOPHILS % (AUTO) 0 % (1.0-6.0); HEMATOCRIT 43.7 % (41-53); HEMOGLOBIN 13.9 g/dL (13.5-17.5); LYMPHOCYTES # (AUTO) 0.8 K/uL (1.0-4.8); LYMPHOCYTES % (AUTO) 3.9 % (22.0-44.0); MEAN CORPUSCULAR HGB CONC 31.9 G/dL (31.0-37.0); MEAN CORPUSCULAR VOLUME 94 fL (80-100); MONOCYTES # (AUTO) 2.1 K/uL (0.1-1.0); MONOCYTES % (AUTO) 9.5 % (2.0-9.0); NEUTROPHILS # (AUTO) 18.6 K/uL (1.8-7.7); PLATELET COUNT (AUTO) 297 K/uL (150-450); RED BLOOD CELL COUNT(AUTO) 4.65 MIL/uL (4.50-5.90); RED CELL DISTRIBUTION WIDTH 16.8 % (11.5-14.5)
[2019-11-27 11:06] LABS: NEUTROPHILS % (AUTO) 86.2 % (40.0-70.0)
[2019-11-27 11:28] LABS: ANION GAP 7 mmol/L (8-16); CALCIUM, TOTAL 9.2 mg/dL (8.8-10.5); CARBON DIOXIDE 29 mmol/L (22-29); CHLORIDE 109 mmol/L (98-107); CREATININE 1.07 mg/dL (0.60-1.30); GLOMERULAR FILTR. RATE CALC > 60 mL/min (>60); GLUCOSE,RANDOM 132 mg/dL (70-110); POTASSIUM 5.5 mmol/L (3.5-5.1); SODIUM SERUM 145 mmol/L (136-145); UREA NITROGEN, BLOOD 67 mg/dL (7-18)
[2019-11-27 11:29] LABS: PHOSPHORUS 3.9 mg/dL (2.5-4.9)
[2019-11-27] MEDS: AMINO ACIDS/PROTEIN HYDROLYS 30 ML TUBE PO SCH ×4 (11:43→16:58)
[2019-11-27 12:00] VITALS: BP 142/76
[2019-11-27 16:00] VITALS: BP 156/94
[2019-11-27 20:00] VITALS: BP 130/74
[2019-11-27] MEDS: MORPHINE SULFATE 2 MG/ML SYRINGE IVP PRN (20:53)
[2019-11-27] MEDS ORDERED: SODIUM POLYSTYRENE SULFONATE 15 GM/60 ML SUSPENSION BOTTLE PO ONE (22:15)
[2019-11-28] VITALS: BP 125/73
[2019-11-28] MEDS: PROPOFOL 1000 MG/ISO-OSM 100 ML IV PRN ×4 (00:25→15:36)
[2019-11-28] MEDS: ALBUTEROL SULFATE 2.5 MG/0.5 ML NEB SOLUTION NEB SCH ×6 (03:45→22:43)
[2019-11-28] MEDS: IPRATROPIUM BROMIDE 0.5 MG/2.5 ML NEB SOLUTION NEB SCH ×6 (03:45→22:43)
[2019-11-28 04:00] VITALS: BP 138/88
[2019-11-28 05:17] LABS: BASOPHILS % (AUTO) 0.6 % (0.0-2.0); EOSINOPHILS % (AUTO) 0 % (1.0-6.0); HEMATOCRIT 41.3 % (41-53); HEMOGLOBIN 13.3 g/dL (13.5-17.5); LYMPHOCYTES # (AUTO) 0.7 K/uL (1.0-4.8); LYMPHOCYTES % (AUTO) 3.5 % (22.0-44.0); MEAN CORPUSCULAR HEMOGLOBIN 30.3 pg (26.0-34.0); MEAN CORPUSCULAR HGB CONC 32.2 G/dL (31.0-37.0); MEAN CORPUSCULAR VOLUME 94 fL (80-100); MONOCYTES # (AUTO) 1.3 K/uL (0.1-1.0); MONOCYTES % (AUTO) 6.6 % (2.0-9.0); PLATELET COUNT (AUTO) 299 K/uL (150-450); RED BLOOD CELL COUNT(AUTO) 4.38 MIL/uL (4.50-5.90); RED CELL DISTRIBUTION WIDTH 16.8 % (11.5-14.5)
[2019-11-28 05:27] LABS: ANION GAP 6 mmol/L (8-16); CALCIUM, TOTAL 8.9 mg/dL (8.8-10.5); CARBON DIOXIDE 30 mmol/L (22-29); CHLORIDE 110 mmol/L (98-107); CREATININE 1.24 mg/dL (0.60-1.30); GLOMERULAR FILTR. RATE CALC > 60 mL/min (>60); GLUCOSE,RANDOM 118 mg/dL (70-110); PHOSPHORUS 4.4 mg/dL (2.5-4.9); POTASSIUM 5.4 mmol/L (3.5-5.1); SODIUM SERUM 146 mmol/L (136-145); UREA NITROGEN, BLOOD 67 mg/dL (7-18)
[2019-11-28] MEDS: MORPHINE SULFATE 2 MG/ML SYRINGE IVP PRN ×2 (05:29→10:35)
[2019-11-28 05:40] LABS: NEUTROPHILS % (AUTO) 89.3 % (40.0-70.0)
[2019-11-28 08:00] VITALS: BP 111/75
[2019-11-28] MEDS: BUDESONIDE 0.5 MG/2 ML NEB SOLUTION NEB SCH ×2 (08:06→19:45)
[2019-11-28] MEDS: FAMOTIDINE 10 MG/ML 2 ML VIAL IVP SCH ×2 (08:59→20:23)
[2019-11-28] MEDS: DOCUSATE SODIUM 100 MG/10 ML LIQUID UDCUP NG SCH ×2 (08:59→20:23)
[2019-11-28] MEDS: MethylPREDNISolone SOD SUCC 40 MG/ML VIAL IVP SCH ×2 (08:59→20:23)
[2019-11-28] MEDS: MULTIVITAMINS WITH MINERALS, THERAPEUTIC 15 ML UDCUP NG SCH (08:59)
[2019-11-28] MEDS: AMINO ACIDS/PROTEIN HYDROLYS 30 ML TUBE PO SCH ×4 (09:00→20:25)
[2019-11-28] MEDS: DEXMEDETOMIDINE HCL 200 MCG in SODIUM CHLORIDE 0.9% 48 ML IV PRN ×2 (09:01→14:19)
[2019-11-28 09:39] LABS: ABG A-A DIFF O2 196.8 mmHg (10-20.0); ABG BASE EXCESS 2.3 mmol/L (-2.0-3.0); ABG CARBOXYHEMOGLOBIN 0.2 % (0.0-1.5); ABG HCO3 26.3 mmol/L (22.0-26.0); ABG METHEMOGLOBIN 0.3 % (0.0-1.5); ABG OXYGEN CONTENT 17.1 mL/dL (15.0-23.0); ABG OXYHEMOGLOBIN 94.5 % (94.0-100.0); ABG PCO2 41 mmHg (35-45); ABG PH 7.433 (7.35-7.450); ABG TOTAL HEMOGLOBIN 12.8 G/dL (12.0-18.0); PO2, ARTERIAL BG 77.7 mmHg (79.0-87.0); SOURCE, BLOOD GAS ARTERIAL; TEMPERATURE, FAHRENHEIT, BG 98.7 FAHREN (96.0-98.6)
[2019-11-28 09:40] LABS: O2 DEVICE,BLOOD GAS VENTILATOR (ROOM AIR); PEEP,BG 5 cm H2O; SITE, BLOOD GAS RT RADIAL; VT, ABG 500 ml
[2019-11-28 12:00] VITALS: BP 111/69
[2019-11-28 16:00] VITALS: BP 113/75
[2019-11-28] MEDS: HEPARIN SODIUM 25000 UNITS/D5W 250 ML IV PRN (18:21)
[2019-11-28 20:00] VITALS: BP 104/62
[2019-11-28] MEDS ORDERED: AMINO ACIDS/PROTEIN HYDROLYS 30 ML TUBE PO SCH (21:00)
[2019-11-29] VITALS: BP 137/94
[2019-11-29] MEDS: PROPOFOL 1000 MG/ISO-OSM 100 ML IV PRN ×3 (01:39→22:00)
[2019-11-29] MEDS: ALBUTEROL SULFATE 2.5 MG/0.5 ML NEB SOLUTION NEB SCH ×6 (03:06→22:50)
[2019-11-29] MEDS: IPRATROPIUM BROMIDE 0.5 MG/2.5 ML NEB SOLUTION NEB SCH ×6 (03:06→22:50)
[2019-11-29 04:00] VITALS: BP 126/73
[2019-11-29 05:50] LABS: BASOPHILS % (AUTO) 0.3 % (0.0-2.0); EOSINOPHILS % (AUTO) 0 % (1.0-6.0); HEMATOCRIT 37.7 % (41-53); HEMOGLOBIN 12.2 g/dL (13.5-17.5); LYMPHOCYTES # (AUTO) 0.9 K/uL (1.0-4.8); LYMPHOCYTES % (AUTO) 5.1 % (22.0-44.0); MEAN CORPUSCULAR HEMOGLOBIN 30.4 pg (26.0-34.0); MEAN CORPUSCULAR HGB CONC 32.3 G/dL (31.0-37.0); MEAN CORPUSCULAR VOLUME 94 fL (80-100); MONOCYTES # (AUTO) 1.4 K/uL (0.1-1.0); MONOCYTES % (AUTO) 8.1 % (2.0-9.0); NEUTROPHILS # (AUTO) 15.3 K/uL (1.8-7.7); PLATELET COUNT (AUTO) 274 K/uL (150-450); RED BLOOD CELL COUNT(AUTO) 4.01 MIL/uL (4.50-5.90); RED CELL DISTRIBUTION WIDTH 16.6 % (11.5-14.5)
[2019-11-29 05:52] LABS: NEUTROPHILS % (AUTO) 86.5 % (40.0-70.0)
[2019-11-29 06:04] LABS: ALANINE AMINOTRANSFERASE 198 U/L (12-78); ALBUMIN 1.9 g/dL (3.4-5.0); ALKALINE PHOSPHATASE 41 U/L (46-116); ANION GAP 6 mmol/L (8-16); ASPARTATE AMINOTRANSFERASE 91 U/L (15-37); BILIRUBIN,TOTAL 0.6 mg/dL (0.1-1.0); CALCIUM, TOTAL 8.6 mg/dL (8.8-10.5); CARBON DIOXIDE 30 mmol/L (22-29); CHLORIDE 113 mmol/L (98-107); CREATININE 1.18 mg/dL (0.60-1.30); GLOMERULAR FILTR. RATE CALC > 60 mL/min (>60); GLUCOSE,RANDOM 116 mg/dL (70-110); PHOSPHORUS 3.9 mg/dL (2.5-4.9); POTASSIUM 4.7 mmol/L (3.5-5.1); SODIUM SERUM 149 mmol/L (136-145); TOTAL PROTEIN, SERUM 5.6 g/dL (6.4-8.2); UREA NITROGEN, BLOOD 68 mg/dL (7-18)
[2019-11-29] MEDS: BUDESONIDE 0.5 MG/2 ML NEB SOLUTION NEB SCH ×2 (07:46→20:16)
[2019-11-29 08:00] VITALS: BP 104/74
[2019-11-29] MEDS: MethylPREDNISolone SOD SUCC 40 MG/ML VIAL IVP SCH ×2 (08:42→20:42)
[2019-11-29] MEDS: MULTIVITAMINS WITH MINERALS, THERAPEUTIC 15 ML UDCUP NG SCH (08:42)
[2019-11-29] MEDS: DOCUSATE SODIUM 100 MG/10 ML LIQUID UDCUP NG SCH ×2 (08:42→20:42)
[2019-11-29] MEDS: FAMOTIDINE 10 MG/ML 2 ML VIAL IVP SCH ×2 (08:42→20:42)
[2019-11-29] MEDS: SODIUM ZIRCONIUM CYCLOSILICATE 5 GM POWDER PACKET PO SCH (08:44)
[2019-11-29] MEDS: AMINO ACIDS/PROTEIN HYDROLYS 30 ML TUBE PO SCH ×4 (08:45→21:27)
[2019-11-29] MEDS: DEXMEDETOMIDINE HCL 200 MCG in SODIUM CHLORIDE 0.9% 48 ML IV PRN ×2 (08:45→13:11)
[2019-11-29] MEDS: DEXTROSE 5%-WATER 1,000 ML IV SCH ×2 (10:14→23:53)
[2019-11-29 12:00] VITALS: BP 141/81
[2019-11-29 13:01] LABS: ABG A-A DIFF O2 173.2 mmHg (10-20.0); ABG BASE EXCESS 1.4 mmol/L (-2.0-3.0); ABG CARBOXYHEMOGLOBIN 0.5 % (0.0-1.5); ABG HCO3 25.7 mmol/L (22.0-26.0); ABG METHEMOGLOBIN 0.3 % (0.0-1.5); ABG OXYGEN CONTENT 17.2 mL/dL (15.0-23.0); ABG OXYGEN SATURATION 93.1 % (95.0-98.0); ABG OXYHEMOGLOBIN 92.4 % (94.0-100.0); ABG PCO2 38 mmHg (35-45); ABG PH 7.447 (7.35-7.450); ABG TOTAL HEMOGLOBIN 13.2 G/dL (12.0-18.0); PO2, ARTERIAL BG 68.6 mmHg (79.0-87.0); SOURCE, BLOOD GAS ARTERIAL; TEMPERATURE, FAHRENHEIT, BG 98.6 FAHREN (96.0-98.6)
[2019-11-29 13:02] LABS: CPAP, BG 0 cm H2O; O2 DEVICE,BLOOD GAS VENTILATOR (ROOM AIR); PEEP,BG 0 cm H2O; PRESSURE SUPPORT, BG 8 cm H2O; SITE, BLOOD GAS RT RADIAL; SPONTANEOUS VT, BG 436 ml; VENT MODE, BG SPONTANEOUS (ROOM AIR)
[2019-11-29 16:00] VITALS: BP 154/91
[2019-11-29] MEDS: HEPARIN SODIUM 25000 UNITS/D5W 250 ML IV PRN (19:34)
[2019-11-29 20:00] VITALS: BP 126/77
[2019-11-30] VITALS (8 sets, daily range): BP systolic 132–161; BP diastolic 80–91
[2019-11-30] MEDS: PROPOFOL 1000 MG/ISO-OSM 100 ML IV PRN ×5 (01:10→20:31)
[2019-11-30] MEDS: ALBUTEROL SULFATE 2.5 MG/0.5 ML NEB SOLUTION NEB SCH ×6 (02:18→22:11)
[2019-11-30] MEDS: IPRATROPIUM BROMIDE 0.5 MG/2.5 ML NEB SOLUTION NEB SCH ×6 (02:18→22:11)
[2019-11-30 05:37] LABS: BASOPHILS % (AUTO) 0.2 % (0.0-2.0); EOSINOPHILS % (AUTO) 0 % (1.0-6.0); HEMATOCRIT 39.3 % (41-53); HEMOGLOBIN 12.5 g/dL (13.5-17.5); LYMPHOCYTES # (AUTO) 0.9 K/uL (1.0-4.8); LYMPHOCYTES % (AUTO) 5.2 % (22.0-44.0); MEAN CORPUSCULAR HEMOGLOBIN 29.9 pg (26.0-34.0); MEAN CORPUSCULAR HGB CONC 31.7 G/dL (31.0-37.0); MEAN CORPUSCULAR VOLUME 94 fL (80-100); MONOCYTES # (AUTO) 1.2 K/uL (0.1-1.0); MONOCYTES % (AUTO) 6.7 % (2.0-9.0); NEUTROPHILS # (AUTO) 15.7 K/uL (1.8-7.7); PLATELET COUNT (AUTO) 270 K/uL (150-450); RED BLOOD CELL COUNT(AUTO) 4.17 MIL/uL (4.50-5.90); RED CELL DISTRIBUTION WIDTH 16.7 % (11.5-14.5)
[2019-11-30 05:53] LABS: ALANINE AMINOTRANSFERASE 188 U/L (12-78); ALBUMIN 1.9 g/dL (3.4-5.0); ALKALINE PHOSPHATASE 43 U/L (46-116); ANION GAP 6 mmol/L (8-16); ASPARTATE AMINOTRANSFERASE 86 U/L (15-37); BILIRUBIN,TOTAL 0.6 mg/dL (0.1-1.0); CALCIUM, TOTAL 8.7 mg/dL (8.8-10.5); CARBON DIOXIDE 28 mmol/L (22-29); CHLORIDE 110 mmol/L (98-107); CREATININE 0.98 mg/dL (0.60-1.30); GLOMERULAR FILTR. RATE CALC > 60 mL/min (>60); GLUCOSE,RANDOM 120 mg/dL (70-110); POTASSIUM 4.6 mmol/L (3.5-5.1); SODIUM SERUM 144 mmol/L (136-145); TOTAL PROTEIN, SERUM 5.9 g/dL (6.4-8.2); UREA NITROGEN, BLOOD 56 mg/dL (7-18)
[2019-11-30 05:54] LABS: NEUTROPHILS % (AUTO) 87.9 % (40.0-70.0)
[2019-11-30] MEDS: AMINO ACIDS/PROTEIN HYDROLYS 30 ML TUBE PO SCH ×4 (08:00→20:33)
[2019-11-30] MEDS: BUDESONIDE 0.5 MG/2 ML NEB SOLUTION NEB SCH ×2 (08:08→19:48)
[2019-11-30] MEDS: FAMOTIDINE 10 MG/ML 2 ML VIAL IVP SCH ×2 (08:28→20:32)
[2019-11-30] MEDS: MethylPREDNISolone SOD SUCC 40 MG/ML VIAL IVP SCH ×2 (08:28→20:32)
[2019-11-30] MEDS: SODIUM ZIRCONIUM CYCLOSILICATE 5 GM POWDER PACKET PO SCH (08:29)
[2019-11-30] MEDS: DOCUSATE SODIUM 100 MG/10 ML LIQUID UDCUP NG SCH ×2 (08:29→20:33)
[2019-11-30] MEDS: MULTIVITAMINS WITH MINERALS, THERAPEUTIC 15 ML UDCUP NG SCH (08:29)
[2019-11-30] MEDS ORDERED: VECURONIUM BROMIDE 10 MG/VIAL ONE (11:38)
[2019-11-30] MEDS ORDERED: VECURONIUM BROMIDE 10 MG/VIAL IVP ONE (11:45)
[2019-11-30] MEDS: DEXTROSE 5%-WATER 1,000 ML IV SCH ×2 (16:14→20:33)
[2019-11-30] MEDS: FentaNYL CITRATE PF 500 MCG in DEXTROSE 5%-WATER 90 ML IV PRN (16:43)
[2019-12-01] VITALS (10 sets, daily range): BP systolic 120–166; BP diastolic 76–110
[2019-12-01] MEDS: PROPOFOL 1000 MG/ISO-OSM 100 ML IV PRN ×6 (00:10→23:10)
[2019-12-01] MEDS: FentaNYL CITRATE PF 500 MCG in DEXTROSE 5%-WATER 90 ML IV PRN ×3 (01:35→22:19)
[2019-12-01] MEDS: IPRATROPIUM BROMIDE 0.5 MG/2.5 ML NEB SOLUTION NEB SCH ×6 (01:48→23:18)
[2019-12-01] MEDS: ALBUTEROL SULFATE 2.5 MG/0.5 ML NEB SOLUTION NEB SCH ×6 (01:48→23:18)
[2019-12-01] MEDS: HEPARIN SODIUM,PORCINE 5,000 UNITS/ML VIAL IVP PRN (02:52)
[2019-12-01] MEDS: HEPARIN SODIUM 25000 UNITS/D5W 250 ML IV PRN ×4 (02:57→22:20)
[2019-12-01] MEDS: DEXTROSE 5%-WATER 1,000 ML IV SCH (06:28)
[2019-12-01] MEDS: BUDESONIDE 0.5 MG/2 ML NEB SOLUTION NEB SCH ×2 (07:40→20:01)
[2019-12-01] MEDS: DOCUSATE SODIUM 100 MG/10 ML LIQUID UDCUP NG SCH ×2 (07:45→20:26)
[2019-12-01] MEDS: FAMOTIDINE 10 MG/ML 2 ML VIAL IVP SCH ×2 (07:46→20:26)
[2019-12-01] MEDS: MethylPREDNISolone SOD SUCC 40 MG/ML VIAL IVP SCH (07:47)
[2019-12-01] MEDS: MULTIVITAMINS WITH MINERALS, THERAPEUTIC 15 ML UDCUP NG SCH (07:47)
[2019-12-01] MEDS: AMINO ACIDS/PROTEIN HYDROLYS 30 ML TUBE PO SCH ×5 (08:00→22:17)
[2019-12-01 09:47] LABS: BASOPHILS % (AUTO) 0.1 % (0.0-2.0); EOSINOPHILS % (AUTO) 0.2 % (1.0-6.0); HEMATOCRIT 45.8 % (41-53); HEMOGLOBIN 14.7 g/dL (13.5-17.5); LYMPHOCYTES # (AUTO) 0.9 K/uL (1.0-4.8); LYMPHOCYTES % (AUTO) 7.2 % (22.0-44.0); MEAN CORPUSCULAR HEMOGLOBIN 30.4 pg (26.0-34.0); MEAN CORPUSCULAR VOLUME 95 fL (80-100); MONOCYTES # (AUTO) 0.6 K/uL (0.1-1.0); MONOCYTES % (AUTO) 4.9 % (2.0-9.0); NEUTROPHILS # (AUTO) 11.4 K/uL (1.8-7.7); PLATELET COUNT (AUTO) 183 K/uL (150-450); RED BLOOD CELL COUNT(AUTO) 4.82 MIL/uL (4.50-5.90); RED CELL DISTRIBUTION WIDTH 16.5 % (11.5-14.5)
[2019-12-01 09:48] LABS: NEUTROPHILS % (AUTO) 87.6 % (40.0-70.0)
[2019-12-01 09:58] LABS: ALANINE AMINOTRANSFERASE 171 U/L (12-78); ALBUMIN 1.9 g/dL (3.4-5.0); ALKALINE PHOSPHATASE 45 U/L (46-116); ANION GAP 8 mmol/L (8-16); ASPARTATE AMINOTRANSFERASE 93 U/L (15-37); BILIRUBIN,TOTAL 0.8 mg/dL (0.1-1.0); CALCIUM, TOTAL 8.6 mg/dL (8.8-10.5); CARBON DIOXIDE 22 mmol/L (22-29); CHLORIDE 107 mmol/L (98-107); CREATININE 0.76 mg/dL (0.60-1.30); GLOMERULAR FILTR. RATE CALC > 60 mL/min (>60); GLUCOSE,RANDOM 109 mg/dL (70-110); POTASSIUM 5.8 mmol/L (3.5-5.1); SODIUM SERUM 137 mmol/L (136-145); UREA NITROGEN, BLOOD 39 mg/dL (7-18)
[2019-12-01] MEDS: SODIUM ZIRCONIUM CYCLOSILICATE 5 GM POWDER PACKET PO SCH (16:00)
[2019-12-02] VITALS (12 sets, daily range): BP systolic 103–155; BP diastolic 64–86
[2019-12-02] MEDS: IPRATROPIUM BROMIDE 0.5 MG/2.5 ML NEB SOLUTION NEB SCH ×6 (03:51→23:10)
[2019-12-02] MEDS: ALBUTEROL SULFATE 2.5 MG/0.5 ML NEB SOLUTION NEB SCH ×6 (03:52→23:10)
[2019-12-02] MEDS: PROPOFOL 1000 MG/ISO-OSM 100 ML IV PRN ×4 (04:11→23:30)
[2019-12-02 06:01] LABS: BASOPHILS % (AUTO) 0.2 % (0.0-2.0); EOSINOPHILS % (AUTO) 0.4 % (1.0-6.0); HEMATOCRIT 40.3 % (41-53); HEMOGLOBIN 13.1 g/dL (13.5-17.5); LYMPHOCYTES # (AUTO) 1.4 K/uL (1.0-4.8); LYMPHOCYTES % (AUTO) 8.5 % (22.0-44.0); MEAN CORPUSCULAR HEMOGLOBIN 30.4 pg (26.0-34.0); MEAN CORPUSCULAR HGB CONC 32.4 G/dL (31.0-37.0); MEAN CORPUSCULAR VOLUME 94 fL (80-100); MONOCYTES # (AUTO) 0.7 K/uL (0.1-1.0); MONOCYTES % (AUTO) 4.1 % (2.0-9.0); NEUTROPHILS # (AUTO) 14.4 K/uL (1.8-7.7); PLATELET COUNT (AUTO) 242 K/uL (150-450); RED BLOOD CELL COUNT(AUTO) 4.29 MIL/uL (4.50-5.90); RED CELL DISTRIBUTION WIDTH 16.7 % (11.5-14.5)
[2019-12-02 06:07] LABS: NEUTROPHILS % (AUTO) 86.8 % (40.0-70.0)
[2019-12-02 06:15] LABS: ALANINE AMINOTRANSFERASE 184 U/L (12-78); ALBUMIN 2.3 g/dL (3.4-5.0); ALKALINE PHOSPHATASE 54 U/L (46-116); ANION GAP 7 mmol/L (8-16); ASPARTATE AMINOTRANSFERASE 96 U/L (15-37); BILIRUBIN,TOTAL 1.2 mg/dL (0.1-1.0); CALCIUM, TOTAL 8.9 mg/dL (8.8-10.5); CARBON DIOXIDE 24 mmol/L (22-29); CHLORIDE 104 mmol/L (98-107); CREATININE 0.92 mg/dL (0.60-1.30); GLOMERULAR FILTR. RATE CALC > 60 mL/min (>60); GLUCOSE,RANDOM 98 mg/dL (70-110); POTASSIUM 4.5 mmol/L (3.5-5.1); SODIUM SERUM 135 mmol/L (136-145); TOTAL PROTEIN, SERUM 6.4 g/dL (6.4-8.2); UREA NITROGEN, BLOOD 39 mg/dL (7-18)
[2019-12-02] MEDS: HEPARIN SODIUM 25000 UNITS/D5W 250 ML IV PRN ×4 (07:17→18:46)
[2019-12-02] MEDS: MULTIVITAMINS WITH MINERALS, THERAPEUTIC 15 ML UDCUP NG SCH (07:37)
[2019-12-02] MEDS: LACTULOSE 20 GM/30 ML SOLUTION UDCUP PO PRN (07:37)
[2019-12-02] MEDS: FAMOTIDINE 10 MG/ML 2 ML VIAL IVP SCH ×2 (07:38→21:49)
[2019-12-02] MEDS: SODIUM ZIRCONIUM CYCLOSILICATE 5 GM POWDER PACKET PO SCH (07:38)
[2019-12-02] MEDS: DOCUSATE SODIUM 100 MG/10 ML LIQUID UDCUP NG SCH ×2 (07:38→21:49)
[2019-12-02] MEDS: AMINO ACIDS/PROTEIN HYDROLYS 30 ML TUBE PO SCH ×4 (07:40→21:51)
[2019-12-02] MEDS: BUDESONIDE 0.5 MG/2 ML NEB SOLUTION NEB SCH ×2 (08:25→19:45)
[2019-12-02] MEDS ORDERED: MethylPREDNISolone SOD SUCC 40 MG/ML VIAL IVP SCH (09:00)
[2019-12-02] MEDS: FentaNYL CITRATE PF 500 MCG in DEXTROSE 5%-WATER 90 ML IV PRN ×2 (11:01→18:45)
[2019-12-02] MEDS: ACETAMINOPHEN 325 MG TABLET NG PRN (11:49)
[2019-12-02 13:33] LABS: INR 1.1 (0.9-1.1); PROTHROMBIN TIME 11.2 SEC (9.4-11.6)
[2019-12-02] MEDS ORDERED: DEXMEDETOMIDINE HCL 200 MCG in SODIUM CHLORIDE 0.9% 48 ML IV PRN (14:00)
[2019-12-02] MEDS: DEXMEDETOMIDINE HCL 200 MCG in SODIUM CHLORIDE 0.9% 48 ML IV PRN ×2 (14:28→23:29)
[2019-12-03] VITALS: BP 117/79
[2019-12-03] MEDS: ALBUTEROL SULFATE 2.5 MG/0.5 ML NEB SOLUTION NEB SCH ×6 (03:05→22:46)
[2019-12-03] MEDS: IPRATROPIUM BROMIDE 0.5 MG/2.5 ML NEB SOLUTION NEB SCH ×6 (03:05→22:46)
[2019-12-03 04:00] VITALS: BP 119/74
[2019-12-03 05:51] LABS: EOSINOPHILS % (AUTO) 0.2 % (1.0-6.0); HEMATOCRIT 38.9 % (41-53); HEMOGLOBIN 12.5 g/dL (13.5-17.5); LYMPHOCYTES # (AUTO) 0.9 K/uL (1.0-4.8); MEAN CORPUSCULAR HEMOGLOBIN 30.5 pg (26.0-34.0); MEAN CORPUSCULAR HGB CONC 32.2 G/dL (31.0-37.0); MEAN CORPUSCULAR VOLUME 95 fL (80-100); MONOCYTES # (AUTO) 0.8 K/uL (0.1-1.0); MONOCYTES % (AUTO) 4.6 % (2.0-9.0); NEUTROPHILS # (AUTO) 15.2 K/uL (1.8-7.7); PLATELET COUNT (AUTO) 203 K/uL (150-450); RED CELL DISTRIBUTION WIDTH 16.6 % (11.5-14.5)
[2019-12-03 06:16] LABS: NEUTROPHILS % (AUTO) 90.2 % (40.0-70.0)
[2019-12-03] MEDS: LACTULOSE 20 GM/30 ML SOLUTION UDCUP PO PRN (06:17)
[2019-12-03 06:26] LABS: ALANINE AMINOTRANSFERASE 184 U/L (12-78); ALBUMIN 2.1 g/dL (3.4-5.0); ALKALINE PHOSPHATASE 53 U/L (46-116); ANION GAP 8 mmol/L (8-16); ASPARTATE AMINOTRANSFERASE 102 U/L (15-37); BILIRUBIN,TOTAL 1.2 mg/dL (0.1-1.0); CALCIUM, TOTAL 8.6 mg/dL (8.8-10.5); CARBON DIOXIDE 25 mmol/L (22-29); CHLORIDE 104 mmol/L (98-107); CREATININE 0.83 mg/dL (0.60-1.30); GLOMERULAR FILTR. RATE CALC > 60 mL/min (>60); GLUCOSE,RANDOM 103 mg/dL (70-110); POTASSIUM 4.2 mmol/L (3.5-5.1); SODIUM SERUM 137 mmol/L (136-145); UREA NITROGEN, BLOOD 41 mg/dL (7-18)
[2019-12-03 08:00] VITALS: BP 149/89
[2019-12-03] MEDS: AMINO ACIDS/PROTEIN HYDROLYS 30 ML TUBE PO SCH ×4 (08:19→21:39)
[2019-12-03] MEDS: DEXMEDETOMIDINE HCL 200 MCG in SODIUM CHLORIDE 0.9% 48 ML IV PRN ×3 (08:20→21:38)
[2019-12-03] MEDS: BUDESONIDE 0.5 MG/2 ML NEB SOLUTION NEB SCH ×2 (08:21→19:56)
[2019-12-03] MEDS: FAMOTIDINE 10 MG/ML 2 ML VIAL IVP SCH ×2 (08:38→21:45)
[2019-12-03] MEDS: DOCUSATE SODIUM 100 MG/10 ML LIQUID UDCUP NG SCH ×2 (08:39→21:45)
[2019-12-03] MEDS: MULTIVITAMINS WITH MINERALS, THERAPEUTIC 15 ML UDCUP NG SCH (08:39)
[2019-12-03] MEDS: SODIUM ZIRCONIUM CYCLOSILICATE 5 GM POWDER PACKET PO SCH (08:39)
[2019-12-03] MEDS ORDERED: MethylPREDNISolone SOD SUCC 40 MG/ML VIAL IVP SCH (09:00)
[2019-12-03 12:00] VITALS: BP 121/73
[2019-12-03] MEDS: BISACODYL 10 MG RECTAL RECTAL SUPPOSITORY PR PRN (14:42)
[2019-12-03 16:00] VITALS: BP 140/78
[2019-12-03] MEDS: HEPARIN SODIUM 25000 UNITS/D5W 250 ML IV PRN (17:49)
[2019-12-03 20:00] VITALS: BP 117/70
[2019-12-03] MEDS: FentaNYL CITRATE PF 500 MCG in DEXTROSE 5%-WATER 90 ML IV PRN (21:38)
[2019-12-04] VITALS: BP 137/79
[2019-12-04] MEDS: HydrALAZINE HCL 20 MG/ML VIAL IVP PRN (00:11)
[2019-12-04] MEDS: IPRATROPIUM BROMIDE 0.5 MG/2.5 ML NEB SOLUTION NEB SCH ×6 (02:46→22:45)
[2019-12-04] MEDS: ALBUTEROL SULFATE 2.5 MG/0.5 ML NEB SOLUTION NEB SCH ×6 (02:46→22:45)
[2019-12-04] MEDS: DEXMEDETOMIDINE HCL 200 MCG in SODIUM CHLORIDE 0.9% 48 ML IV PRN ×4 (03:46→22:54)
[2019-12-04 04:00] VITALS: BP 126/78
[2019-12-04 04:57] LABS: BASOPHILS % (AUTO) 0.2 % (0.0-2.0); EOSINOPHILS % (AUTO) 0 % (1.0-6.0); HEMATOCRIT 36.4 % (41-53); LYMPHOCYTES # (AUTO) 0.8 K/uL (1.0-4.8); LYMPHOCYTES % (AUTO) 4.4 % (22.0-44.0); MEAN CORPUSCULAR HEMOGLOBIN 30.7 pg (26.0-34.0); MEAN CORPUSCULAR HGB CONC 32.9 G/dL (31.0-37.0); MEAN CORPUSCULAR VOLUME 93 fL (80-100); MONOCYTES # (AUTO) 0.6 K/uL (0.1-1.0); MONOCYTES % (AUTO) 3.4 % (2.0-9.0); NEUTROPHILS # (AUTO) 16.8 K/uL (1.8-7.7); PLATELET COUNT (AUTO) 172 K/uL (150-450); RED CELL DISTRIBUTION WIDTH 16.8 % (11.5-14.5)
[2019-12-04 06:00] LABS: ALANINE AMINOTRANSFERASE 174 U/L (12-78); ALBUMIN 1.9 g/dL (3.4-5.0); ALKALINE PHOSPHATASE 59 U/L (46-116); ANION GAP 6 mmol/L (8-16); ASPARTATE AMINOTRANSFERASE 99 U/L (15-37); BILIRUBIN,TOTAL 1.3 mg/dL (0.1-1.0); CALCIUM, TOTAL 8.9 mg/dL (8.8-10.5); CARBON DIOXIDE 26 mmol/L (22-29); CHLORIDE 104 mmol/L (98-107); CREATININE 0.78 mg/dL (0.60-1.30); GLOMERULAR FILTR. RATE CALC > 60 mL/min (>60); GLUCOSE,RANDOM 110 mg/dL (70-110); POTASSIUM 4.1 mmol/L (3.5-5.1); SODIUM SERUM 136 mmol/L (136-145); TOTAL PROTEIN, SERUM 6.1 g/dL (6.4-8.2); UREA NITROGEN, BLOOD 35 mg/dL (7-18)
[2019-12-04] MEDS: BUDESONIDE 0.5 MG/2 ML NEB SOLUTION NEB SCH ×2 (07:43→20:08)
[2019-12-04 08:00] VITALS: BP 127/75
[2019-12-04] MEDS: FAMOTIDINE 10 MG/ML 2 ML VIAL IVP SCH ×2 (08:05→21:26)
[2019-12-04] MEDS: MULTIVITAMINS WITH MINERALS, THERAPEUTIC 15 ML UDCUP NG SCH (08:06)
[2019-12-04] MEDS: MethylPREDNISolone SOD SUCC 40 MG/ML VIAL IVP SCH (08:06)
[2019-12-04] MEDS: SODIUM ZIRCONIUM CYCLOSILICATE 5 GM POWDER PACKET PO SCH (08:06)
[2019-12-04] MEDS: DOCUSATE SODIUM 100 MG/10 ML LIQUID UDCUP NG SCH ×2 (08:06→21:26)
[2019-12-04] MEDS ORDERED: SODIUM CHLORIDE 0.9% 1,000 ML ONE (09:40)
[2019-12-04] MEDS: FentaNYL CITRATE PF 500 MCG in DEXTROSE 5%-WATER 90 ML IV PRN ×2 (09:43→17:34)
[2019-12-04] MEDS ORDERED: CLINDAMYCIN 300 MG/D5% WATER 50 ML IV ONE (10:00)
[2019-12-04 11:13] LABS: PHOSPHORUS 3.3 mg/dL (2.5-4.9)
[2019-12-04 12:00] VITALS: BP 132/84
[2019-12-04] MEDS ORDERED: LIDOCAINE/PF 2% 5 ML SYRINGE IVP ONE (12:00)
[2019-12-04] MEDS ORDERED: PROPOFOL 1% 20 ML VIAL IVP ONE (12:00)
[2019-12-04 16:00] VITALS: BP 125/93
[2019-12-04] MEDS ORDERED: AMINO ACIDS/PROTEIN HYDROLYS 30 ML TUBE PO SCH (17:30)
[2019-12-04] MEDS: HEPARIN SODIUM,PORCINE 5,000 UNITS/ML VIAL IVP PRN (18:14)
[2019-12-04 20:00] VITALS: BP 140/99
[2019-12-05] VITALS: BP 102/65
[2019-12-05] MEDS: HEPARIN SODIUM,PORCINE 5,000 UNITS/ML VIAL IVP PRN (01:55)
[2019-12-05] MEDS: DEXMEDETOMIDINE HCL 200 MCG in SODIUM CHLORIDE 0.9% 48 ML IV PRN ×3 (03:03→12:24)
[2019-12-05 04:00] VITALS: BP 125/75
[2019-12-05] MEDS: ALBUTEROL SULFATE 2.5 MG/0.5 ML NEB SOLUTION NEB SCH ×4 (04:27→15:37)
[2019-12-05] MEDS: IPRATROPIUM BROMIDE 0.5 MG/2.5 ML NEB SOLUTION NEB SCH ×4 (04:28→15:37)
[2019-12-05 05:03] LABS: BASOPHILS % (AUTO) 0.7 % (0.0-2.0); EOSINOPHILS % (AUTO) 0 % (1.0-6.0); HEMATOCRIT 36.9 % (41-53); LYMPHOCYTES # (AUTO) 0.6 K/uL (1.0-4.8); LYMPHOCYTES % (AUTO) 3.6 % (22.0-44.0); MEAN CORPUSCULAR HEMOGLOBIN 30.8 pg (26.0-34.0); MEAN CORPUSCULAR HGB CONC 32.7 G/dL (31.0-37.0); MEAN CORPUSCULAR VOLUME 94 fL (80-100); MONOCYTES # (AUTO) 0.5 K/uL (0.1-1.0); MONOCYTES % (AUTO) 2.9 % (2.0-9.0); NEUTROPHILS # (AUTO) 14.9 K/uL (1.8-7.7); PLATELET COUNT (AUTO) 140 K/uL (150-450); RED BLOOD CELL COUNT(AUTO) 3.91 MIL/uL (4.50-5.90); RED CELL DISTRIBUTION WIDTH 16.6 % (11.5-14.5)
[2019-12-05 05:05] LABS: NEUTROPHILS % (AUTO) 92.8 % (40.0-70.0)
[2019-12-05 05:22] LABS: ALANINE AMINOTRANSFERASE 157 U/L (12-78); ALBUMIN 1.7 g/dL (3.4-5.0); ALKALINE PHOSPHATASE 58 U/L (46-116); ANION GAP 10 mmol/L (8-16); ASPARTATE AMINOTRANSFERASE 73 U/L (15-37); BILIRUBIN,TOTAL 1.9 mg/dL (0.1-1.0); CARBON DIOXIDE 22 mmol/L (22-29); CHLORIDE 104 mmol/L (98-107); GLOMERULAR FILTR. RATE CALC > 60 mL/min (>60); GLUCOSE,RANDOM 133 mg/dL (70-110); POTASSIUM 4.8 mmol/L (3.5-5.1); SODIUM SERUM 136 mmol/L (136-145); TOTAL PROTEIN, SERUM 6.1 g/dL (6.4-8.2); UREA NITROGEN, BLOOD 38 mg/dL (7-18)
[2019-12-05] MEDS: MORPHINE SULFATE 2 MG/ML SYRINGE IVP PRN ×2 (05:25→16:03)
[2019-12-05] MEDS: HEPARIN SODIUM 25000 UNITS/D5W 250 ML IV PRN (05:26)
[2019-12-05 08:00] VITALS: BP 126/80
[2019-12-05] MEDS: BUDESONIDE 0.5 MG/2 ML NEB SOLUTION NEB SCH (08:03)
[2019-12-05] MEDS: AMINO ACIDS/PROTEIN HYDROLYS 30 ML TUBE PO SCH ×3 (08:32→17:38)
[2019-12-05] MEDS: MethylPREDNISolone SOD SUCC 40 MG/ML VIAL IVP SCH (09:28)
[2019-12-05] MEDS: MULTIVITAMINS WITH MINERALS, THERAPEUTIC 15 ML UDCUP NG SCH (09:28)
[2019-12-05] MEDS: FAMOTIDINE 10 MG/ML 2 ML VIAL IVP SCH (09:28)
[2019-12-05] MEDS: DOCUSATE SODIUM 100 MG/10 ML LIQUID UDCUP NG SCH (09:28)
[2019-12-05 12:00] VITALS: BP 113/67
[2019-12-05 12:00] LABS: ABG A-A DIFF O2 175.5 mmHg (10-20.0); ABG CARBOXYHEMOGLOBIN 0.8 % (0.0-1.5); ABG HCO3 22.6 mmol/L (22.0-26.0); ABG METHEMOGLOBIN 0.3 % (0.0-1.5); ABG OXYGEN CONTENT 17.5 mL/dL (15.0-23.0); ABG OXYGEN SATURATION 93.3 % (95.0-98.0); ABG OXYHEMOGLOBIN 92.3 % (94.0-100.0); ABG PCO2 33 mmHg (35-45); ABG PH 7.426 (7.35-7.450); ABG TOTAL HEMOGLOBIN 13.5 G/dL (12.0-18.0); PO2, ARTERIAL BG 70.8 mmHg (79.0-87.0); SOURCE, BLOOD GAS ARTERIAL; TEMPERATURE, FAHRENHEIT, BG 99.7 FAHREN (96.0-98.6)
[2019-12-05 12:01] LABS: O2 DEVICE,BLOOD GAS VENTILATOR (ROOM AIR); PEEP,BG 5 cm H2O; SITE, BLOOD GAS LFT RADIAL; SPONTANEOUS VT, BG 506 ml; VT, ABG 500 ml
[2019-12-05] MEDS ORDERED: NICOTINE 21 MG/24 HOUR PATCH TD SCH (14:30)
[2019-12-05] MEDS: ACETAMINOPHEN 325 MG TABLET NG PRN (14:41)
[2019-12-05 16:00] VITALS: BP 100/64
[2019-12-05] MEDS ORDERED: DEXMEDETOMIDINE HCL 200 MCG in SODIUM CHLORIDE 0.9% 48 ML IV PRN (16:00)
[2019-12-05 17:43] VITALS: BP 114/73
== END 2019-12-05 19:00 | DRG 4 ==
LOC: EMS 23:35 → ICUN 11-15 05:00 → ICU 11-17 19:00
PROVIDERS: ADMIT Hospitalist; ATTEND Hospitalist
PROC: 5A1955Z Respiratory Ventilation, Greater than 96 Consecutive Hours (ICD-10-PCS; principal; 2019-11-15)
PROC: 0BH17EZ Insertion of Endotracheal Airway into Trachea, Via Natural or Artificial Opening (ICD-10-PCS; 2019-11-15)
PROC: 0B113F4 Bypass Trachea to Cutaneous with Tracheostomy Device, Percutaneous Approach (ICD-10-PCS; 2019-11-30)
PROC: 0DH63UZ Insertion of Feeding Device into Stomach, Percutaneous Approach (ICD-10-PCS; 2019-12-04)
DX: A41.9 Sepsis, unspecified organism (principal); I26.99 Other pulmonary embolism without acute cor pulmonale; J96.00 Acute respiratory failure, unspecified whether with hypoxia or hypercapnia; J44.1 Chronic obstructive pulmonary disease with (acute) exacerbation; E87.2 Acidosis; N17.9 Acute kidney failure, unspecified; Z99.11 Dependence on respirator [ventilator] status; E03.9 Hypothyroidism, unspecified; E78.5 Hyperlipidemia, unspecified; E83.41 Hypermagnesemia; E87.5 Hyperkalemia; N18.9 Chronic kidney disease, unspecified; E78.00 Pure hypercholesterolemia, unspecified; F12.90 Cannabis use, unspecified, uncomplicated; I12.9 Hypertensive chronic kidney disease with stage 1 through stage 4 chronic kidney disease, or unspecified chronic kidney disease; I25.10 Atherosclerotic heart disease of native coronary artery without angina pectoris
CPT/HCPCS: 36245; 36569; 36600; 70450; 71275; 74018; 76770; 76937; 78582; 82271; 82570; 82805; 83605; 83735; 84100; 84145; 84300; 84540; 85379; 87040; 87070; 87081; 87635; 87804; 93005; 93970; 94002; 94003; 94640; 94645; 94660; A9539; A9540; G0378; J0360; J0456; J0690; J0696; J1644; J2270; J2704; J2920; J2930; J3010; J3490; J7030; J7050; J7060; J7120

== ENCOUNTER 2020-07-29 06:17 | Day surgery (SDC) | payer MEDICARE, MEDICAID ==
[~2020-07-29] VITALS: Ht 167.6 cm; Wt 80.9 kg
[2020-07-29] MEDS ORDERED: LIDOCAINE 2% 30 ML JELLY TP ONE (06:18)
[2020-07-29] MEDS ORDERED: ALBUTEROL SULFATE 2.5 MG/0.5 ML NEB SOLUTION NEB ONE (06:18)
[2020-07-29] MEDS ORDERED: BENZOCAINE 20% 50 MCG/SPRAY 57 GM TP ONE (06:18)
[2020-07-29] MEDS ORDERED: LIDOCAINE 4% 50 ML SOLUTION TP ONE (06:18)
[2020-07-29] MEDS ORDERED: SODIUM CHLORIDE 0.9% 1,000 ML ONE (06:41)
[2020-07-29] MEDS ORDERED: SODIUM CHLORIDE 0.9% 1,000 ML IV ONE (07:15)
[2020-07-29] MEDS ORDERED: MIDAZOLAM HCL 2 MG/2 ML VIAL ONE (08:09)
[2020-07-29] MEDS ORDERED: FentaNYL CITRATE-PF 100 MCG/2 ML VIAL ONE (08:09)
[2020-07-29] MEDS ORDERED: OMEP20 PEG (08:25)
[2020-07-29] MEDS ORDERED: DOCU-275 PO (08:25)
[2020-07-29] MEDS ORDERED: SCOP1PAT11 TD (08:25)
[2020-07-29] MEDS ORDERED: BUSP10TA23 PEG (08:25)
[2020-07-29] MEDS ORDERED: PRED10 PEG (08:25)
[2020-07-29] MEDS ORDERED: LIDO30GE4 TP (08:25)
[2020-07-29] MEDS ORDERED: FURO20 PEG (08:25)
[2020-07-29] MEDS ORDERED: PATI8.4P PEG (08:25)
[2020-07-29] MEDS ORDERED: BECL10.62 IH (08:25)
[2020-07-29] MEDS ORDERED: LEVAHFA IH (08:25)
[2020-07-29] MEDS ORDERED: IPRAHFA IH (08:25)
[2020-07-29] MEDS ORDERED: MULT9LIQ9 PEG (08:25)
[2020-07-29] MEDS ORDERED: APIX5TAB PEG (08:25)
[2020-07-29] MEDS ORDERED: ESCI-8 PEG (08:25)
[2020-07-29] MEDS ORDERED: HYD50 PEG (08:25)
[2020-07-29] MEDS ORDERED: MethylPREDNISolone SOD SUCC 125 MG/2 ML VIAL IVP ONE (08:45)
[2020-07-29] MEDS ORDERED: MethylPREDNISolone SOD SUCC 125 MG/2 ML VIAL ONE (09:03)
[2020-07-29] MEDS ORDERED: OXYGEN THERAPY IH SCH (20:00)
== END 2020-07-29 11:15 | disposition home or self-care (01) ==
LOC: SURGERY 06:17
PROVIDERS: ATTEND Internal Medicine Critical Care Medicine
DX: R06.2 Wheezing (principal); R49.0 Dysphonia; J34.89 Other specified disorders of nose and nasal sinuses; J98.8 Other specified respiratory disorders; J38.4 Edema of larynx; B37.0 Candidal stomatitis; I10 Essential (primary) hypertension; F34.9 Persistent mood [affective] disorder, unspecified; F32.9 Major depressive disorder, single episode, unspecified; E03.9 Hypothyroidism, unspecified; K21.9 Gastro-esophageal reflux disease without esophagitis; F41.9 Anxiety disorder, unspecified; E46 Unspecified protein-calorie malnutrition; J44.9 Chronic obstructive pulmonary disease, unspecified; Z88.0 Allergy status to penicillin; Z87.01 Personal history of pneumonia (recurrent); Z79.899 Other long term (current) drug therapy
CPT/HCPCS: 31623; 31624; 71045; 87015; 87070; 87101; 87206; 87220; J2250; J3010; J7030; J2930; J7613; Z7610

== ENCOUNTER → 2022-09-22 | Outpatient (CLI) | payer OTHER ==
[~2022-09-22] MED LIST changes: -ALBU8.5H8 IH; -AMLO10TA55 PO; +APIX5TAB PEG; -ASPI81TA87 PO; -ATOR40TA71 PO; +BECL10.62 IH; +BUSP10TA23 PEG; +DOCU-385 PO; +ESCI-8 PEG; +FURO20 PEG; +HYDR-4584 PEG; +IPRAHFA IH; +LEVAHFA IH; +LIDO30GE4 TP; +MULT9LIQ9 PEG; +OMEP20 PEG; +PATI8.4P PEG; +PRED-729 PEG; +SCOP1PAT12 TD
== END | disposition home or self-care (01) ==
LOC: RADMN 12:50
PROVIDERS: ATTEND Internal Medicine
DX: I65.23 Occlusion and stenosis of bilateral carotid arteries (principal); R90.82 White matter disease, unspecified; J32.0 Chronic maxillary sinusitis; J32.1 Chronic frontal sinusitis; J32.3 Chronic sphenoidal sinusitis; R29.818 Other symptoms and signs involving the nervous system
CPT/HCPCS: 70544; 70551; 94002